=== PATIENT | female | born 1935 | race Caucasian/White ===

== ENCOUNTER 2016-05-01 10:08 | Outpatient (CLI) ==
[2015-11-12 16:06] VITALS: BMI 25.7
[2016-05-01 11:02] LABS: BASOPHILS # (AUTO) 0.1 K/uL (0-0.2); BASOPHILS % (AUTO) 1.3 % (0.0-3.0); EOSINOPHILS # (AUTO) 0.3 K/ul (0.0-0.7); EOSINOPHILS % (AUTO) 4.1 % (0.0-7.0); HEMATOCRIT 28.1 % (37.0-47.0); HEMOGLOBIN 8.3 g/dl (12.0-16.0); IMMATURE GRANULOCYTE % (AUTO) 0.2 % (0.0-5.0); LYMPHOCYTES # (AUTO) 1.8 K/uL (0.60-3.4); LYMPHOCYTES % (AUTO) 28.1 (10.0-50.0); MEAN CORPUSCULAR HEMOGLOBIN 21.1 pg (27.0-31.0); MEAN CORPUSCULAR HGB CONC 29.5 (31.8-35.4); MEAN CORPUSCULAR VOLUME 71.5 fl (81.0-99.0); MONOCYTES # (AUTO) 0.6 K/uL (0.4-2.0); MONOCYTES % (AUTO) 9.8 (0-10); NEUTROPHILS # (AUTO) 3.6 K/ul (2.0-6.9); NEUTROPHILS % (AUTO) 56.5; PLATELET COUNT 310 10^3/uL (140-440); RED BLOOD COUNT 3.93 10^6/ul (4.20-5.40); WHITE BLOOD COUNT 6.34 K/ul (4.6-10.2)
[2016-05-02 11:37] VITALS: BMI 28.0
== END 2016-05-01 10:09 | disposition home or self-care (01) ==
LOC: LAB 10:08
PROVIDERS: ATTEND Internal Medicine
DX: D64.9 Anemia, unspecified (principal)
CPT/HCPCS: 36415; 85025

== ENCOUNTER 2016-05-02 10:18 | Inpatient (IN) ==
[2016-05-02] MEDS ORDERED: TYLENOL PO PRN (10:58)
[2016-05-02] MEDS ORDERED: ATROPINE SULFATE PFS IVP PRN (10:58)
[2016-05-02] MEDS ORDERED: MORPHINE 4 MG/ML SYRINGE IVP PRN (10:58)
[2016-05-02] MEDS ORDERED: VISTARIL INJ IM PRN (10:58)
[2016-05-02] MEDS ORDERED: NITROSTAT SL PRN (10:58)
[2016-05-02 11:37] VITALS: BMI 28.0
[2016-05-02 11:50] LABS: BASOPHILS # (AUTO) 0.1 K/uL (0-0.2); BASOPHILS % (AUTO) 0.9 % (0.0-3.0); EOSINOPHILS # (AUTO) 0.2 K/ul (0.0-0.7); HEMATOCRIT 26.5 % (37.0-47.0); HEMOGLOBIN 7.9 g/dl (12.0-16.0); IMMATURE GRANULOCYTE % (AUTO) 0.2 % (0.0-5.0); LYMPHOCYTES # (AUTO) 1.6 K/uL (0.60-3.4); LYMPHOCYTES % (AUTO) 29.9 (10.0-50.0); MEAN CORPUSCULAR HEMOGLOBIN 21.2 pg (27.0-31.0); MEAN CORPUSCULAR HGB CONC 29.8 (31.8-35.4); MONOCYTES # (AUTO) 0.5 K/uL (0.4-2.0); MONOCYTES % (AUTO) 9.5 (0-10); NEUTROPHILS % (AUTO) 55.5; PLATELET COUNT 286 10^3/uL (140-440); RED BLOOD COUNT 3.73 10^6/ul (4.20-5.40); WHITE BLOOD COUNT 5.46 K/ul (4.6-10.2)
[2016-05-02 11:51] LABS: IMMATURE RETIC FRACTION 30.5; RETICULOCYTE % 1.42 %
[2016-05-02 12:52] LABS: ALBUMIN 3.7 g/dL (3.4-5.0); ALBUMIN/GLOBULIN RATIO 1.12; ANION GAP 13.1; BILIRUBIN,TOTAL 0.39 mg/dL (0.00-1.20); BUN/CREATININE RATIO 26.31; CALCIUM 8.8 mg/dL (8.2-10.2); CREATININE 0.76 mg/dL (0.60-1.30); FERRITIN 8.54 ng/mL (4.63-204.00); FOLATE 15.9 ng/mL (3.1-20.5); POTASSIUM 3.1 mmol/L (3.5-5.10); TROPONIN I 0.015 ng/ml (0.0000-0.4000)
--- NOTE | 2016-05-02 13:30 | DI ---
EXAM: Single frontal view of the chest HISTORY: Hypertension with anemia. COMPARISON: Chest x-ray 11/12/2015 FINDINGS: Cardiomediastinal silhouette is stable enlarged with intact sternotomy wires. There is no pneumothorax or pleural effusion. There is no consolidation, nodule or mass. The osseous structur es are unremarkable. There is a moderate hiatal hernia present. IMPRESSION: 1. Stable cardiomegaly with no acute cardiopulmonary process. 2. Moderate stable hiatal hernia.
--- NOTE | 2016-05-02 14:17 | CT ---
EXAM: CT abdomen with and without contrast. CT pelvis with and without contrast. HISTORY: Abdominal pain. Anemia. COMPARISON: None available. TECHNIQUE: Multiple axial images of the abdomen and pelvis were obtained prior to and following int ravenous administration of 75 mL of Omnipaque 350, low osmolar. Images reformatted in the coronal p oh. FINDINGS: Subsegmental atelectasis noted in the lung bases. Degenerative changes present in the sp ine. The liver, gallbladder, pancreas, spleen, adrenal glands, and kidneys are without acute abnormality. A 0.7 cm posterior right hepatic lobe lesion on postcontrast axial image 52 is statistically most l ikely a cyst or hemangioma Large hiatal hernia contains most of the stomach. The small and large bowel are normal in course an d caliber without evidence for obstruction or inflammatory process. The appendix is normal. Divert icula are present in the colon. Small fat-containing umbilical hernia noted. There appears to be f luid within the endometrial canal. No localized uterine abnormality identified. Bladder is unremar kable. No free fluid, free air or lymphadenopathy identified. Extensive atherosclerotic calcificati ons present. Bilateral renal artery stents noted. IMPRESSION: 1. No acute inflammatory process in the abdomen or pelvis. 2. Large hiatal hernia. 3. Diverticulosis. 4. Suspected fluid in the endometrial canal, which would be abnormal for a postmenopausal patient.
[2016-05-02] MEDS: CARAFATE PO SCH ×2 (17:00→20:36)
[2016-05-02] MEDS: PROTONIX PO SCH (17:00)
[2016-05-02] MEDS: ZANTAC PO SCH (17:00)
[2016-05-02] MEDS: COREG PO SCH (17:00)
[2016-05-02 19:25] LABS: BILIRUBIN,URINE Negative (NEGATIVE); KETONES,URINE Negative (NEGATIVE); LEUKOCYTE ESTERASE ,URINE Negative (NEGATIVE); NITRITE,URINE Negative (NEGATIVE); PROTEIN,URINE Negative (NEGATIVE); URINE, BLOOD 1+ (NEGATIVE)
[2016-05-02 19:26] LABS: ADD URINE MICROSCOPIC YES
[2016-05-02] MEDS: LIPITOR PO SCH (20:36)
[2016-05-02] MEDS: NORVASC PO SCH (20:36)
[2016-05-02] MEDS: ZOCOR PO SCH (20:36)
[2016-05-02] MEDS: FERROUS SULFATE PO SCH (20:37)
[2016-05-02 20:53] LABS: TROPONIN I 0.012 ng/ml (0.0000-0.4000)
[2016-05-02] MEDS ORDERED: CARVEDILOL PO SCH (21:00)
[2016-05-02] MEDS ORDERED: CELEXA PO SCH (21:00)
[2016-05-02] MEDS ORDERED: NON-FORMULARY MEDICATION (Ferrous Sulfate [Iron] 325 MG) PO SCH ×22 (21:00)
[2016-05-03 00:42] LABS: HEMATOCRIT 28.9 % (37.0-47.0)
[2016-05-03] MEDS: PROTONIX PO SCH ×2 (05:38→16:34)
[2016-05-03] MEDS: ZANTAC PO SCH ×2 (05:38→16:34)
[2016-05-03] MEDS: CARAFATE PO SCH ×4 (05:38→20:08)
[2016-05-03] MEDS ORDERED: PROTONIX PO SCH (06:30)
[2016-05-03] MEDS ORDERED: ASPIRIN CHEWABLE PO SCH (08:00)
[2016-05-03] MEDS ORDERED: ASPIRIN EC PO SCH (08:00)
[2016-05-03 08:06] LABS: HEMATOCRIT 31.1 % (37.0-47.0); HEMOGLOBIN 9.5 g/dl (12.0-16.0); MEAN CORPUSCULAR HEMOGLOBIN 22.1 pg (27.0-31.0); MEAN CORPUSCULAR HGB CONC 30.5 (31.8-35.4); MEAN CORPUSCULAR VOLUME 72.5 fl (81.0-99.0); RED BLOOD COUNT 4.29 10^6/ul (4.20-5.40); WHITE BLOOD COUNT 5.43 K/ul (4.6-10.2)
[2016-05-03] MEDS: COZAAR PO SCH (08:12)
[2016-05-03] MEDS: COREG PO SCH ×2 (08:12→16:34)
[2016-05-03] MEDS: HYDROCHLOROTHIAZIDE PO SCH (08:12)
[2016-05-03] MEDS: FERROUS SULFATE PO SCH ×2 (08:12→20:08)
[2016-05-03 08:35] LABS: ALANINE AMINOTRANSFERASE < 6 U/L (12-78); ALBUMIN 3.6 g/dL (3.4-5.0); ALBUMIN/GLOBULIN RATIO 1.13; ALKALINE PHOSPHATASE 51 U/L (53-141); ANION GAP 13.3; ASPARTATE AMINO TRANSFERASE 13 U/L (15-37); BILIRUBIN,TOTAL 0.74 mg/dL (0.00-1.20); BLOOD UREA NITROGEN 16 mg/dL (7-18); BUN/CREATININE RATIO 21.62; CALCIUM 8.6 mg/dL (8.2-10.2); CARBON DIOXIDE 25 mmol/L (23-31); CHLORIDE 108 mmol/L (98-107); CREATININE 0.74 mg/dL (0.60-1.30); GLUCOSE 107 mg/dL (82-115); POTASSIUM 3.3 mmol/L (3.5-5.10); SODIUM 143 mmol/L (136-145); TOTAL PROTEIN 6.8 g/dL (5.8-8.1)
[2016-05-03] MEDS ORDERED: NON-FORMULARY MEDICATION (Losartan/Hydrochlorothiazide [Losartan-Hctz 100-25 Mg Tab] 1 EAC PO SCH (09:00)
[2016-05-03] MEDS ORDERED: PLAVIX PO SCH (09:00)
[2016-05-03] MEDS: ARICEPT PO SCH (11:55)
[2016-05-03] MEDS: K-DUR PO SCH ×2 (15:22→20:08)
[2016-05-03 18:17] LABS: HEMATOCRIT 35.1 % (37.0-47.0); HEMOGLOBIN 10.9 g/dl (12.0-16.0)
[2016-05-03] MEDS: NAMENDA PO SCH (20:08)
[2016-05-03] MEDS: LIPITOR PO SCH (20:08)
[2016-05-03] MEDS: ZOCOR PO SCH (20:08)
[2016-05-03] MEDS: NORVASC PO SCH (20:08)
[2016-05-04] MEDS: CARAFATE PO SCH ×4 (05:51→20:24)
[2016-05-04] MEDS: PROTONIX PO SCH ×2 (05:51→16:37)
[2016-05-04] MEDS: ZANTAC PO SCH ×2 (05:51→16:37)
[2016-05-04 07:58] LABS: HEMATOCRIT 34.5 % (37.0-47.0); HEMOGLOBIN 10.8 g/dl (12.0-16.0); MEAN CORPUSCULAR HEMOGLOBIN 22.7 pg (27.0-31.0); MEAN CORPUSCULAR HGB CONC 31.3 (31.8-35.4); MEAN CORPUSCULAR VOLUME 72.5 fl (81.0-99.0); RED BLOOD COUNT 4.76 10^6/ul (4.20-5.40); WHITE BLOOD COUNT 7.21 K/ul (4.6-10.2)
[2016-05-04 08:14] LABS: ALANINE AMINOTRANSFERASE < 6 U/L (12-78); ALBUMIN 3.6 g/dL (3.4-5.0); ALBUMIN/GLOBULIN RATIO 1.03; ALKALINE PHOSPHATASE 52 U/L (53-141); ANION GAP 13.4; ASPARTATE AMINO TRANSFERASE 12 U/L (15-37); BILIRUBIN,TOTAL 0.69 mg/dL (0.00-1.20); BLOOD UREA NITROGEN 16 mg/dL (7-18); BUN/CREATININE RATIO 20.51; CALCIUM 8.9 mg/dL (8.2-10.2); CARBON DIOXIDE 24 mmol/L (23-31); CHLORIDE 108 mmol/L (98-107); CREATININE 0.78 mg/dL (0.60-1.30); GLUCOSE 109 mg/dL (82-115); POTASSIUM 3.4 mmol/L (3.5-5.10); SODIUM 142 mmol/L (136-145); TOTAL PROTEIN 7.1 g/dL (5.8-8.1)
[2016-05-04] MEDS: COZAAR PO SCH (08:24)
[2016-05-04] MEDS: K-DUR PO SCH ×3 (08:24→20:24)
[2016-05-04] MEDS: ARICEPT PO SCH (08:24)
[2016-05-04] MEDS: FERROUS SULFATE PO SCH ×2 (08:24→20:23)
[2016-05-04] MEDS: HYDROCHLOROTHIAZIDE PO SCH (08:25)
[2016-05-04] MEDS: COREG PO SCH ×2 (08:25→16:38)
[2016-05-04] MEDS: ZOCOR PO SCH (20:24)
[2016-05-04] MEDS: LIPITOR PO SCH (20:24)
[2016-05-04] MEDS: NORVASC PO SCH (20:24)
[2016-05-04] MEDS: NAMENDA PO SCH (20:24)
[2016-05-05 04:46] LABS: HEMATOCRIT 36.6 % (37.0-47.0); HEMOGLOBIN 11.4 g/dl (12.0-16.0); MEAN CORPUSCULAR HEMOGLOBIN 22.9 pg (27.0-31.0); MEAN CORPUSCULAR HGB CONC 31.1 (31.8-35.4); MEAN CORPUSCULAR VOLUME 73.5 fl (81.0-99.0); RED BLOOD COUNT 4.98 10^6/ul (4.20-5.40); WHITE BLOOD COUNT 5.86 K/ul (4.6-10.2)
[2016-05-05 05:06] LABS: ALANINE AMINOTRANSFERASE < 6 U/L (12-78); ALBUMIN 3.6 g/dL (3.4-5.0); ALBUMIN/GLOBULIN RATIO 1.06; ALKALINE PHOSPHATASE 53 U/L (53-141); ANION GAP 11.8; ASPARTATE AMINO TRANSFERASE 12 U/L (15-37); BILIRUBIN,TOTAL 0.48 mg/dL (0.00-1.20); BLOOD UREA NITROGEN 16 mg/dL (7-18); CALCIUM 9.4 mg/dL (8.2-10.2); CARBON DIOXIDE 28 mmol/L (23-31); CHLORIDE 107 mmol/L (98-107); GLUCOSE 112 mg/dL (82-115); POTASSIUM 3.8 mmol/L (3.5-5.10); SODIUM 143 mmol/L (136-145)
[2016-05-05] MEDS: PROTONIX PO SCH ×2 (05:31→16:52)
[2016-05-05] MEDS: ZANTAC PO SCH ×2 (05:32→16:53)
[2016-05-05] MEDS: CARAFATE PO SCH ×4 (05:32→21:00)
[2016-05-05] MEDS: ARICEPT PO SCH (08:34)
[2016-05-05] MEDS: COREG PO SCH ×2 (08:35→16:53)
[2016-05-05] MEDS: COZAAR PO SCH (08:36)
[2016-05-05] MEDS: FERROUS SULFATE PO SCH ×2 (08:37→20:57)
[2016-05-05] MEDS: K-DUR PO SCH ×3 (08:37→21:00)
[2016-05-05] MEDS: HYDROCHLOROTHIAZIDE PO SCH (08:37)
[2016-05-05] MEDS ORDERED: ZOFRAN 4 MG/2 ML IVP STA (11:41)
--- NOTE | 2016-05-05 12:19 | US ---
EXAM: Ultrasound Transvaginal Non-obstetrical. HISTORY: Endometrial fluid on recent CT. COMPARISON: Abdominal CT 05/02/2016. TECHNIQUE: Hernández scale and color doppler images with transvaginal probe. FINDINGS: The uterus measures 7.3 x 3.4 x 5.2 cm. Ovoid hypoechoic structure in the anterior myome trium near the fundus measures approximately 1.6 x 1.4 x 1.4 cm. Possible additional similar-appear ing lesion noted. Endometrial stripe measures approximately 0.4 cm. There is a moderate amount of fluid within the endometrial canal. Nabothian cyst noted in the cervix. The ovaries are not seen. No pelvic fluid collections identified. IMPRESSION: 1. Moderate amount of fluid within the endometrial canal which is abnormal for a post menopausal pa tient. Endometrial stripe is not overtly thickened. Consider direct inspection. 2. Probable small uterine fibroids. 3. Nonvisualized ovaries.
[2016-05-05] MEDS ORDERED: DULCOLAX RC STA (13:29)
[2016-05-05] MEDS ORDERED: CITRATE OF MAGNESIA PO STA (13:29)
[2016-05-05 19:20] LABS: OCCULT BLOOD INTERNAL QC 1 INTERNAL QC VALID; OCCULT BLOOD SAMPLE 1 NEGATIVE (NEGATIVE)
[2016-05-05] MEDS: ZOCOR PO SCH (20:58)
[2016-05-05] MEDS: NAMENDA PO SCH (20:58)
[2016-05-05] MEDS: NORVASC PO SCH (20:58)
[2016-05-05] MEDS: LIPITOR PO SCH (21:02)
[2016-05-06 00:02] LABS: OCCULT BLOOD INTERNAL QC 2 INTERNAL QC VALID; OCCULT BLOOD SAMPLE 2 NO SPECIMEN RECEIVED (NEGATIVE); OCCULT BLOOD SAMPLE 3 NO SPECIMEN RECEIVED (NEGATIVE)
[2016-05-06 00:03] LABS: OCCULT BLOOD INTERNAL QC 3 INTERNAL QC VALID
[2016-05-06 05:40] LABS: HEMATOCRIT 37.5 % (37.0-47.0); HEMOGLOBIN 11.6 g/dl (12.0-16.0); MEAN CORPUSCULAR HEMOGLOBIN 22.9 pg (27.0-31.0); MEAN CORPUSCULAR HGB CONC 30.9 (31.8-35.4); RED BLOOD COUNT 5.07 10^6/ul (4.20-5.40); WHITE BLOOD COUNT 6.27 K/ul (4.6-10.2)
[2016-05-06 06:03] LABS: ALBUMIN 3.7 g/dL (3.4-5.0); ALBUMIN/GLOBULIN RATIO 1.06; BILIRUBIN,TOTAL 0.58 mg/dL (0.00-1.20); BUN/CREATININE RATIO 19.75; CALCIUM 9.6 mg/dL (8.2-10.2); CREATININE 0.81 mg/dL (0.60-1.30); TOTAL PROTEIN 7.2 g/dL (5.8-8.1)
[2016-05-06] MEDS: CARAFATE PO SCH ×2 (06:04→11:00)
[2016-05-06] MEDS: PROTONIX PO SCH (06:04)
[2016-05-06] MEDS: ZANTAC PO SCH (06:04)
[2016-05-06] MEDS: FERROUS SULFATE PO SCH (08:44)
[2016-05-06] MEDS: COZAAR PO SCH (08:45)
[2016-05-06] MEDS: COREG PO SCH (08:45)
[2016-05-06] MEDS: K-DUR PO SCH (08:45)
[2016-05-06] MEDS: HYDROCHLOROTHIAZIDE PO SCH (08:46)
[2016-05-06] MEDS: ARICEPT PO SCH (08:49)
[2016-05-06] MEDS ORDERED: ZOFRAN 4 MG/2 ML IVP STA (10:38)
[2016-05-06 10:42] VITALS: BP 127/78; TEMP 97.3
--- NOTE | 2016-05-06 11:25 | CM.DICTOOL ---
ADMISSION: 05/02/16 10:18 DISCHARGE: 2016 DATE OF SERVICE: 05/06/16 FINAL DIAGNOSIS Severe anemia, transfusion 3 units packed cells Hypertension Diabetes Mellitus, type 2 Dementia Depression Diverticulosis per CT abdomen Hiatal Hernia, per CT abdomen CABG, 1993 CAD with stent application 2010 History of Carotid Artery Stenosis LVH Dyslipidemia Renal Artery Stent, bilateral LAST VITALS Temp Pulse Resp BP Pulse Ox 97.0 F L 62 20 154/78 H 97 05/06/16 06:00 05/06/16 06:00 05/06/16 06:00 05/06/16 06:00 05/06/16 06:00 ACTIVE HOME MEDICATIONS Amlodipine Besylate (Norvasc) 5 mg PO BEDTIME [facility] Last Admin: 05/05/16 20:58 Dose: 5 mg Atorvastatin Calcium (Lipitor) 10 mg PO BEDTIME [facility] Last Admin: 05/05/16 21:02 Dose: 10 mg Carvedilol (Coreg) 12.5 mg PO BIDWM [facility] Last Admin: 05/06/16 08:45 Dose: 12.5 mg Ferrous Sulfate (Ferrous Sulfate) 324 mg PO BID [facility] Last Admin: 05/06/16 08:44 Dose: 324 mg Hydrochlorothiazide (Hydrochlorothiazide) 25 mg PO DAILY [facility] Last Admin: 05/06/16 08:46 Dose: 25 mg ( dose changed to 12.5 mg daily) Losartan Potassium (Cozaar) 100 mg PO DAILY [facility] Last Admin: 05/06/16 08:45 Dose: 100 mg Pantoprazole Sodium (Protonix) 40 mg PO DAILY AC [facility] Last Admin: 05/06/16 06:04 Dose: 40 mg Ranitidine HCl (Zantac) 150 mg PO BIDAC [facility] Last Admin: 05/06/16 06:04 Dose: 150 mg Sucralfate (Carafate) 1 gm PO ACHS [facility] Last Admin: 05/06/16 06:04 Dose: 1 gm Aspirin Chewable 81 mg daily Last Admin: ALLERGIES Sulfa (Sulfonamide Antibiotics) Allergy (Verified 11/12/15 16:07) Itching NEW PRESCRIPTIONS: Aricept 5 mg take 1 every morning Namenda 10 take 1 daily at bedtime K-dur 10 meq daily Losartan 100 mg-HCTZ 12.5 mg daily SMOKING: Not applicable DISEASE SPECIFIC EDUCATION: Anemia Medication changes New Medications Hiatal Hernia Appointments LAB REVIEW: 05/06/16 05:00 02/28/17 05:00 05/06/16 05:00: WBC 6.27, RBC 5.07, Hgb 11.6 L, Hct 37.5, MCV 74.0 L, MCH 22.9 L , MCHC 30.9 L, RDW Coeff of Shadi 19.1 H, Plt Count 305, Sodium 142, Potassium 4.0 , Chloride 104, Carbon Dioxide 27, Anion Gap 15.0, BUN 16, Creatinine 0.81, Estimated GFR (MDRD) 68.00, BUN/Creatinine Ratio 19.75, Glucose 96, Calcium 9.6 , Total Bilirubin 0.58, AST 13 L, ALT 6 L, Alkaline Phosphatase 53, Total Protein 7.2, Albumin 3.7, Globulin 3.5, Albumin/Globulin Ratio 1.06 05/05/16 17:30: Stl Occult Blood (IFOB) Negative, Stool Occult Blood #2 No specimen received, Stool Occult Blood #3 No specimen received PLAN: Discharge home Diet: Resume as tolerated. Activity: Gradually resume as tolerated. No work until released by Dr. Tierney Medication change: Stop Plavix Stop Simvastatin Stop Potassium (over the counter) Stop Losartan 100 mg- HCTZ 25 mg Appointments: 1. Dr. Tierney on May 12 at 9:[address] Lane ([facility]) on May 13 at [address] Milner on June 05 at 10:15 am Ms. Basurto is alert and oriented x 3. She is forgetful at times. She is independent with ADL'S and ambulates without use of assistive device. She is eating all meals with a good appetite. She does complain of nausea after eating , but relates this to her known hiatal hernia. Last BM yesterday after dulcolax suppository and mag citrate 1/2 bottle. The stool for occult blood was negative. No skin breakdown is noted, skin is free of irritation or rashes. She is agreeable to see Dr. Lane due to anemia, hiatal hernia. She is agreeable also to a gynecology appointment. Darren Tierney MD
--- NOTE | 2016-05-06 15:18 | PN ---
DATE OF SERVICE: 05/05/16 SUBJECTIVE: The patient is an 80 year old female hospitalized with severe anemia. The patient's hgb dropped to 7.3 within 2-3 months from February 17 hgb 12 with hct 36. The patient has been given three units of packed red cells and her hgb has been stabilized 11.4 and 36. The patient was supposed to go home but she developed nausea with some vomiting. She has large hiatal hernia that could be the source of bleeding. In any case there is evidence of active GI bleed at present time. REVIEW OF SYSTEMS: CONSTITUTIONAL: No night sweats. No fatigue, malaise, lethargy. No fever or chills. HEENT: Eyes: No visual changes. No eye pain. No eye discharge. ENT: No runny nose. No epistaxis. No sinus pain. No sore throat. No odynophagia. No congestion. RESPIRATORY: No cough, no congestion. No hemoptysis. CARDIOVASCULAR: No angina symptoms. No CHF symptoms. No atypical chest pain for CAD. No palpitations. No shortness of breath. No PND. No Orthopnea. GASTROINTESTINAL: No abdominal pain. mild nausea. Constipation, BM before she goes home. She just had one BM for past 4-5 days. No hematemesis. No hematochezia. The nausea could be from Aricept but we will see how she does tomorrow. GENITOURINARY: No urgency. No frequency. No dysuria. No hematuria. No obstructive symptoms. No discharge. No pain. No significant abnormal bleeding. MUSCULOSKELETAL: No musculoskeletal pain; no joint swelling. NEUROLOGICAL: No headache. No neck pain. No syncope. No seizures. No dizziness. PSYCHIATRIC: Not anxious. No depression. No suicidal thoughts. No homicidal thoughts. SKIN: No rash. No lesions. No wounds. ENDOCRINE: No unexplained weight loss. No weight gain. HEMATOLOGIC/LYMPHATIC: No anemia. No purpura. No petechiae. No prolonged or excessive bleeding. No palpable lymph nodes. PHYSICAL EXAMINATION: GENERAL: The patient is oriented to time, place and person. VITAL SIGNS: Temperature 97.5, pulse 52, respiratory rate 18, blood pressure 145/70 and pulse ox 96%. HEENT: Head normocephalic, atraumatic. Eyes: Extraocular muscles are intact. Pupils are equal, round and reactive to light and accommodation. Ears: No lesions. Nose appeared normal. Throat: No exudate or erythema. NECK: Supple. No JVD, no carotid bruit. No lymphadenopathy or thyromegaly. LUNGS: Decreased breath sounds but clear to auscultation. Percussion note normal. Chest symmetrical. HEART: S1, S2, no S3. No murmurs. No cyanosis or clubbing. No ascites. Pulses: Dorsalis pedis and posterior tibial pulses +1 to +2 both sides. ABDOMEN: Soft. Nontender. Bowel sounds active. No CVA tenderness. No mass felt. EXTREMITIES: No edema. Full range of motion of all extremities, equal. NEUROLOGIC: No focal deficit. Cranial nerves II through XII are grossly intact. No headache, no double vision or headache. SKIN: Not dry. Intact. Turgor - normal. LYMPHATIC: No palpable lymph nodes/no lymphedema. MUSCULOSKELETAL: Normal joints with no swelling. Muscle tone is normal. ASSESSMENT: 1. Anemia, stable likely cause of bleeding could be large hiatal hernia. The patient had upper GI endoscopy and colonoscopy with in one year. 2. Coronary artery disease 3. Hypertension PLAN: 1. Continue Iron supplement 2. Continue Carafate and put on pump inhibitors 3. We already stopped the Plavix and Aspirin. 4. The patient's explained about the findings and advised not take any blood thinner except for maybe baby aspirin. 5. DC the Plavix for now. 6. The Risks that we are taking is worth it considering the patient's drop in the hgb until we figure it out what has caused this hgb drop. The patient is agreeable to be seen by conservation of resources commissioner again. The patient's other finding is the patient's endometrial fluid in the endometrial canal which is supposed to be abnormal with history of spotting. we are going to refer her to printer slotter operator. TIME SPENT: More than 30 minutes. Plan and coordination of the patient's care discussed in the presence of nurse. KARYN
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
--- NOTE | 2016-05-07 10:06 | HP ---
DATE OF SERVICE: 05/02/16 REASON FOR HOSPITALIZATION/ HISTORY OF PRESENT ILLNESS: History of anemia but lately tired with short of breath. Hgb/HCT in past few months from to 8.3/28. Short of breath with extra light headed, no symptoms of CHF. REVIEW OF SYSTEMS: CONSTITUTIONAL: No fever, Fatigue. HEENT: No sinus drainage, no sore throat. RESPIRATORY: No cough, no congestion. CARDIOVASCULAR: No atypical chest pain for coronary artery disease. No angina , CHF symptoms, palpitations. Shortness of breath mild exertion. GASTROINTESTINAL: No melena or abdominal pain. No GERD. GENITOURINARY: No hematuria, no prostatism, no polyuria. TEST DIRECTOR: No blackout, no dizziness, no headache, no double vision. MUSCULOSKELETAL: osteoarthritis pain, no joint swelling. ENDOCRINE: No weight loss, no weight gain. SKIN: Not dry, no rash. PSYCHIATRIC: Not anxious, no depression, no suicidal thoughts, no homicidal thoughts. SOCIAL HISTORY: Marital Status: ,4 children 3 living and one . Alcohol Usage: No. Tobacco Usage: No. MEDICAL/SURGICAL HISTORY: Bypass-Gastelum 1992 Stents x2 Bobby 2010 Renal artery stent Coronary artery disease Hypertension Dyslipidemia Diabetes mellitus Depression LVH Dementia History of carotid stenosis FAMILY HISTORY: Father -[place] Mother -[place] Brother-1 Sister-2 MEDICATIONS: Clopidogrel 75mg PO daily Losartan/Hydrochlorothiazide 1 each PO daily Citalopram 20mg PO bedtime Gaviscon liquid 355ml PO four times a day PRN Calcium 600/ Vitamin D one each PO twice a day Carafate 1 gram PO four times a day Zantac 150mg PO twice a day Aspirin 81mg PO daily Zocor 40mg PO bedtime Carvedilol 0.5 PO twice a day Protonix 40mg PO daily Iron 325mg PO twice a day Atorvastatin 10mg PO bedtime Norvasc 5mg PO bedtime ALLERGIES: Sulfa PHYSICAL EXAMINATION: V/S: Pulse 74, blood pressure 152/84 and pulse ox 97%. 5'3", 158.8 pounds and BMI 28.1. GENERAL APPEARANCE: Oriented times three. Pallor positive. HEENT: Normal. NECK: No JVP, no bruits. RESPIRATORY: Lungs are clear. CARDIOVASCULAR: S1, S2, no S3, Grade II/ systolic murmurs. No cyanosis, clubbing. No ascites. GI/ABDOMEN: No tenderness. Bowel sounds are active. EXTREMITIES: edema, pulses +1, equal. TEST DIRECTOR: Deep tendon reflexes, sensory, motor and gait all normal. RECTAL: 09/21 Dr. Emmanuel/PELVIC: advisedly yearly . ASSESSMENT: 1. Anemia, severe/ short of breath 2. Coronary artery disease with stent x2 2010 3. PVD 4. CABG, 5. History or carotid stenosis 6. Hypertension 7. LVH 8. Diabetes Mellitus, type 2, A1c 6.4 (04/25) 9. Dyslipidemia 10.Depression, Celexa helping 11.History of renal artery stent 12.Dementia 13.Diverticulosis of colon 14.Large Hiatal Hernia 15.LVEF 40 to 45% 16.Bradycardia 17.LV cavity enlargement 18.Vaginal bleeding x1 10 day ago little PLAN: 1. Admit to regular 2. Routine telemetry orders 3. Daily CBC and CMP AM 4. Type and cross match 2 units 5. Give one unit of packed red cells 6. Stool for Occult blood x2 7. CT scan of abdomen and pelvis with contrast 8. Continue all home medications 9. Anemia profile TIME SPENT: More than 70 minutes. MTDD
--- NOTE | 2016-05-07 11:07 | DS ---
DATE OF SERVICE: 05/06/16 FINAL DIAGNOSIS: 1. Severe anemia, transfusion 2 units packed cells 2. Hypertension 3. Diabetes mellitus, type 2 4. Dementia 5. Depression 6. Diverticulosis per CT abdomen 7. Hiatal Hernia, per CT Abdomen 8. CABG, 1992 9. Coronary artery disease with stent application 2010 10.History fo carotid artery stenosis 11.LVH 12.Dyslipidemia 13.Renal artery stent, bilateral LAST VITALS: Temperature 98, pulse 62, respiratory 20, blood pressure 154/78 and pulse ox 97% DISCHARGE INSTRUCTIONS: Discharge home. Stop Plavix. Stop Simvastatin. Stop Potassium(over the counter) . Stop Losartan 100mg-HCTZ 25mg. Dr. Tierney on may 12 at 9:15, Dr. Lane on May [address] Milner on June 05 at 10:15am. MEDICATIONS AT DISCHARGE: Norvasc 5mg PO bedtime Lipitor 10mg PO bedtime Coreg 12.5mg PO twice a day Ferrous Sulfate 324mg PO twice a day Hydrochlorothiazide 25mg PO daily Cozaar 100mg PO daily Protonix 40mg PO daily Zantac 150mg PO twice a day Carafate 1 gram PO ACHS Aspirin 81mg Daily ALLERGIES: Sulfa NEW PRESCRIPTIONS: Aricept 5mg take one every morning Namenda 10 take one daily at bedtime K-dur 10 meq daily Losartan 100mg-HCTZ 12.5mg daily DIET INSTRUCTIONS: Resume as tolerated ACTIVITY: Gradually resume as tolerated. No work until released by Dr. Tierney. SMOKING: Not applicable DISEASE SPECIFIC EDUCATION: Anemia Medication changes New medications Hiatal Hernia Appointments HOSPITAL COURSE: The patient is a 80 year old white female hospitalized with severe anemia. The patient was short of breath and fatigued. Hgb had dropped from 12.5 with hct of 37 to 7.7 with hct 22 in two to three months time. There is evidence of active GI bleed. The patient had upper GI endoscopy and colonoscopy nearly a year ago reported as practically normal except for hiatal hernia. The patient during the stay in the hospital was put on pump inhibitor and Carafate. The Plavix was discontinued 3 units of packed red cells were given. The patient's hgb is 11.6 with hct of 37 it has been stable for past 48 hours. Her cardiovascular status is stable with no evidence of coronary insufficiency or congestive heart failure. The patient also had another finding with history of vaginal spotting and endometrial fluid collection for that the patient was referred to Dr. Milner. The patient also referred to sewing room supervisor for further work up. The patient has been started on Aricept and Namenda. The family knows about her Alzheimer's disease and they are following her closely. 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 CONDITION: Stable. TIME SPENT: More than 60 minutes. KARYN
--- NOTE | 2016-05-07 11:09 | PN ---
05/02/16: Level 5 05/03/16: Intermediate 05/04/16: Intermediate 05/05/16: Intermediate 05/06/16: D as in discharge MTDD
--- NOTE | 2016-05-14 09:33 | PN ---
DATE OF SERVICE: 05/06/16 - DISCHARGE NOTE SUBJECTIVE: The patient was seen today and she is up and about. The daughter, Marisol, is present in the room. The patient is doing well. She has mild nausea, could be from Aricept, could be from her huge hiatal hernia but in any case, the patient doesn't have any vomiting. She is feeling much better. Her hemoglobin and hematocrit are stable with hemoglobin of 11.6, hematocrit 37, no evidence of bleeding. The patient is taken off Plavix. I explained to her that of course we are taking a chance by discontinuing Plavix with her coronary artery disease but needs to just stay on baby aspirin until we figure out source of bleeding and until she is seen by band splitter. The patient also has endometrial canal fluid buildup and she has been scheduled with Dr. Milner as an outpatient. REVIEW OF SYSTEMS: CONSTITUTIONAL: No night sweats. No fatigue, malaise, lethargy. No fever or chills. HEENT: Eyes: No visual changes. No eye pain. No eye discharge. ENT: No runny nose. No epistaxis. No sinus pain. No sore throat. No odynophagia. No congestion. RESPIRATORY: No cough, no congestion. No hemoptysis. CARDIOVASCULAR: No angina symptoms. No CHF symptoms. No atypical chest pain for CAD. No palpitations. No shortness of breath. GASTROINTESTINAL: No abdominal pain. No nausea or vomiting. No diarrhea or constipation. No hematemesis. No hematochezia. GENITOURINARY: No urgency. No frequency. No dysuria. No hematuria. No obstructive symptoms. No discharge. No pain. No significant abnormal bleeding. MUSCULOSKELETAL: No musculoskeletal pain; no joint swelling. NEUROLOGICAL: No headache. No neck pain. No syncope. No seizures. No dizziness. PSYCHIATRIC: Not anxious. No depression. No suicidal thoughts. No homicidal thoughts. SKIN: No rash. No lesions. No wounds. ENDOCRINE: No unexplained weight loss. No weight gain. HEMATOLOGIC/LYMPHATIC: No anemia. No purpura. No petechiae. No prolonged or excessive bleeding. No palpable lymph nodes. PHYSICAL EXAMINATION: GENERAL: The patient is oriented to time, place and person. VITAL SIGNS: Temperature 97, pulse 62, respiratory rate 20, BP 150/78, pulse ox 97%. HEENT: Head normocephalic, atraumatic. Eyes: Extraocular muscles are intact. Pupils are equal, round and reactive to light and accommodation. Ears: No lesions. Nose appeared normal. Throat: No exudate or erythema. NECK: Supple. No JVD, no carotid bruit. No lymphadenopathy or thyromegaly. LUNGS: Decreased breath sounds. Clear to auscultation. Percussion note normal. Chest symmetrical. HEART: S1, S2, no S3. No murmurs. No cyanosis or clubbing. No ascites. Pulses: Dorsalis pedis and posterior tibial pulses +1 to +2 both sides. ABDOMEN: Soft. Nontender. Bowel sounds active. No CVA tenderness. No mass felt. EXTREMITIES: No edema. Full range of motion of all extremities, equal. NEUROLOGIC: No focal deficit. Cranial nerves II through XII are grossly intact. No headache, no double vision or headache. SKIN: Not dry. Intact. Turgor - normal. LYMPHATIC: No palpable lymph nodes/no lymphedema. MUSCULOSKELETAL: Normal joints with no swelling. Muscle tone is normal. ASSESSMENT: 1. Anemia seems to be stable now. 2. Huge hiatal hernia 3. Hypertension 4. Coronary artery disease 5. Endometrial canal fluid PLAN: 1. Discharge home 2. To be followed as an outpatient - I will see her on Thursday 3. The patient is to be followed by Dr. Lane/Luis or Dr. Milner 4. The patient has agreed to take Aricept and Namenda, a smaller dose. Will increase the dose as an outpatient if tolerated. CONDITION: Stable. The patient seems functional, seems to be oriented to time, place and person. TIME SPENT: More than 30 minutes. Plan and coordination of the patient's care discussed in the presence of nurse. KARYN
== END 2016-05-06 13:27 | disposition home or self-care (01) | DRG 812 ==
LOC: MEDSURG A 10:18
PROVIDERS: ADMIT Internal Medicine; ATTEND Internal Medicine
PROC: 30233N1 Transfusion of Nonautologous Red Blood Cells into Peripheral Vein, Percutaneous Approach (ICD-10-PCS; principal; 2016-05-02)
PROC: 30233N1 Transfusion of Nonautologous Red Blood Cells into Peripheral Vein, Percutaneous Approach (ICD-10-PCS; 2016-05-02)
PROC: 30233N1 Transfusion of Nonautologous Red Blood Cells into Peripheral Vein, Percutaneous Approach (ICD-10-PCS; 2016-05-03)
DX: D64.9 Anemia, unspecified (principal); K44.9 Diaphragmatic hernia without obstruction or gangrene; K57.30 Diverticulosis of large intestine without perforation or abscess without bleeding; I10 Essential (primary) hypertension; G30.9 Alzheimer's disease, unspecified; F02.80 Dementia in other diseases classified elsewhere, unspecified severity, without behavioral disturbance, psychotic disturbance, mood disturbance, and anxiety; E11.9 Type 2 diabetes mellitus without complications; I25.10 Atherosclerotic heart disease of native coronary artery without angina pectoris; E87.6 Hypokalemia; I51.7 Cardiomegaly; E78.5 Hyperlipidemia, unspecified; F32.9 Major depressive disorder, single episode, unspecified; R11.2 Nausea with vomiting, unspecified; N95.0 Postmenopausal bleeding; Z95.1 Presence of aortocoronary bypass graft; Z95.5 Presence of coronary angioplasty implant and graft; Z86.79 Personal history of other diseases of the circulatory system; Z96.89 Presence of other specified functional implants; Z79.01 Long term (current) use of anticoagulants; Z79.899 Other long term (current) drug therapy
CPT/HCPCS: 36415; 36430; 80053; 81001; 82272; 82550; 82607; 82728; 82746; 83540; 83550; 83874; 84466; 84484; 85014; 85018; 85025; 85027; 85045; 86850; 86900; 86922; 93005; 93010

== ENCOUNTER 2016-10-22 08:02 | Outpatient (CLI) ==
--- NOTE | 2016-10-22 09:05 | US ---
Exam: Hernández-scale and color Doppler ultrasonographic evaluation of the right upper quadrant. Comparison: CT abdomen pelvis performed 05/02/2016. Reason for exam: Abdominal pain. FINDINGS: The liver measures approximately 11.06 cm in length with normal antegrade portal venous f low, and no intrahepatic ductal dilatation. There is no perihepatic free fluid. The gallbladder is unremarkable without intraluminal stones, sludge or polyp. The gallbladder wall measures 0.24 cm. The common bile duct appears unremarkable without intraluminal stone or polyp. The common bile duct measures 0.36 cm. The right kidney measures approximately 11.57 x 3.83 x 4.70 cm without hydronephrosis or nephrolithi asis. The pancreas is not well seen secondary to overlying bowel gas. Impression: No acute ultrasonographic findings are seen in the right upper quadrant.
== END 2016-10-22 08:03 | disposition home or self-care (01) ==
LOC: RAD 08:02
PROVIDERS: ATTEND Internal Medicine
DX: R10.9 Unspecified abdominal pain (principal); K21.9 Gastro-esophageal reflux disease without esophagitis

== ENCOUNTER 2016-10-24 08:35 | Outpatient (CLI) ==
--- NOTE | 2016-10-24 12:09 | NM ---
EXAM: Hepatobiliary scan HISTORY: Abdominal pain. GERD. COMPARISON: None of this type. Ultrasound 10/22/2016. PROCEDURE: The patient was injected with 5.3 mCi of 99mTc mebrofenin intravenously. Images of the a bdomen were obtained at 5 min intervals for 30 minutes. The patient was then given [address] after which images of the gallbladder were obtained to assess gallbladder contraction. FINDINGS: Sequential images demonstrate normal uptake of tracer into the liver. Activity is seen in the intrahepatic biliary ducts at about 15 minutes. The activity appears in the gallbladder at abo ut 20 minutes. Subsequent images demonstrate increasing activity in the gallbladder. Activity firs t appears in the small bowel at 45 minutes. The gallbladder ejection fraction is 35% . IMPRESSION: 1.Normal hepatobiliary scan. 2.The gallbladder ejection fraction is 35% (borderline normal).
== END 2016-10-24 08:36 ==
LOC: RAD 08:35
PROVIDERS: ATTEND Internal Medicine
DX: R10.9 Unspecified abdominal pain (principal); K21.9 Gastro-esophageal reflux disease without esophagitis

== ENCOUNTER 2016-11-27 11:35 | Outpatient (CLI) ==
[2016-11-27 11:55] LABS: BASOPHILS % (AUTO) 0.4 % (0.0-3.0); HEMATOCRIT 36.5 % (37.0-47.0); HEMOGLOBIN 12.8 g/dl (12.0-16.0); IMMATURE GRANULOCYTE % (AUTO) 0.4 % (0.0-5.0); LYMPHOCYTES # (AUTO) 1.3 K/uL (0.60-3.4); LYMPHOCYTES % (AUTO) 13.6 (10.0-50.0); MEAN CORPUSCULAR HGB CONC 35.1 (31.8-35.4); MEAN CORPUSCULAR VOLUME 85.5 fl (81.0-99.0); MONOCYTES # (AUTO) 0.9 K/uL (0.4-2.0); MONOCYTES % (AUTO) 9.7 (0-10); NEUTROPHILS # (AUTO) 7.3 K/ul (2.0-6.9); NEUTROPHILS % (AUTO) 75.9; PLATELET COUNT 180 10^3/uL (140-440); RED BLOOD COUNT 4.27 10^6/ul (4.20-5.40); WHITE BLOOD COUNT 9.62 K/ul (4.6-10.2)
[2016-11-27 12:14] LABS: ALBUMIN 3.5 g/dL (3.4-5.0); ALBUMIN/GLOBULIN RATIO 0.92; ANION GAP 16.5; BILIRUBIN,TOTAL 1.23 mg/dL (0.00-1.20); BUN/CREATININE RATIO 22.54; CALCIUM 9.6 mg/dL (8.2-10.2); CREATININE 1.02 mg/dL (0.60-1.30); POTASSIUM 3.5 mmol/L (3.5-5.10); TOTAL PROTEIN 7.3 g/dL (5.8-8.1)
== END 2016-11-27 11:36 | disposition home or self-care (01) ==
LOC: LAB 11:35
PROVIDERS: ATTEND Internal Medicine
DX: D64.9 Anemia, unspecified (principal); R53.83 Other fatigue
CPT/HCPCS: 36415; 80053; 85025

== ENCOUNTER 2016-12-04 09:04 | Inpatient (IN) ==
--- NOTE | 2016-12-04 09:32 | ED.PDOC ---
General ED Provider: Dr. LISA GAITAN Chief Complaint: Diarrhea Stated Complaint: Frequent watery stools onset 3 days ago, yesterday changed back to normal stools. Since onset has been aching all over, nauseated with occasional emesis. Denies pain. Daughter says she seems a little confused. Time Seen by Physician: 09:25 Mode of Arrival: Wheelchair Information Source: Family Primary Care Provider: ANA BARRY Nursing and Triage Documentation Reviewed and Agree: Yes Miscellaneous Complaint Exam - Complex/Multi-System Complaint/Exam Onset/Duration: 3 days Symptoms Are: Still present Episodes Lasting: Days Initial Severity: Moderate Current Severity: Moderate Location of Pain: "all over" Character: aching Aggravating: nothing Alleviating: nothing Associated Signs and Symptoms: Reports: Confusion, Weakness, Nausea, Vomiting, Diarrhea Recent Echo/LV Function: No Respiratory Distress: None JVD Present: No Tachypnea Present: No Stridor Present: No Abdominal Findings: Present: Normal findings (except for moderate epigastric tenderness) Meningeal Signs Positive: No Focal Weakness: Present: None Focal Sensory Loss: Present: None Gait: Unable Gag Reflex Present: Yes Babinski Sign: Negative Right, Negative Left Skin Findings: Present: Normal findings Joint Swelling Present: No In-Dwelling Device Present: No Differential Diagnosis: UTI (dehydration, viral gastroenteritis, influenza, cardiac etiology) Quality Indicators for AMI: EKG in 10min. Quality Indicators For Pneumonia/CAP: SpO2 assessed, Mental status assessed Review of Systems - Review Of Systems Constitutional: Reports: Malaise, Weakness Eyes: Reports: No symptoms Ears, Nose, Mouth, Throat: Reports: No symptoms Respiratory: Reports: Short of air Cardiac: Reports: No symptoms GI: Reports: Diarrhea (TNTC for 2 days, then normal BMs since yesterday), Nausea , Vomiting (twice) : Reports: No symptoms Musculoskeletal: Reports: Muscle pain (over entire body) Neurological: Reports: No symptoms All Other Systems: Reviewed and Negative Past Medical History - Past Medical History Endocrine: Reports: None Cardiovascular: Reports: CAD, VT, Hypertension Respiratory: Reports: None Hematological: Reports: None Gastrointestinal: Reports: None Genitourinary: Reports: None Neuro/Psych: Reports: None Musculoskeletal: Reports: None Cancer: Reports: None Last Menstrual Period: unknown - Surgical History General Surgical History: Reports: CABG - Family History Family History: Reports: Unknown - Social History Smoking Status: Never smoker Hx Substance Use: No Alcohol Screening: None Lives: With family - Immunizations Tetanus Shot up to Date: No Influenza Vaccine within 12 Months: No Pneumococcal Vaccine up to Date: No Physical Exam - Physical Exam Appearance: Ill-appearing Ill-appearing: Mild Pain Distress: Mild Eyes: NEY, EOMI, Conjunctiva clear ENT: Ears normal, Nose normal, Oropharynx normal Neck: Supple Respiratory: Airway patent, Breath sounds clear, Breath sounds equal, Respirations nonlabored Cardiovascular: RRR, Pulses normal, No rub, No murmur GI/: Soft, No masses, Bowel sounds normal, No Organomegaly, Tender (epigatric tenderness to palpation only) Musculoskeletal: Limited strength (requires assistance to sit up) Neurological: Sensation intact, Motor intact, Reflexes intact, Cranial nerves intact, Oriented (daughter reports some of patient's responses are incorrect, such as stating she still is having diarrhea. ) Psychiatric: Affect appropriate, Mood appropriate Interpretation - Radiology Interpretation Radiology Results: Positive (mild central interstitial edema) Exam Interpreted: Portable CXR Radiology Interpretation By: Radiologist - EKG Interpretation Time of EKG #1: 09:57 Rate: Normal Rhythm: Other (Atrial fibrillation) Ectopy: PACs Linch: NL ST Segment: Other (nonspecific changes, consider lateral ischemia) Interpretation: old inferior wall VT, ST & T wave abnormalities, consider lateral ischemia Re-Evaluation - Re-Evaluation Time of Re-Evaluation: 12:11 Status: Unchanged Vital Signs Stable: Yes Appearance: NAD Lungs: Clear Skin: Warm and Dry Neuro: Alert and Oriented X3 CV: Other (irregular rate & rhythm) Additional Comments: patient states she feels no better Critical Care Note - Critical Care Note Total Time (mins): 0 Course - Course Hematology/Chemistry: 12/04/16 09:55 12/04/16 09:55 Orders, Labs, Meds: Lab Review 12/04/16 12/04/16 12/04/16 09:55 09:55 09:55 WBC 19.61 H RBC 4.13 L Hgb 12.2 Hct 33.7 L MCV 81.6 MCH 29.5 MCHC 36.2 H RDW Coeff of Shadi 13.9 Plt Count 280 Neutrophils % (Manual) 91.0 H Band Neutrophils % 1.0 Lymphocytes % (Manual) 2.0 L Monocytes % (Manual) 2.0 Metamyelocytes % 1.0 Myelocytes % 1.0 Reactive Lymphocytes 2.0 Anisocytosis Not present Sodium 134 L Potassium 2.4 L* Chloride 98 Carbon Dioxide 22 L Anion Gap 16.4 BUN 99 H* Creatinine 3.18 H Estimated GFR (MDRD) 14.00 BUN/Creatinine Ratio 31.13 Glucose 135 H Lactic Acid 14.7 Calcium 9.0 Total Bilirubin 0.55 AST 33 ALT 50 Alkaline Phosphatase 100 Total Creatine Kinase Troponin I Total Protein 6.5 Albumin 2.3 L Globulin 4.2 Albumin/Globulin Ratio 0.55 Amylase 47 Lipase 36 Urine Color Urine Clarity Urine pH Ur Specific [place] Urine Protein Urine Glucose (UA) Urine Ketones Urine Blood Urine Nitrite Urine Bilirubin Urine Urobilinogen Ur Leukocyte Esterase Urine Microscopic RBC Urine Microscopic WBC Ur Squamous Epith Cells Ur Renal Epithelial Cell Amorphous Sediment Urine Bacteria 12/04/16 12/04/16 09:55 10:58 WBC RBC Hgb Hct MCV MCH MCHC RDW Coeff of Shadi Plt Count Neutrophils % (Manual) Band Neutrophils % Lymphocytes % (Manual) Monocytes % (Manual) Metamyelocytes % Myelocytes % Reactive Lymphocytes Anisocytosis Sodium Potassium Chloride Carbon Dioxide Anion Gap BUN Creatinine Estimated GFR (MDRD) BUN/Creatinine Ratio Glucose Lactic Acid Calcium Total Bilirubin AST ALT Alkaline Phosphatase Total Creatine Kinase 10 Troponin I 0.4360 H Total Protein Albumin Globulin Albumin/Globulin Ratio Amylase Lipase Urine Color Yellow Urine Clarity Clear Urine pH 5.5 Ur Specific [place] <=1.005 Urine Protein Negative Urine Glucose (UA) Negative Urine Ketones Negative Urine Blood Negative Urine Nitrite Negative Urine Bilirubin Negative Urine Urobilinogen 0.2 Ur Leukocyte Esterase Trace Urine Microscopic RBC 0-2 Urine Microscopic WBC 5-10 Ur Squamous Epith Cells Not present Ur Renal Epithelial Cell 0-2 Amorphous Sediment 1+ Urine Bacteria 1+ Orders Category Date Time Status ABG DRAW REQUEST Stat CARDIO 12/04/16 12:03 Ordered EKG-(ED ONLY) Stat CARDIO 12/04/16 09:42 Completed ABG Stat LAB 12/04/16 12:03 Ordered AMYLASE Stat LAB 12/04/16 09:55 Completed CBC W/ AUTO DIFF Stat LAB 12/04/16 09:55 Completed CK [CREATINE KINASE] Stat LAB 12/04/16 09:55 Completed COMPREHENSIVE METABOLIC PANEL Stat LAB 12/04/16 09:55 Completed LACTIC ACID Stat LAB 12/04/16 09:55 Completed LIPASE Stat LAB 09/28/17 09:55 Completed MANUAL DIFFERENTIAL Stat LAB 09/28/17 09:55 Completed TROPONIN I Stat LAB 12/04/16 09:55 Completed URINALYSIS C & S IF INDICATED Stat LAB 12/04/16 10:58 Completed URINE CULTURE Stat LAB 12/04/16 11:51 Received Potassium Chloride in 0.9%NaCl [Sodium Chloride 0.9%- MEDS 12/04/16 10:45 Active KCl 20 Meq] 1,000 ml IV BOLUS CHEST, 1V AP ONLY Stat RADS 12/04/16 09:42 Completed Medications Generic Name Dose Route Start Last Admin Trade Name Freq PRN Reason Stop Dose Admin Potassium Chloride/Sodium Chloride 1,000 mls @ 500 mls/hr 12/04/16 10:45 11:17 Sodium Chloride 0.9%-Kcl 20 Meq IV 12/04/16 12:44 500 mls/hr BOLUS STA Administration Vital Signs: Temp Pulse Resp BP Pulse Ox 12/04/16 09:05 98.7 F 74 20 100/65 93 L Departure - Departure Time of Disposition: 12:10 Disposition: ADMITTED INPATIENT Discharge Problem: Atrial fibrillation, Dehydration, moderate, Hypokalemia, gastrointestinal losses, Elevated troponin I level, Acute renal failure Discharge Problem: (Ruled Out): Acute renal insufficiency Condition: Good Pt referred to PMD for follow-up: Yes (PCP will follow as inpatient) Allergies/Adverse Reactions: Allergies Sulfa (Sulfonamide Antibiotics) Allergy (Verified 11/12/15 16:07) Itching Home Medications: Ambulatory Orders Aspirin [Aspirin Chewable] 81 mg PO DAILYWM 11/12/15 Calcium Carbonate/Vitamin D3 [Calcium 600-Vit D3 800 Tab] 1 each PO BID Carvedilol 0.5 tab PO BID 11/12/15 Citalopram Hydrobromide [Citalopram HBr] 20 mg PO BEDTIME 11/12/15 Mag Carb/Al Hydrox/Alginic AC [Gaviscon Liquid] 355 ml PO QID PRN 11/12/15 Pantoprazole Sodium [Protonix] 40 mg PO DAILY 11/12/15 Ranitidine HCl [Zantac] 150 mg PO BIDAC 11/12/15 Sucralfate [Carafate] 1 gm PO QID 11/12/15 Atorvastatin Calcium 10 mg PO BEDTIME 05/02/16 Donepezil HCl [Aricept] 5 mg PO DAILY #30 tablet 05/06/16 Losartan/Hydrochlorothiazide [Losartan-Hctz 100-12.5 mg Tab] 1 each PO DAILY # 30 tablet 05/06/16 Memantine HCl [Namenda] 10 mg PO BEDTIME #30 tablet 05/06/16 Potassium Chloride [K-Dur] 10 meq PO DAILY #30 tab 05/06/16 Ferrous Sulfate 324 mg PO DAILY 12/04/16 Disposition Discussed With: Patient, Family
--- NOTE | 2016-12-04 10:18 | DI ---
EXAM: CHEST FRONTAL VIEW HISTORY: Shortness of breath. COMPARISON: 05/02/2016 FINDINGS: Borderline enlarged heart size is stable. There is mild to moderate aortic atherosclerosi s. Sternotomy wires are present. Central infiltrates are seen bilaterally which are mild and likely interstitial in character. There is no well-defined lobar consolidation, visible pneumothorax or pl eural fluid. IMPRESSION: Prominent heart size and probable mild central interstitial edema. Pneumonia could appear similar cl inical correlation is recommended.
[2016-12-04 10:33] LABS: TROPONIN I 0.436 ng/ml (0.0000-0.4000)
[2016-12-04 10:34] LABS: ALBUMIN 2.3 g/dL (3.4-5.0); ALBUMIN/GLOBULIN RATIO 0.55; ANION GAP 16.4; BILIRUBIN,TOTAL 0.55 mg/dL (0.00-1.20); BUN/CREATININE RATIO 31.13; CREATININE 3.18 mg/dL (0.60-1.30); TOTAL PROTEIN 6.5 g/dL (5.8-8.1)
[2016-12-04 10:37] LABS: POTASSIUM 2.4 mmol/L (3.5-5.10)
[2016-12-04] MEDS ORDERED: SODIUM CHLORIDE 0.9%-KCL 20 MEQ 1,000 ML IV STA (10:45)
[2016-12-04 10:56] LABS: WHITE BLOOD COUNT 19.61 K/ul (4.6-10.2)
[2016-12-04 10:57] LABS: HEMATOCRIT 33.7 % (37.0-47.0); HEMOGLOBIN 12.2 g/dl (12.0-16.0); MEAN CORPUSCULAR HEMOGLOBIN 29.5 pg (27.0-31.0); MEAN CORPUSCULAR HGB CONC 36.2 (31.8-35.4); MEAN CORPUSCULAR VOLUME 81.6 fl (81.0-99.0); PLATELET COUNT 280 10^3/uL (140-440); RED BLOOD COUNT 4.13 10^6/ul (4.20-5.40)
[2016-12-04 10:58] LABS: ANISOCYTOSIS NOT PRESENT (NOT PRESENT)
[2016-12-04 11:18] LABS: BILIRUBIN,URINE Negative (NEGATIVE); KETONES,URINE Negative (NEGATIVE); LEUKOCYTE ESTERASE ,URINE Trace (NEGATIVE); NITRITE,URINE Negative (NEGATIVE); PH,URINE 5.5 (5-9); PROTEIN,URINE Negative (NEGATIVE); URINE, BLOOD Negative (NEGATIVE)
[2016-12-04 11:49] LABS: ADD URINE MICROSCOPIC YES
[2016-12-04 11:50] LABS: BACTERIA,URINE 1+ (NOT PRESENT)
[2016-12-04] MEDS ORDERED: POTASSIUM CHLORIDE 10 MEQ VIAL-ADDITIVE ONLY 40 MEQ in SODIUM CHLORIDE 1,000 ML IV STA (12:12)
[2016-12-04] MEDS ORDERED: K-DUR PO STA (12:18)
[2016-12-04 12:48] LABS: ABG BASE EXCESS -7 (-2.0-2.0); ABG HCO3 17.7 (22.0-26.0); ABG PCO2 27.7 mmHg (35-45); ABG PH 7.414 (7.35-7.45); ABG TCO2 19 (22.0-28.0)
[2016-12-04] MEDS: SODIUM CHLORIDE 0.9%-KCL 40MEQ 1,000 ML IV SCH (13:44)
[2016-12-04] MEDS ORDERED: SODIUM CHLORIDE 0.9%-KCL 40MEQ 1,000 ML IV SCH (13:45)
[2016-12-04 13:57] VITALS: BMI 26.9
[2016-12-04] MEDS: LOVENOX SUBCUT SCH (16:08)
[2016-12-04] MEDS ORDERED: ROCEPHIN 1 GM in SODIUM CHLORIDE 50 ML IV STA (16:14)
[2016-12-04] MEDS ORDERED: CARAFATE PO SCH (17:00)
[2016-12-04] MEDS: CARAFATE PO SCH ×2 (17:33→20:35)
[2016-12-04] MEDS: K-DUR PO SCH ×2 (17:33→20:35)
[2016-12-04] MEDS: ZANTAC PO SCH (17:34)
[2016-12-04] MEDS: COREG PO SCH (17:34)
[2016-12-04 18:44] LABS: ANION GAP 16.1; BUN/CREATININE RATIO 32.89; CALCIUM 8.8 mg/dL (8.2-10.2); CREATININE 3.01 mg/dL (0.60-1.30); POTASSIUM 3.1 mmol/L (3.5-5.10)
[2016-12-04] MEDS: CALCIUM 500 + VIT D 200 MG TABLET PO SCH (20:35)
[2016-12-04] MEDS: CELEXA PO SCH (20:36)
[2016-12-04] MEDS: NAMENDA PO SCH (20:36)
[2016-12-04] MEDS: LIPITOR PO SCH (20:36)
[2016-12-04] MEDS ORDERED: CALCIUM CARBONATE PO SCH (21:00)
[2016-12-04] MEDS ORDERED: [UNRECOGNIZED DRUG - OTHER] PO SCH (21:00)
[2016-12-04] MEDS ORDERED: VITAMIN D3 PO SCH (21:00)
[2016-12-04] MEDS ORDERED: CARVEDILOL PO SCH (21:00)
[2016-12-05] MEDS ORDERED: POTASSIUM CHLORIDE 20 MEQ VIAL-ADDITIVE ONLY IV ONE (01:01)
[2016-12-05] MEDS: SODIUM CHLORIDE 0.9%-KCL 40MEQ 1,000 ML IV SCH (02:20)
[2016-12-05 04:55] LABS: HEMATOCRIT 29.6 % (37.0-47.0); HEMOGLOBIN 10.3 g/dl (12.0-16.0); MEAN CORPUSCULAR HEMOGLOBIN 29.2 pg (27.0-31.0); MEAN CORPUSCULAR HGB CONC 34.8 (31.8-35.4); MEAN CORPUSCULAR VOLUME 83.9 fl (81.0-99.0); PLATELET COUNT 262 10^3/uL (140-440); RED BLOOD COUNT 3.53 10^6/ul (4.20-5.40); WHITE BLOOD COUNT 17.33 K/ul (4.6-10.2)
[2016-12-05 05:29] LABS: ALBUMIN/GLOBULIN RATIO 0.54; ANION GAP 14.1; BILIRUBIN,TOTAL 0.4 mg/dL (0.00-1.20); BUN/CREATININE RATIO 33.78; CALCIUM 8.5 mg/dL (8.2-10.2); CREATININE 2.93 mg/dL (0.60-1.30); POTASSIUM 4.1 mmol/L (3.5-5.10); TOTAL PROTEIN 5.7 g/dL (5.8-8.1)
[2016-12-05] MEDS: PROTONIX PO SCH ×2 (05:39→09:56)
[2016-12-05] MEDS: CARAFATE PO SCH ×4 (05:39→20:58)
[2016-12-05] MEDS: ZANTAC PO SCH ×2 (05:42→16:06)
[2016-12-05 06:02] LABS: ANISOCYTOSIS NOT PRESENT (NOT PRESENT)
[2016-12-05] MEDS ORDERED: K-DUR PO SCH (08:00)
[2016-12-05] MEDS: ASPIRIN CHEWABLE PO SCH (08:35)
[2016-12-05] MEDS: ARICEPT PO SCH (08:35)
[2016-12-05] MEDS: LOVENOX SUBCUT SCH (08:35)
[2016-12-05] MEDS: CALCIUM 500 + VIT D 200 MG TABLET PO SCH ×2 (08:35→20:58)
[2016-12-05] MEDS: FERROUS SULFATE PO SCH (08:35)
[2016-12-05] MEDS: COREG PO SCH ×2 (08:39→17:24)
[2016-12-05] MEDS ORDERED: NON-FORMULARY MEDICATION (Donepezil Hcl [Aricept] 5 MG) PO SCH ×11 (09:00)
[2016-12-05] MEDS ORDERED: ROCEPHIN 1 GM in SODIUM CHLORIDE 50 ML IV STA (09:21)
--- NOTE | 2016-12-05 10:03 | CT ---
Exam: CT of the brain without intravenous contrast. Comparison: None available. Reason for exam: Confusion. FINDINGS: There is a hypodensity extending from the right sylvian fissure superiorly and rostrally t o the periphery with involvement of the cortex. The quadrigeminal and ambient cisterns are patent. There is no extraaxial fluid collection. No ventricular dilatation or intraparenchymal hemorrhage. The calvarium is intact. The paranasal sinuses and mastoid air cells appear unopacified. Parenchymal changes are seen consistent with chronic microvascular disease and age related atrophy. Impression: Imaging findings are most consistent with an right frontal infarct. Recommend MRI for further charact erization. Imaging interpretation was discussed directly with Dr. Tierney and 0958 hours on 12/05/2016. The report was faxed at the same time.
--- NOTE | 2016-12-05 12:35 | MRI ---
EXAM: MRI brain without IV contrast. DATE: 05 December 2016. HISTORY: Abnormal head CT - findings most consistent with right frontal infarct. Confusion. TECHNIQUE: Sagittal T1W, axial T2W, axial FLAIR, axial T1W, axial DWI, and coronal T2W GRE sequences of the brain were obtained using 1.2 Ariana magnet. No IV contrast. COMPARISON: CT head 05 December 2016. FINDINGS: The ventricles are normal in size and configuration. CSF spaces overlying the frontal and parietal lobes are mildly prominent, without loculated fluid collections. Many cerebral sulci are s lightly prominent due to involutional change. No midline shift or herniation is apparent. No acute hemorrhage or neoplasm is identified. DWI bright signal with corresponding T2W/FLAIR mildly bright s ignal in the cortex of the right middle and inferior frontal gyri is observed. The corcoran matter is th ickened within this region, with mild effacement of the associated sulcus. Separate 2.5 mm DWI brigh t focus is now within the right postcentral gyrus inferolaterally on axial image #17. A DWI slightly bright focus in the right parietal cortex on axial image #15 could represent shine through artifact. Small areas of T2W/FLAIR hyperintense are observed in the white matter abutting each lateral ventri azucena. Small number of other T2W/FLAIR bright foci are scattered within the garrido radiata and subcort ical white matter bilaterally. Chronic left frontal garrido radiata and left parietal garrido radiata lacunar infarcts are noted. Prior Virchow-Zackary spaces are seen within the basal ganglia bilaterally . 1.5 mm T2W bright foci within each thalamus may represent old infarcts. The corcoran - white matter d ifferentiation is normal. The 7th/8th cranial nerve complexes, cerebellopontine angles, brainstem, a nd visible cervical spinal cord are normal. There is no cerebellar tonsillar ectopia. The pituitary gland is small in size. Corpus callosum is normal in size and configuration. Flow voids are presen t in the major intracranial arteries and in the dural venous sinuses. No aneurysm, AVM or dural veno us sinus thrombosis is apparent. Appearance in the lens of the left eye suggests prior cataract surg ben. No other orbit abnormality is identified. The mastoid air cells are unremarkable. T2W anterio rly bright, posteriorly intermediate signal, T1W bright, 9 x 6.6 x 8.6 mm focus near the anterior mar gin the cribriform plate/inferior margin of the left frontal sinus is best seen on the axial image #8 . There is no acute sinusitis. No neck mass or lymphadenopathy is detected. Thickening of the inne r table of the frontal bone appears benign. No calvarial neoplasm or acute fracture is evident. IMPRESSIONS: 1. Acute, nonhemorrhagic right frontal lobe cortical infarct (less likely inflammation/infection) an d tiny right postcentral gyrus infarct. No midline shift or herniation. 2. No acute hemorrhage, intra-axial neoplasm or hydrocephalus. 3. 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 4. Mild supratentorial small vessel disease. 5. Small pituitary gland. No pituitary lesion. 6. Mild cerebral atrophy. 7. Mild, benign hyperostosis frontalis interna. Unexpected findin. Well-circumscribed lesion near the anterior margin of the cribiform plate. DDX: Nasal dermoid sinus cyst, frontal sinus retention cyst with inspissated mucous, lipoma, or hemor rhagic lesion. Short interval follow-up without/with IV contrast in 2-3 months would be helpful to e xclude a growing lesion. Critical result: Report called to [facility] nurse at 1211 hrs, 05 December 2016.
--- NOTE | 2016-12-05 13:07 | PCM.PROG ---
Attending Provider: ATTENDING PROVIDER: Dr. ANA BARRY This patient is seen with Trinidad Heard, Nurse Practitioner. DATE OF SERVICE: 12/05/16 SUBJECTIVE: This 81 year old WHITE/ F was hospitalized 12/04/16. The patient is sitting in the chair, is alert. oriented to person and place this morning. Confusion has improved per boyfriend. REVIEW OF SYSTEMS: CONSTITUTIONAL: Weakness and fatigue. No night sweats. No fever or chills. HEENT: Eyes: No visual changes. No eye pain. No eye discharge. ENT: No runny nose. No epistaxis. No sinus pain. No odynophagia. No congestion. RESPIRATORY: No cough, no congestion. No hemoptysis. No shortness of breath. CARDIOVASCULAR: No angina symptoms. No CHF symptoms. No atypical chest pain for CAD. No palpitations. No orthopnea.. GASTROINTESTINAL: No abdominal pain. No nausea or vomiting. No diarrhea or constipation. No hematemesis. No hematochezia. GENITOURINARY: No urgency. No frequency. No dysuria. No hematuria. No obstructive symptoms. No discharge. No pain. No significant abnormal bleeding. MUSCULOSKELETAL: No musculoskeletal pain; no joint swelling. NEUROLOGICAL: Awake, alert, oriented to place and person with bouts of confusion. No headache. No neck pain. No syncope. No seizures. No dizziness. PSYCHIATRIC: Not anxious. No depression. No suicidal thoughts. No homicidal thoughts. SKIN: No rash. No lesions. No wounds. ENDOCRINE: No unexplained weight loss. No weight gain. HEMATOLOGIC/LYMPHATIC: No anemia. No purpura. No petechiae. No prolonged or excessive bleeding. No palpable lymph nodes. PHYSICAL EXAMINATION: GENERAL: The patient is awake, alert and oriented, sitting in chair in no distress. VITAL SIGNS: Temperature 96.4 F, Pulse 86, Respiratory Rate 16, BP 131/75, Pulse Ox 97% HEENT: Head normocephalic, atraumatic. Eyes: Extraocular muscles are intact. Pupils are equal, round and reactive to light and accommodation. Ears: No lesions. Nose appeared normal. Throat: No exudate or erythema. NECK: Supple. No JVD, no carotid bruit. No lymphadenopathy or thyromegaly. LUNGS: Breath sounds are equally diminished, no edema. Percussion note normal. Chest symmetrical. HEART: Heart rate irregular. S1, S2, no S3. No murmurs. No cyanosis or clubbing. No ascites. Pulses: Dorsalis pedis and posterior tibial pulses +1 to +2 both sides. ABDOMEN: Soft. Non-tender. Bowel sounds active. No CVA tenderness. No mass felt. EXTREMITIES: No edema. Full range of motion of all extremities, equal. NEUROLOGIC: No focal deficit. Cranial nerves II through XII are grossly intact. No headache, no double vision or headache. SKIN: Not dry. Intact. Turgor-normal. LYMPHATIC: No palpable lymph nodes/no lymphedema. MUSCULOSKELETAL: Normal joints with no swelling. Muscle tone is normal. LAB REVIEW: 12/05/16 04:53 12/05/16 04:53 12/05/16 04:53: Sodium 140, Potassium 4.1, Chloride 112 H, Carbon Dioxide 18 L, Anion Gap 14.1, BUN 99 H*, Creatinine 2.93 H, Estimated GFR (MDRD) 15.00, BUN/ Creatinine Ratio 33.78, Glucose 119 H, Calcium 8.5, Total Bilirubin 0.40, AST 25 , ALT 37, Alkaline Phosphatase 85, Total Protein 5.7 L, Albumin 2.0 L, Globulin 3.7, Albumin/Globulin Ratio 0.54 12/05/16 04:53: WBC 17.33 H, RBC 3.53 L, Hgb 10.3 L, Hct 29.6 L, MCV 83.9, MCH 29.2, MCHC 34.8, RDW Coeff of Shadi 14.4, Plt Count 262, Neutrophils % (Manual) 80.0 H, Band Neutrophils % 7.0 H, Lymphocytes % (Manual) 7.0 L, Monocytes % ( Manual) 3.0, Eosinophils % (Manual) 3.0, Anisocytosis Not present 12/04/16 18:16: Sodium 136, Potassium 3.1 L, Chloride 104, Carbon Dioxide 19 L, Anion Gap 16.1, BUN 99 H*, Creatinine 3.01 H, Estimated GFR (MDRD) 15.00, BUN/ Creatinine Ratio 32.89, Glucose 126 H, Calcium 8.8 ASSESSMENT: 1. Dehydration - improving 2. Acute renal failure improving 3. Confusion 4. New onset atrial fib 5. Hypokalemia resolved 6. Dementia 7. Abnormal UA - urine culture pending 8. CAD with stent times two 2011 PLAN: 1. D/C IV potassium after this bag 2. Potassium 20 mEq p.o. t.i.d. beginning at lunch 3. Urine culture pending 4. CT scan of head without contrast Plan and coordination of the patient's care discussed in the presence of Business Process Modeler and nurse. CONDITION: Stable SCRIBED BY: KENIA URRUTIA Clinical Product Specialist scribed while in presence of service performed by Dr. Barry/Trinidad Heard APRN on 12/05/16 ([id number])
--- NOTE | 2016-12-05 15:03 | US ---
EXAM: Ultrasound bilateral carotid duplex. HISTORY: Dizziness. COMPARISON: None available. TECHNIQUE: Multiple corcoran scale and color Doppler images were obtained. FINDINGS: Please note that estimates of internal carotid artery stenoses are based upon NASCET crite poli. Right carotid: Calcified plaquing noted without 50% or greater stenosis. Peak systolic velocity arthur surement in the right internal carotid artery is 0.4 meters per second. Right internal to common car otid artery peak systolic velocity ratio measures 1.5. End diastolic velocity measurement in the rig ht internal carotid artery is 0.1 meters per second. Flow in the right vertebral artery is antegrade . Left carotid: Calcified plaquing noted without 50% or greater stenosis. Peak systolic velocity gilda urement in the left internal carotid artery is 0.5 meters per second. Left internal to common caroti d artery peak systolic velocity ratio measures 2.0. End diastolic velocity measurement in the left i nternal carotid artery measures 0.1 meters per second. Flow in the left vertebral artery is antegrad e. IMPRESSION: 1. No evidence for 50% or greater stenosis in the right or left internal carotid artery. 2. Antegrade flow in both vertebral arteries.
--- NOTE | 2016-12-05 15:24 | RS.PTINEVL ---
Subjective - Patient information Date of Evaluation: 12/05/16 Date of Arrival on Unit: 12/04/16 Admitted From:: Home Usual Living Arrangement: Alone Home Environment: House Medical History: Hypertension, Dementia Medical History Comments:: hiatal hernia, acute renal failure, LATEX ALLERGY?: No Surgical History: CABG, Other Surgical History Comments:: coronary stents Subjective Information/ Patient Comments:: pt admitted to hospital with new onset Afib, dementia, with acute nonhemorrhagic R frontal lobe infarct, mild cerebral atrophy - Level of function Prior to this admission, the patient could do the following:: Independent ADL's , Independent Ambulation Abilities prior to this admission: pt poor historian due to dementia Current Level of Function: Partially Dependent Current Equipment Used at Home: pt unable to express Interventions - Objective Patient Orientation: Person Current Interventions: IV's, Telemetry Range of Motion - ROM Right Upper Extremity AROM: WFL's Left Upper Extremity AROM: WFL's Right Lower Extremity AROM: WFL's Left Lower Extremity AROM: WFL's Muscle Strength - Muscle Strength Right Upper Extremity Strength: Mild Weakness (RUE grossly 3+/5) Left Upper Extremity Strength: Mild Weakness (LUE grossly 3+/5) Right Lower Extremity Strength: Mild Weakness (hip flex3+/5, knee flex/ext 4-/5 , ankle Df/PF 4-/5) Left Lower Extremity Strength: Mild Weakness (LLE hip flex 3/5, knee flex/ext 3+ /5, ankle DF/PF 3+/5) Sensation - Sensation Right Upper Extremity Sensation: Intact/Normal Left Upper Extremity Sensation: Intact/Normal Right Lower Extremity Sensation: Intact/Normal Left Lower Extremity Sensation: Intact/Normal Balance - Sitting Balance and Reactions Static Sitting Balance: Fair Dynamic Sitting Balance: Poor Sitting Equilibrium Reactions: Delayed Left, Delayed Right Sitting Protective Reactions: Delayed Left, Delayed Right - Standing Balance and Reactions Static Standing Balance: Poor Dynamic Standing Balance: Poor Standing Equilibrium Reactions: Delayed Left, Delayed Right Standing Protective Reactions: Delayed Left, Delayed Right Functional Mobility - Bed Mobility Rolling R/L: Min Assist Scooting: Min Assist Supine to Sit: Min Assist Sit to Supine: Min Assist - Transfers Sit to Stand: Min Assist Stand to Sit: Min Assist - Safety Awareness Safety Awareness: Fair Ambulation - Ambulation Assistive Device Used: Gait belt Orthotic/Prosthetic Device: No Distance: 2-3 steps Assistance needed with Ambulation: Min Assist Gait Deviations: Forward posture, Short stride Ambulation Comments: pt amb with PUBLIC SAFETY DIRECTOR 2-3 steps, pt unable to amb further due to fatigue. Factors Affecting Ambulation: Decreased Balance, Weakness, Decreased Safety, Cognitive Status, Limited Endurance, Limited Sensation Treatment time - Time with patient Total treatment time: 28 Patient Education - Education Patient Education: Education of Plan of Care Teaching Recipient: Patient Teaching Methods: Discussion Comments: Discussed POC with patient. Assessment - Assessment Problem List:: Decreased level of function, Requires training/education, Decreased safety/Risk of falls, Weakness, Cognitive status limits abilities Rehab Potential: Good Further Therapy Indicated?: Yes Short Term Goals GOAL #1: pt transfer sup to/from sit to/from stand CGA Goal to be met by: 12/08/16 GOAL #2: pt amb with AAD 50ft with CGA to min x 1 with no loss of balance. Goal to be met by: 12/08/16 GOAL #3: pt demonstrate independence with rolling and scooting up in bed. Goal to be met by: 12/08/16 Food Tester Goals GOAL #1: pt transfer sup to/from sit to/from stand independently. Goal to be met by: 12/11/16 GOAL #2: pt amb with AAD 150ft with no loss of balance. Goal to be met by: 12/11/16 GOAL #3: pt with improved strength BLE 4 to 4+/5 and indepndent with HEP Goal to be met by: 12/11/16 Plan Plan of Care: Therapeutic EX, Therapeutic Activity, Self-Care/Home Management Other:: gait training Frequency of Treatment: 1-2 X day, as tolerated Duration of Treatment: 1 Week Anticipated Discharge Destination: Home
[2016-12-05] MEDS: SODIUM CHLORIDE 1,000 ML IV SCH (16:06)
[2016-12-05] MEDS: K-DUR PO SCH (17:24)
[2016-12-05] MEDS: LIPITOR PO SCH (20:58)
[2016-12-05] MEDS: CELEXA PO SCH (20:58)
[2016-12-05] MEDS: NAMENDA PO SCH (20:59)
[2016-12-06] MEDS: SODIUM CHLORIDE 1,000 ML IV SCH ×3 (04:08→19:02)
[2016-12-06 05:30] LABS: BASOPHILS % (AUTO) 0.2 % (0.0-3.0); EOSINOPHILS % (AUTO) 0.3 % (0.0-7.0); HEMATOCRIT 30.8 % (37.0-47.0); HEMOGLOBIN 10.6 g/dl (12.0-16.0); IMMATURE GRANULOCYTE % (AUTO) 0.8 % (0.0-5.0); LYMPHOCYTES # (AUTO) 0.7 K/uL (0.60-3.4); LYMPHOCYTES % (AUTO) 5.9 (10.0-50.0); MEAN CORPUSCULAR HEMOGLOBIN 29.8 pg (27.0-31.0); MEAN CORPUSCULAR HGB CONC 34.4 (31.8-35.4); MEAN CORPUSCULAR VOLUME 86.5 fl (81.0-99.0); MONOCYTES # (AUTO) 0.7 K/uL (0.4-2.0); MONOCYTES % (AUTO) 5.8 (0-10); NEUTROPHILS # (AUTO) 9.9 K/ul (2.0-6.9); PLATELET COUNT 267 10^3/uL (140-440); RED BLOOD COUNT 3.56 10^6/ul (4.20-5.40); WHITE BLOOD COUNT 11.38 K/ul (4.6-10.2)
[2016-12-06] MEDS: PROTONIX PO SCH (05:48)
[2016-12-06] MEDS: ZANTAC PO SCH ×2 (05:48→16:43)
[2016-12-06] MEDS: CARAFATE PO SCH ×4 (05:49→20:35)
[2016-12-06 06:12] LABS: ALBUMIN 2.1 g/dL (3.4-5.0); ALBUMIN/GLOBULIN RATIO 0.55; ANION GAP 14.2; BILIRUBIN,TOTAL 0.37 mg/dL (0.00-1.20); BUN/CREATININE RATIO 31.48; CALCIUM 8.9 mg/dL (8.2-10.2); CREATININE 2.7 mg/dL (0.60-1.30); POTASSIUM 4.2 mmol/L (3.5-5.10); TOTAL PROTEIN 5.9 g/dL (5.8-8.1)
[2016-12-06] MEDS: CALCIUM 500 + VIT D 200 MG TABLET PO SCH ×2 (09:53→20:36)
[2016-12-06] MEDS: ASPIRIN CHEWABLE PO SCH (09:53)
[2016-12-06] MEDS: FERROUS SULFATE PO SCH (09:53)
[2016-12-06] MEDS: ARICEPT PO SCH (09:53)
[2016-12-06] MEDS: COREG PO SCH ×2 (09:53→16:43)
[2016-12-06] MEDS: K-DUR PO SCH ×2 (09:53→16:42)
[2016-12-06] MEDS: LOVENOX SUBCUT SCH (09:54)
[2016-12-06] MEDS: ROCEPHIN 1 GM in SODIUM CHLORIDE 50 ML IV SCH (11:06)
[2016-12-06] MEDS: NAMENDA PO SCH (20:35)
[2016-12-06] MEDS: LIPITOR PO SCH (20:35)
[2016-12-06] MEDS: CELEXA PO SCH (20:35)
[2016-12-07 05:33] LABS: BASOPHILS % (AUTO) 0.2 % (0.0-3.0); EOSINOPHILS # (AUTO) 0.1 K/ul (0.0-0.7); EOSINOPHILS % (AUTO) 0.9 % (0.0-7.0); HEMATOCRIT 30.1 % (37.0-47.0); HEMOGLOBIN 10.2 g/dl (12.0-16.0); IMMATURE GRANULOCYTE % (AUTO) 0.8 % (0.0-5.0); LYMPHOCYTES # (AUTO) 0.8 K/uL (0.60-3.4); LYMPHOCYTES % (AUTO) 7.1 (10.0-50.0); MEAN CORPUSCULAR HEMOGLOBIN 29.6 pg (27.0-31.0); MEAN CORPUSCULAR HGB CONC 33.9 (31.8-35.4); MEAN CORPUSCULAR VOLUME 87.2 fl (81.0-99.0); MONOCYTES # (AUTO) 0.8 K/uL (0.4-2.0); MONOCYTES % (AUTO) 7.3 (0-10); NEUTROPHILS % (AUTO) 83.7; PLATELET COUNT 259 10^3/uL (140-440); RED BLOOD COUNT 3.45 10^6/ul (4.20-5.40); WHITE BLOOD COUNT 10.77 K/ul (4.6-10.2)
[2016-12-07] MEDS: CARAFATE PO SCH ×4 (05:41→20:48)
[2016-12-07] MEDS: ZANTAC PO SCH ×2 (05:42→17:53)
[2016-12-07] MEDS: PROTONIX PO SCH (05:42)
[2016-12-07 06:10] LABS: ALBUMIN/GLOBULIN RATIO 0.54; BILIRUBIN,TOTAL 0.33 mg/dL (0.00-1.20); BUN/CREATININE RATIO 31.33; CALCIUM 8.6 mg/dL (8.2-10.2); CREATININE 2.17 mg/dL (0.60-1.30); TOTAL PROTEIN 5.7 g/dL (5.8-8.1)
[2016-12-07] MEDS: SODIUM CHLORIDE 1,000 ML IV SCH ×2 (06:40→18:52)
[2016-12-07] MEDS: LOVENOX SUBCUT SCH (08:40)
[2016-12-07] MEDS: ARICEPT PO SCH (08:41)
[2016-12-07] MEDS: COREG PO SCH ×2 (08:41→17:52)
[2016-12-07] MEDS: CALCIUM 500 + VIT D 200 MG TABLET PO SCH ×2 (08:41→20:49)
[2016-12-07] MEDS: FERROUS SULFATE PO SCH (08:41)
[2016-12-07] MEDS: K-DUR PO SCH ×2 (08:41→17:53)
[2016-12-07] MEDS: ASPIRIN CHEWABLE PO SCH (08:41)
[2016-12-07] MEDS: ROCEPHIN 1 GM in SODIUM CHLORIDE 50 ML IV SCH (08:45)
[2016-12-07] MEDS: NORVASC PO SCH (12:02)
[2016-12-07] MEDS: COZAAR PO SCH (12:02)
[2016-12-07] MEDS: CELEXA PO SCH (20:48)
[2016-12-07] MEDS: NAMENDA PO SCH (20:49)
[2016-12-07] MEDS: LIPITOR PO SCH (20:49)
[2016-12-08] MEDS: SODIUM CHLORIDE 1,000 ML IV SCH (05:34)
[2016-12-08] MEDS: PROTONIX PO SCH (05:49)
[2016-12-08] MEDS: CARAFATE PO SCH ×4 (05:49→20:37)
[2016-12-08] MEDS: ZANTAC PO SCH ×2 (05:50→17:33)
[2016-12-08 05:54] LABS: BASOPHILS % (AUTO) 0.2 % (0.0-3.0); EOSINOPHILS # (AUTO) 0.1 K/ul (0.0-0.7); EOSINOPHILS % (AUTO) 1.2 % (0.0-7.0); HEMATOCRIT 30.4 % (37.0-47.0); HEMOGLOBIN 10.2 g/dl (12.0-16.0); IMMATURE GRANULOCYTE % (AUTO) 0.9 % (0.0-5.0); LYMPHOCYTES # (AUTO) 0.8 K/uL (0.60-3.4); LYMPHOCYTES % (AUTO) 7.8 (10.0-50.0); MEAN CORPUSCULAR HEMOGLOBIN 29.7 pg (27.0-31.0); MEAN CORPUSCULAR HGB CONC 33.6 (31.8-35.4); MEAN CORPUSCULAR VOLUME 88.4 fl (81.0-99.0); MONOCYTES # (AUTO) 0.7 K/uL (0.4-2.0); MONOCYTES % (AUTO) 6.9 (0-10); NEUTROPHILS # (AUTO) 8.7 K/ul (2.0-6.9); PLATELET COUNT 257 10^3/uL (140-440); RED BLOOD COUNT 3.44 10^6/ul (4.20-5.40); WHITE BLOOD COUNT 10.43 K/ul (4.6-10.2)
[2016-12-08 06:14] LABS: ALBUMIN/GLOBULIN RATIO 0.56; BILIRUBIN,TOTAL 0.39 mg/dL (0.00-1.20); BUN/CREATININE RATIO 25.96; CALCIUM 8.5 mg/dL (8.2-10.2); CREATININE 1.81 mg/dL (0.60-1.30); TOTAL PROTEIN 5.6 g/dL (5.8-8.1)
[2016-12-08] MEDS ORDERED: SODIUM CHLORIDE 1,000 ML IV SCH (09:11)
[2016-12-08] MEDS: ARICEPT PO SCH (09:22)
--- NOTE | 2016-12-08 09:22 | ECHO2D ---
Date of Exam: 12/07/16 Ordering Physician: ANA BARRY Room #: SCU -2 Reason for Echo: ATRIAL FIBRILLATION M-Mode Normal Adult Results LV Dimensions Normal Adult Results AoV Opening excursions >1.6 1.5 LVEDD-base- 3.5-5.8 4.4 Ao root dimensions 2.0-3.7 3.6 LVESD-base- 3.1-4.6 L. Atrium dimensions 1.9-3.8 5.1 Post. Wall thickness 0.8-1.1 1.3 IV septum (thickness) 0.7-1.2 1.3 Post. Wall excursion 0.72-1.3 0.8 Septal motion 0.5 Systolic motion R. Ventricular cavity 1.5-2.0 NORMAL LVEF 60% 50% Paradoxical septal wall motion NORMAL 2-D : ENLARGED LEFT ATRIAL CAVITY--HYPOKINETIC LEFT VENTRICLE, NORMAL VALVES, NO EFFUSION, NO THROMBUS, NORMAL LEFT VENTRICLE SIZE, CALCIFIC AORTIC VALVES COLOR FLOW: MODERATE TRICUSPID REGURGITATION AND MITRAL REGURGITATION M-MODE: MV: NORMAL AV: NORMAL TV: NORMAL PV: CHAMBER SIZE: ENLARGED LEFT ATRIAL CAVITY WALL MOTION: HYPOKINETIC LEFT VENTRICLE PERICARDIUM: NORMAL INTERPRETATION: 1. LEFT VENTRICULAR HYPERTROPHY WITH ENLARGED LEFT ATRIAL CAVITY 2. HYPOKINETIC LEFT VENTRICLE MILD WITH LEFT VENTRICULAR EJECTION FRACTION 50% 3. CALCIFIC AORTIC VALVES MTDD
[2016-12-08] MEDS: CALCIUM 500 + VIT D 200 MG TABLET PO SCH ×2 (09:23→20:37)
[2016-12-08] MEDS: ASPIRIN CHEWABLE PO SCH (09:23)
[2016-12-08] MEDS: COZAAR PO SCH (09:24)
[2016-12-08] MEDS: COREG PO SCH ×2 (09:24→17:33)
[2016-12-08] MEDS: FERROUS SULFATE PO SCH (09:24)
[2016-12-08] MEDS: K-DUR PO SCH ×2 (09:25→17:33)
[2016-12-08] MEDS: NORVASC PO SCH (09:25)
[2016-12-08] MEDS: LOVENOX SUBCUT SCH (09:25)
[2016-12-08] MEDS: ROCEPHIN 1 GM in SODIUM CHLORIDE 50 ML IV SCH (09:31)
--- NOTE | 2016-12-08 11:49 | PCM.PROG ---
Attending Provider: ATTENDING PROVIDER: Dr. ANA BARRY This patient is seen with Trinidad Heard, Nurse Practitioner. DATE OF SERVICE: 12/08/16 SUBJECTIVE: This 81 year old WHITE/ F was hospitalized 12/04/16. The patient is sitting in chair, alert and oriented this morning. She has been up to bathroom. Kidney function improving. REVIEW OF SYSTEMS: CONSTITUTIONAL: Fatigue and weakness. No night sweats. No fever or chills. HEENT: Eyes: No visual changes. No eye pain. No eye discharge. ENT: No runny nose. No epistaxis. No sinus pain. No odynophagia. No congestion. RESPIRATORY: No cough, no congestion. No hemoptysis. No shortness of breath. CARDIOVASCULAR: No angina symptoms. No CHF symptoms. No atypical chest pain for CAD. No palpitations. No orthopnea.. GASTROINTESTINAL: No abdominal pain. No nausea or vomiting. No diarrhea or constipation. No hematemesis. No hematochezia. GENITOURINARY: No urgency. No frequency. No dysuria. No hematuria. No obstructive symptoms. No discharge. No pain. No significant abnormal bleeding. MUSCULOSKELETAL: No musculoskeletal pain; no joint swelling. NEUROLOGICAL: Awake, alert and oriented to person and place this morning. She has bouts of confusion. No headache. No neck pain. No syncope. No seizures. No dizziness. PSYCHIATRIC: Not anxious. No depression. No suicidal thoughts. No homicidal thoughts. SKIN: No rash. No lesions. No wounds. ENDOCRINE: No unexplained weight loss. No weight gain. HEMATOLOGIC/LYMPHATIC: No anemia. No purpura. No petechiae. No prolonged or excessive bleeding. No palpable lymph nodes. PHYSICAL EXAMINATION: GENERAL: The patient is awake, alert and oriented to person and place, sitting in chair in no distress. VITAL SIGNS: Temperature 98.1 F, Pulse 83, Respiratory Rate 21, BP 157/89, Pulse Ox 96% HEENT: Head normocephalic, atraumatic. Eyes: Extraocular muscles are intact. Pupils are equal, round and reactive to light and accommodation. Ears: No lesions. Nose appeared normal. Throat: No exudate or erythema. NECK: Supple. No JVD, no carotid bruit. No lymphadenopathy or thyromegaly. LUNGS: Diminished breath sounds bilaterally. Clear to auscultation. Percussion note normal. Chest symmetrical. HEART: Irregular heart beat. S1, S2, no S3. No murmurs. No cyanosis or clubbing. Pulses: Dorsalis pedis and posterior tibial pulses +1 to +2 both sides. ABDOMEN: Soft. Non-tender. Bowel sounds active. No CVA tenderness. No mass felt. No ascites. EXTREMITIES: No edema. Full range of motion of all extremities, equal. NEUROLOGIC: Awake, alert and oriented this morning. She has bouts of confusion. No focal deficit. Cranial nerves II through XII are grossly intact. No headache, no double vision or headache. SKIN: Not dry. Intact. Turgor-normal. LYMPHATIC: No palpable lymph nodes/no lymphedema. MUSCULOSKELETAL: Normal joints with no swelling. Muscle tone is normal. LAB REVIEW: 12/08/16 05:45 12/08/16 05:45 12/08/16 05:45: Sodium 143, Potassium 4.0, Chloride 118 H, Carbon Dioxide 18 L, Anion Gap 11.0, BUN 47 H, Creatinine 1.81 H, Estimated GFR (MDRD) 27.00, BUN/ Creatinine Ratio 25.96, Glucose 132 H, Calcium 8.5, Total Bilirubin 0.39, AST 26 , ALT 38, Alkaline Phosphatase 73, Total Protein 5.6 L, Albumin 2.0 L, Globulin 3.6, Albumin/Globulin Ratio 0.56 12/08/16 05:45: WBC 10.43 H, RBC 3.44 L, Hgb 10.2 L, Hct 30.4 L, MCV 88.4, MCH 29.7, MCHC 33.6, RDW Coeff of Shadi 15.0 H, Plt Count 257, Immature Gran % (Auto) 0.9, Neut % (Auto) 83.0, Lymph % (Auto) 7.8 L, [place] % (Auto) 6.9, Eos % (Auto) 1.2, Baso % (Auto) 0.2, Immature Gran # (Auto) 0.1, Neut # 8.7 H, Lymph # 0.8, [place] # 0.7, Eos # 0.1, Baso # 0.0 ASSESSMENT: 1. UTI 2. Hypertension 3. Dehydration, improving 4. Acute renal failure, improving 5. New onset atrial fibrillation 6. Dementia 7. Abnormal UA, urine culture pending 8. CAD with stent times two in 2010 PLAN: 1. Decrease IV to 40 mL/hr 2. Continue NS. 3. PT/OT evaluate and treat Plan and coordination of the patient's care discussed in the presence of Telephone Appointment Clerk and nurse. CONDITION: Stable SCRIBED BY: Edson POSADAist scribed while in presence of service performed by Dr. Barry/Trinidad Heard APRN on 12/08/16 ([id number])
[2016-12-08] MEDS: LIPITOR PO SCH (20:37)
[2016-12-08] MEDS: NAMENDA PO SCH (20:37)
[2016-12-08] MEDS: CELEXA PO SCH (20:37)
[2016-12-09 05:23] LABS: BASOPHILS % (AUTO) 0.4 % (0.0-3.0); EOSINOPHILS # (AUTO) 0.1 K/ul (0.0-0.7); EOSINOPHILS % (AUTO) 0.9 % (0.0-7.0); HEMATOCRIT 29.5 % (37.0-47.0); HEMOGLOBIN 9.8 g/dl (12.0-16.0); IMMATURE GRANULOCYTE % (AUTO) 0.6 % (0.0-5.0); LYMPHOCYTES % (AUTO) 8.9 (10.0-50.0); MEAN CORPUSCULAR HEMOGLOBIN 29.6 pg (27.0-31.0); MEAN CORPUSCULAR HGB CONC 33.2 (31.8-35.4); MEAN CORPUSCULAR VOLUME 89.1 fl (81.0-99.0); MONOCYTES # (AUTO) 0.7 K/uL (0.4-2.0); MONOCYTES % (AUTO) 6.1 (0-10); NEUTROPHILS % (AUTO) 83.1; PLATELET COUNT 251 10^3/uL (140-440); RED BLOOD COUNT 3.31 10^6/ul (4.20-5.40)
[2016-12-09 05:48] LABS: ALBUMIN/GLOBULIN RATIO 0.59; ANION GAP 11.9; BILIRUBIN,TOTAL 0.41 mg/dL (0.00-1.20); BUN/CREATININE RATIO 18.7; CALCIUM 8.3 mg/dL (8.2-10.2); CREATININE 1.55 mg/dL (0.60-1.30); POTASSIUM 3.9 mmol/L (3.5-5.10); TOTAL PROTEIN 5.4 g/dL (5.8-8.1)
[2016-12-09] MEDS: CARAFATE PO SCH ×2 (05:56→12:34)
[2016-12-09] MEDS: PROTONIX PO SCH (05:56)
[2016-12-09] MEDS: ZANTAC PO SCH (05:56)
[2016-12-09] MEDS: CALCIUM 500 + VIT D 200 MG TABLET PO SCH (08:40)
[2016-12-09] MEDS: ASPIRIN CHEWABLE PO SCH (08:40)
[2016-12-09] MEDS: ROCEPHIN 1 GM in SODIUM CHLORIDE 50 ML IV SCH (08:40)
[2016-12-09] MEDS: ARICEPT PO SCH (08:41)
[2016-12-09] MEDS: COZAAR PO SCH (08:41)
[2016-12-09] MEDS: FERROUS SULFATE PO SCH (08:41)
[2016-12-09] MEDS: NORVASC PO SCH (08:41)
[2016-12-09] MEDS: COREG PO SCH (08:42)
[2016-12-09] MEDS: LOVENOX SUBCUT SCH (08:42)
[2016-12-09] MEDS: K-DUR PO SCH (08:42)
--- NOTE | 2016-12-09 10:38 | PCM.PROG ---
Attending Provider: ATTENDING PROVIDER: Dr. ANA BARRY This patient is seen with Trinidad Heard, Nurse Practitioner. DATE OF SERVICE: 12/09/16 SUBJECTIVE: This 81 year old WHITE/ F was hospitalized 12/04/16. The patient is lying in bed, is alert. She states she has been eating good. She has been up to bathroom. She continues to have bouts of confusion. REVIEW OF SYSTEMS: CONSTITUTIONAL: No night sweats. No fatigue, malaise, lethargy. No fever or chills. HEENT: Eyes: No visual changes. No eye pain. No eye discharge. ENT: No runny nose. No epistaxis. No sinus pain. No odynophagia. No congestion. RESPIRATORY: No cough, no congestion. No hemoptysis. No shortness of breath. CARDIOVASCULAR: No angina symptoms. No CHF symptoms. No atypical chest pain for CAD. No palpitations. No orthopnea.. GASTROINTESTINAL: No abdominal pain. No nausea or vomiting. No diarrhea or constipation. No hematemesis. No hematochezia. GENITOURINARY: No urgency. No frequency. No dysuria. No hematuria. No obstructive symptoms. No discharge. No pain. No significant abnormal bleeding. MUSCULOSKELETAL: No musculoskeletal pain; no joint swelling. NEUROLOGICAL: Awake, alert, oriented to person with bouts of confusion. No headache. No neck pain. No syncope. No seizures. No dizziness. PSYCHIATRIC: Not anxious. No depression. No suicidal thoughts. No homicidal thoughts. SKIN: No rash. No lesions. No wounds. ENDOCRINE: No unexplained weight loss. No weight gain. HEMATOLOGIC/LYMPHATIC: No anemia. No purpura. No petechiae. No prolonged or excessive bleeding. No palpable lymph nodes. PHYSICAL EXAMINATION: GENERAL: The patient is awake, alert, oriented to person lying in bed in no distress. VITAL SIGNS: Temperature 98.0 F, Pulse 88, Respiratory Rate 16, BP 130/80, Pulse Ox 98% HEENT: Head normocephalic, atraumatic. Eyes: Extraocular muscles are intact. Pupils are equal, round and reactive to light and accommodation. Ears: No lesions. Nose appeared normal. Throat: No exudate or erythema. NECK: Supple. No JVD, no carotid bruit. No lymphadenopathy or thyromegaly. LUNGS: Diminished breath sounds bilaterally. Clear to auscultation. Percussion note normal. Chest symmetrical. HEART: Irregular heart rate, atrial fibrillation. S1, S2, no S3. No murmurs. No cyanosis or clubbing. No ascites. Pulses: Dorsalis pedis and posterior tibial pulses +1 to +2 both sides. ABDOMEN: Soft. Non-tender. Bowel sounds active. No CVA tenderness. No mass felt. EXTREMITIES: No edema. Full range of motion of all extremities, equal. NEUROLOGIC: She has bouts of confusion. No focal deficit. Cranial nerves II through XII are grossly intact. No headache, no double vision or headache. SKIN: Not dry. Intact. Turgor-normal. LYMPHATIC: No palpable lymph nodes/no lymphedema. MUSCULOSKELETAL: Normal joints with no swelling. Muscle tone is normal. LAB REVIEW: 12/09/16 05:22 12/09/16 05:22 12/09/16 05:22: Sodium 143, Potassium 3.9, Chloride 116 H, Carbon Dioxide 19 L, Anion Gap 11.9, BUN 29 H, Creatinine 1.55 H, Estimated GFR (MDRD) 32.00, BUN/ Creatinine Ratio 18.70, Glucose 110, Calcium 8.3, Total Bilirubin 0.41, AST 18, ALT 33, Alkaline Phosphatase 72, Total Protein 5.4 L, Albumin 2.0 L, Globulin 3.4, Albumin/Globulin Ratio 0.59 12/09/16 05:22: WBC 10.80 H, RBC 3.31 L, Hgb 9.8 L, Hct 29.5 L, MCV 89.1, MCH 29.6, MCHC 33.2, RDW Coeff of Shadi 14.9 H, Plt Count 251, Immature Gran % (Auto) 0.6, Neut % (Auto) 83.1, Lymph % (Auto) 8.9 L, [place] % (Auto) 6.1, Eos % (Auto) 0.9, Baso % (Auto) 0.4, Immature Gran # (Auto) 0.1, Neut # 9.0 H, Lymph # 1.0, [place] # 0.7, Eos # 0.1, Baso # 0.0 ASSESSMENT: 1. UTI 2. Hypertension 3. Dehydration, improving 4. Acute renal failure, improving 5. New onset atrial fibrillation 6. Dementia 7. Abnormal UA, urine culture pending 8. CAD with stent times two in 2010 PLAN: 1. D/c Rocephin after tomorrow's dose 2. Will evaluate for swing bed 3. Will saline lock tomorrow 4. Start on Keflex 500 t.i.d. tomorrow Plan and coordination of the patient's care discussed in the presence of Printing Sales Representative and nurse. CONDITION: Stable SCRIBED BY: KENIA URRUTIA Talent Acquisition Manager scribed while in presence of service performed by Dr. Barry/Trinidad Heard APRN on 12/09/16 ([id number])
--- NOTE | 2016-12-09 12:55 | HP ---
DATE OF SERVICE: 12/04/16 The patient was examined by Dr. Tierney in the emergency room. HISTORY OF PRESENT ILLNESS: 81 year old female who was brought to the emergency room with dizziness, vomiting, diarrhea and low blood pressure. She has a history of anemia, coronary artery disease with stent x2, she had a CABG previously as well has been experiencing hypotension lately. She was subsequently admitted to the special care unit. 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 Dementia PAST SURGICAL HISTORY: Coronary artery disease with stent x2; 2010 CABG in 1989 Renal artery stent Left breast lumpectomy 1981 REVIEW OF SYSTEMS: CONSTITUTIONAL: No night sweats. Malaise. Low grade fever. Weakness HEENT: Eyes: No visual changes. No eye pain. No eye discharge. ENT: No runny nose. No epistaxis. No sinus pain. No sore throat. No odynophagia. No ear pain. No congestion. RESPIRATORY: No cough, no congestion. No hemoptysis. No shortness of breath. CARDIOVASCULAR: No angina symptoms. No CHF symptoms. No atypical chest pain for CAD. No palpitations. No orthopnea. Irregular rhythm. Denies any chest pain. GASTROINTESTINAL: No abdominal pain. Nausea and vomiting. Diarrhea. No constipation. No hematemesis. No hematochezia. GENITOURINARY: No urgency. No frequency. No dysuria. No hematuria. No obstructive symptoms. No discharge. No pain. No significant abnormal bleeding. MUSCULOSKELETAL: No musculoskeletal pain. No joint swelling. No arthritis. Weakness. NEUROLOGICAL: No headache. No neck pain. No syncope. No seizures. No dizziness. Alert and oriented. PSYCHIATRIC: Not anxious. No depression. No suicidal thoughts. No homicidal thoughts. SKIN: No rash. No lesions. No wounds. ENDOCRINE: No unexplained weight loss. No weight gain. HEMATOLOGIC/LYMPHATIC: No anemia. No purpura. No petechiae. No prolonged or excessive bleeding. No palpable lymph nodes. PERSONAL/FAMILY/SOCIAL HISTORY: Father with myocardial infarction and Mother with myocardial infarction; one living brother and 2 living sisters. She is . 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 She lives alone. She denies any alcohol or illicit drug use. She is a nonsmoker. MEDICATIONS: Losartan HCTZ 100/25mg daily Celexa 20mg daily Zantac 150mg twice a day Aricept 10mg daily Carafate four times a day Coreg 12.5mg twice a day Namenda 10mg daily Potassium chloride 10meq daily Protonix 40mg daily Aspirin 81mg daily ALLERGIES: Sulfa PHYSICAL EXAMINATION: GENERAL: The patient is ill appear but in no acute distress. HEENT: Head normocephalic, atraumatic. Eyes: Extraocular muscles are intact. Pupils are equal, round and reactive to light and accommodation. Ears: No lesions. Nose appeared normal. Throat: No exudate or erythema. NECK: Supple. No JVD, no carotid bruit. No lymphadenopathy or thyromegaly. LUNGS: Diminished breath sounds bilaterally, equal clear and nonlabored. Percussion note normal. Chest symmetrical. HEART: S1, S2, no S3. No murmurs. No cyanosis or clubbing. No ascites. Pulses: Dorsalis pedis and posterior tibial pulses +1 to +2 both sides. irregular rhythm off and on. ABDOMEN: Soft. Nontender. Bowel sounds hyperactive. No CVA tenderness. No mass felt. No hepatosplenomegaly EXTREMITIES: No edema. Full range of motion of all extremities, equal. NEUROLOGIC: No focal deficit. Cranial nerves II through XII are grossly intact. No headache, no double vision or headache. The patient is alert and oriented times three. SKIN: Dry. Intact. Turgor - normal. LYMPHATIC: No palpable lymph nodes/no lymphedema. MUSCULOSKELETAL: Normal joints with no swelling. Muscle tone is normal. LABS: Sodium 134, potassium 2.4, CO2 22, BUN 99, creatinine 3.18, glucose 135, total bilirubin 0.55, AST 33, ALT 50, total protein 6.5, Albumin 2.3, globulin 4.2, Alkaline phosphatase 100, Amylase 47, lipase 36, lactic acid 14.7, WBC 19.61, RBC 4.13, hgb 12.2, hct 33.7, plt count 280, Urine shows trace leucocyte with + 1 bacteria. Chest x-ray showed prominent heart size and probable mild interstitial edema and pneumonia could appear similar. Clinical correlation recommended. ABG FiO2 21, pH 7.414, pCO2 27.7, pO2 84, base excess -7, bicarb 17.7, TCO2 19, O2 sat 97, BNP 1,300. ASSESSMENT: 1. Acute renal failure 2. Acute gastroenteritis, rule out C-Diff 3. Hypokalemia 4. Possible UTI 5. Coronary artery disease with stent x2 in 2010 6. CABG 1989 7. Dementia 8. History of renal artery stent 9. Diabetes mellitus type 2 10. Dyslipidemia 11. Depression 12. Peripheral arterial disease 13. Coronary artery stenosis 14. History of anemia PLAN: 1. Admit to the special care unit 2. We will aggressively rehydrate 3. Renal failure thought to the be a result of severe dehydration 4. Routine telemetry orders 5. CBC and CMP daily 6. Urine for culture 7. Continue to monitor closely 8. Start Lovenox for atrial fibrillation 9. Co2 as needed 10.Will hold Hydrochlorothiazide and Losartan 11.Hold blood pressure medications 12.Stool for culture and C-Diff 13.Zofran 4mg for nausea 14.Sliding coverage for diabetes TIME SPENT: More than 70 minutes. MTDD
[2016-12-09 14:45] VITALS: BP 138/80; TEMP 97.9
--- NOTE | 2016-12-09 15:49 | RS.OTINEVL ---
Subjective - Patient information Date of Evaluation: 12/05/16 Date of Arrival on Unit: 12/04/16 Admitted From:: Home Usual Living Arrangement: Alone Living Arrangement Comments: Pt lives in a double wide trailer and has a few steps to enter her porch in [place]. Home Environment: House Medical History: Hypertension, Dementia Medical History Comments:: hiatal hernia, acute renal failure, LATEX ALLERGY?: No Surgical History: CABG, Other Surgical History Comments:: coronary stents Subjective Information/ Patient Comments:: "I work at [employer]. 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 Pt was independent with all ADLS. Pt was driving. Current Level of Function: Partially Dependent Current Equipment Used at Home: pt unable to express Pain Assessment - Pain Pain Score: 0 Interventions - Objective Patient Orientation: Person, Place Current Interventions: IV's, Telemetry Observation: Pt has a flat affect. Pt has difficulty with expressing herself. Pt will say she has a number of daughters but she has 4. Interventions - ROM Right Upper Extremity AROM: WFL's - Strength Right Upper Extremity Strength: Mild Weakness Left Upper Extremity Strength: Mild Weakness - Sensation Right Upper Extremity Sensation: Intact/Normal Left Upper Extremity Sensation: Intact/Normal Balance - Sitting Balance Static Sitting Balance: Normal Dynamic Sitting Balance: Good - Standing Balance Static Standing Balance: Good Dynamic Standing Balance: Fair - Comments Balance Assessment Comments: Pt will walk to fast and get out of balance. Pt has difficulty with modulation. ADL Skills - Self Feeding Self Feeding: Independent - Grooming Grooming: CGA - Bathing Bathing UE: Supervision Bathing LE: CGA - Dressing Dressing UE: Independent Dressing LE: CGA - Toilet Management Toileting Management: CGA Functional Mobility - Bed Mobility Rolling R/L: Independent Scooting: Independent Supine to Sit: Independent Sit to Supine: Independent - Transfers Sit to Stand: Independent Stand to Sit: Independent Stand Pivot Transfers: Supervision Additional Treatment Performed - Additional units charged ADL: 15 - Time with patient Total treatment time: 41 Activities Patient Interests:: Watching Television Patient Education Patient Education: Education of diagnosis, Home Exercise Program, Home Safety, Education of Plan of Care Teaching Recipient: Patient Teaching Methods: Discussion Assessment Problem List:: Decreased level of function, Decreased safety/Risk of falls Rehab Potential: Good Further Therapy Indicated?: Yes Short Term Goals - Goals GOAL 1: Pt to be SBA for toileting. Goal to be met by: 12/16/16 GOAL 2: Pt to increase safety of functional transfers to SUP. Goal to be met by: 12/16/16 GOAL 3: Pt to be able to express her wants or needs. Goal to be met by: 12/16/16 [place] Goals GOAL 1: Pt to be [place] for toileting. Goal to be met by: 12/23/16 GOAL 2: Pt to increase safety of functional transfers to [place]. Goal to be met by: 12/23/16 GOAL 3: Pt to be able to express her wants correctly on first attempt. Goal to be met by: 12/23/16 Plan Plan of Care: Therapeutic EX, Neuromuscular Re-Educ, Therapeutic Activity, Self- Care/Home Management Frequency of Treatment: 1-2 X day, as tolerated Duration of Treatment: 2 Weeks Anticipated Discharge Destination: Home
[2016-12-10] MEDS ORDERED: KEFLEX PO SCH (13:00)
--- NOTE | 2016-12-10 14:57 | PN ---
DATE OF SERVICE: 12/09/16 SUBJECTIVE: The patient was hospitalized with acute renal failure, hypokalemia, acute right frontal stroke, atrial fibrillation of new onset. The patient's condition is slowly improving. No neurological deficit. The kidney functions are a lot better. Probably getting to the baseline. By the tomorrow the patient will be off IV fluids. There is no sign of fluid overload. The patient's kidney functions will improve some by tomorrow and she will be on Eliquis, right now she is Lovenox for atrial fibrillation. Education carried out to the family and the patient about atrial fibrillation, complications and also complications of Chelo blood thinners like Eliquis like GI bleeding, Intracranial bleed and advised not to take any nonsteroidal anti-inflammatory. The patient's condition is stable. The patient was seen and examined with Nurse Practitioner and Drop Wire Operator. TIME SPENT: More than 30 minutes. Plan and coordination of the patient's care discussed in the presence of nurse. KARYN
--- NOTE | 2016-12-22 09:04 | PN ---
DATE OF SERVICE: 12/08/16 SUBJECTIVE: The patient was seen and examined with Nurse Practitioner. The patient's kidney functions are a lot better. She is alert and eating better. The family and the friend is in the room. PHYSICAL EXAMINATION: HEENT: Head normocephalic, atraumatic. Eyes: Extraocular muscles are intact. Pupils are equal, round and reactive to light and accommodation. Ears: No lesions. Nose appeared normal. Throat: No exudate or erythema. NECK: Supple. No JVD, no carotid bruit. No lymphadenopathy or thyromegaly. LUNGS: Decreased breath sounds but clear to auscultation. Percussion note normal. Chest symmetrical. HEART: S1, S2, no S3. No murmurs. No cyanosis or clubbing. No ascites. Pulses: Dorsalis pedis and posterior tibial pulses +1 to +2 both sides. ABDOMEN: Soft. Nontender. Bowel sounds active. No CVA tenderness. No mass felt. EXTREMITIES: No edema. Full range of motion of all extremities, equal. NEUROLOGIC: No focal deficit. Cranial nerves II through XII are grossly intact. No headache, no double vision or headache. SKIN: Not dry. Intact. Turgor - normal. LYMPHATIC: No palpable lymph nodes/no lymphedema. MUSCULOSKELETAL: Normal joints with no swelling. Muscle tone is normal. ASSESSMENT: 1. The patient had a stroke acute right frontal with no neurological deficit and she is up and about on her own and taking some steps with no problems swallowing noted. She is moving all her extremities. PLAN: 1. Decrease the IV fluids 2. Encourage the patient to eat 3. We may consider starting the patient on Eliquis 4. The patient had an echocardiogram done which showed LVH with hypokinetic LV contractility with borderline LA cavity enlargement. CONDITION: Stable and Improving TIME SPENT: More than 30 minutes. Plan and coordination of the patient's care discussed in the presence of nurse. KARYN
--- NOTE | 2016-12-22 09:11 | PN ---
DATE OF SERVICE: 12/07/16 SUBJECTIVE: 81 year old white female hospitalized with acute renal failure, renal azotemia, acute gastroenteritis and hypokalemia. The patient's problems are getting better and she is eating somewhat better. She is drowsy today but alert. The patient's daughter who comes from [place] is in the room, she is going to leave today. REVIEW OF SYSTEMS: CONSTITUTIONAL: No night sweats. No fatigue, malaise, lethargy. No fever or chills. HEENT: Eyes: No visual changes. No eye pain. No eye discharge. ENT: No runny nose. No epistaxis. No sinus pain. No sore throat. No odynophagia. No congestion. RESPIRATORY: No cough, no congestion. No hemoptysis. No shortness of breath. CARDIOVASCULAR: No angina symptoms. No CHF symptoms. No atypical chest pain for CAD. No palpitations. No orthopnea. No PND. GASTROINTESTINAL: No abdominal pain. No nausea or vomiting. No diarrhea or constipation. No hematemesis. No hematochezia. Appetite is improving. GENITOURINARY: No urgency. No frequency. No dysuria. No hematuria. No obstructive symptoms. No discharge. No pain. No significant abnormal bleeding. MUSCULOSKELETAL: No musculoskeletal pain; no joint swelling. NEUROLOGICAL: No headache. No neck pain. No syncope. No seizures. No dizziness. PSYCHIATRIC: Not anxious. No depression. No suicidal thoughts. No homicidal thoughts. Confusion. SKIN: No rash. No lesions. No wounds. ENDOCRINE: No unexplained weight loss. No weight gain. HEMATOLOGIC/LYMPHATIC: No anemia. No purpura. No petechiae. No prolonged or excessive bleeding. No palpable lymph nodes. PHYSICAL EXAMINATION: GENERAL: The patient is oriented to person. VITAL SIGNS: Temperature 97.5, pulse 83, respiratory rate 20, blood pressure 158/109 and pulse ox 95%. HEENT: Head normocephalic, atraumatic. Eyes: Extraocular muscles are intact. Pupils are equal, round and reactive to light and accommodation. Ears: No lesions. Nose appeared normal. Throat: No exudate or erythema. NECK: Supple. No JVD, no carotid bruit. No lymphadenopathy or thyromegaly. LUNGS: Decreased breath sounds but clear to auscultation. Percussion note normal. Chest symmetrical. HEART: S1, S2, no S3. No murmurs. No cyanosis or clubbing. No ascites. Pulses: Dorsalis pedis and posterior tibial pulses +1 to +2 both sides. ABDOMEN: Soft. Nontender. Bowel sounds active. No CVA tenderness. No mass felt. EXTREMITIES: No edema. Full range of motion of all extremities, equal. NEUROLOGIC: No focal deficit. Cranial nerves II through XII are grossly intact. No headache, no double vision or headache. SKIN: Not dry. Intact. Turgor - normal. LYMPHATIC: No palpable lymph nodes/no lymphedema. MUSCULOSKELETAL: Normal joints with no swelling. Muscle tone is normal. LABS: hgb 10.2, hct 30, WBC 10,700 normal differential, creatinine 2.1, BUN 68 and potassium 4. ASSESSMENT: 1. Acute renal azotemia, failure seems to be improving with improvement in creatinine and BUN 2. Dehydration seems to be subsiding 3. Acute stroke with right frontal area seems to have no neurological deficit. 4. Atrial fibrillation, new onset on Lovenox 5. Coronary bypass surgery 6. Hypokalemia resolved PLAN: 1. Add Losartan 100mg PO daily 2. Norvasc 5mg PO now 3. The patient has systolic hypertension which needs to be controlled CONDITION: Stable All the diagnosis discussed with the family. TIME SPENT: More than 30 minutes. Plan and coordination of the patient's care discussed in the presence of nurse. KARYN
--- NOTE | 2016-12-22 09:49 | PN ---
DATE OF SERVICE: 12/06/16 SUBJECTIVE: 81 year old white female hospitalized with multiple medical problems. The patient had acute renal failure with azotemia and also now has urinary tract infection, e-coli sensitive to ceftriaxone. She had hypokalemia and also was diagnosed wit have acute right frontal lobe infarct. The patient prior to hospitalization had acute gastroenteritis which seems to have subsided. The patient is alert and oriented to person and place. Her appetite is improving. The three daughters are in the room. REVIEW OF SYSTEMS: CONSTITUTIONAL: No night sweats. No fatigue, malaise, lethargy. No fever or chills. HEENT: Eyes: No visual changes. No eye pain. No eye discharge. ENT: No runny nose. No epistaxis. No sinus pain. No sore throat. No odynophagia. No congestion. RESPIRATORY: No cough, no congestion. No hemoptysis. No shortness of breath. CARDIOVASCULAR: No angina symptoms. No CHF symptoms. No atypical chest pain for CAD. No palpitations. No orthopnea. No PND. GASTROINTESTINAL: No abdominal pain. No nausea or vomiting. No diarrhea or constipation. No hematemesis. No hematochezia. GENITOURINARY: No urgency. No frequency. No dysuria. No hematuria. No obstructive symptoms. No discharge. No pain. No significant abnormal bleeding. MUSCULOSKELETAL: No musculoskeletal pain; no joint swelling. NEUROLOGICAL: No headache. No neck pain. No syncope. No seizures. No dizziness. PSYCHIATRIC: Not anxious. No depression. No suicidal thoughts. No homicidal thoughts. SKIN: No rash. No lesions. No wounds. ENDOCRINE: No unexplained weight loss. No weight gain. HEMATOLOGIC/LYMPHATIC: No anemia. No purpura. No petechiae. No prolonged or excessive bleeding. No palpable lymph nodes. PHYSICAL EXAMINATION: GENERAL: The patient is oriented to person and place. VITAL SIGNS: Temperature 97.5, pulse 93, respiratory rate 20, blood pressure 142/85 and pulse ox 95%. HEENT: Head normocephalic, atraumatic. Eyes: Extraocular muscles are intact. Pupils are equal, round and reactive to light and accommodation. Ears: No lesions. Nose appeared normal. Throat: No exudate or erythema. NECK: Supple. No JVD, no carotid bruit. No lymphadenopathy or thyromegaly. LUNGS: Decreased breath sounds but clear to auscultation. Percussion note normal. Chest symmetrical. HEART: S1, S2, no S3. No murmurs. No cyanosis or clubbing. No ascites. Pulses: Dorsalis pedis and posterior tibial pulses +1 to +2 both sides. ABDOMEN: Soft. Nontender. Bowel sounds active. No CVA tenderness. No mass felt. EXTREMITIES: No edema. Full range of motion of all extremities, equal. NEUROLOGIC: No focal deficit. Cranial nerves II through XII are grossly intact. No headache, no double vision or headache. SKIN: Not dry. Intact. Turgor - normal. LYMPHATIC: No palpable lymph nodes/no lymphedema. MUSCULOSKELETAL: Normal joints with no swelling. Muscle tone is normal. LABS: Hgb 10.6, hct 30, WBC 11,000 normal differential, creatinine 2.7, BUN 85, potassium 4.2. ASSESSMENT: 1. Acute renal failure with acute renal azotemia which seems to be subsiding 2. Hypokalemia resolved 3. Acute frontal lobe infarct with no neurological deficit 4. Atrial fibrillation new onset already on Lovenox 5. Acute urinary tract infection on Rocephin 6. Dementia PLAN: 1. Continue IV antibiotics as described 2. Watch for fluid overload 3. Daily CBC and CMP 4. Encouraged the patient to eat 5. Will do echocardiogram to evaluate LA size, Thrombus, thrombi, LV functions and valves. CONDITION: Stable. TIME SPENT: More than 30 minutes. Plan and coordination of the patient's care discussed in the presence of nurse. KARYN
--- NOTE | 2016-12-24 14:45 | PN ---
DATE OF SERVICE: 12/05/16 SUBJECTIVE: 81 year old white female hospitalized with multiple medical problems like acute renal failure, acute gastroenteritis, atrial fibrillation, confusion and hypokalemia all of the medical conditions are under control and she looks a lot better. She is oriented to person. The boyfriend is in the room and he says that the patient has improved remarkably and she is moving all her extremities. PHYSICAL EXAMINATION: GENERAL: The patient is VITAL SIGNS: HEENT: Head normocephalic, atraumatic. Eyes: Extraocular muscles are intact. Pupils are equal, round and reactive to light and accommodation. Ears: No lesions. Nose appeared normal. Throat: No exudate or erythema. NECK: Supple. No JVD, no carotid bruit. No lymphadenopathy or thyromegaly. LUNGS: Decreased breath sounds but clear to auscultation. Percussion note normal. Chest symmetrical. HEART: S1, S2, no S3. No murmurs. No cyanosis or clubbing. No ascites. Pulses: Dorsalis pedis and posterior tibial pulses +1 to +2 both sides. ABDOMEN: Soft. Nontender. Bowel sounds active. No CVA tenderness. No mass felt. EXTREMITIES: No edema. Full range of motion of all extremities, equal. NEUROLOGIC: No focal deficit. Cranial nerves II through XII are grossly intact. No headache, no double vision or headache. SKIN: Not dry. Intact. Turgor - normal. LYMPHATIC: No palpable lymph nodes/no lymphedema. MUSCULOSKELETAL: Normal joints with no swelling. Muscle tone is normal. LABS: Creatinine 2.9, BUN 99 improvement, potassium is now 4.1 which was 2.[address] scan of the head showed right frontal infarct very likely the radiologist called so MRI is ordered without contrast. The patient's physical condition is improving along with mental condition. PLAN: 1. Continue IV Rocephin possibility of UTI CONDITION: Stable The patient was seen and examined with Nurse Practitioner and Clinic Physician. TIME SPENT: More than 30 minutes. Plan and coordination of the patient's care discussed in the presence of nurse. ADDENDUM: The patient ended up having MRI and it showed recent infarct on the right frontal lobe, also it showed old infarcts in the left frontal lobe and thalamus both sides. The patient is in atrial fibrillation. We will do echocardiogram. The patient is going to be on Eliquis 5mg PO twice a day. Side effects of Eliquis discussed with the family and intracranial bleed and GI bleed that the two side effects. The risk of atrial fibrillation discussed with the patient's family. The patient's GWEN'S 2 score is more than 5. CONDITION: Stable MTDD
--- NOTE | 2016-12-24 15:21 | DS ---
DATE OF SERVICE: 12/09/16 FINAL DIAGNOSIS: 1. New onset Atrial fibrillation 2. Multiple CVA's, age indeterminate 3. Generalized muscle weakness 4. Large hiatal hernia 5. Dementia with behavioral disturbances 6. Urinary tract infection REVIEW OF SYSTEMS: CONSTITUTIONAL: No night sweats. No fatigue, malaise, lethargy. No fever or chills. HEENT: Eyes: No visual changes. No eye pain. No eye discharge. ENT: No runny nose. No epistaxis. No sinus pain. No sore throat. No odynophagia. No congestion. RESPIRATORY: No cough, no congestion. No hemoptysis. No shortness of breath. CARDIOVASCULAR: No angina symptoms. No CHF symptoms. No atypical chest pain for CAD. No palpitations. No orthopnea. GASTROINTESTINAL: No abdominal pain. No nausea or vomiting. No diarrhea or constipation. No hematemesis. No hematochezia. GENITOURINARY: No urgency. No frequency. No dysuria. No hematuria. No obstructive symptoms. No discharge. No pain. No significant abnormal bleeding. MUSCULOSKELETAL: No musculoskeletal pain; no joint swelling. Generalized muscle weakness. NEUROLOGICAL: No headache. No neck pain. No syncope. No seizures. No dizziness. Bouts of confusion. PSYCHIATRIC: Not anxious. No depression. No suicidal thoughts. No homicidal thoughts. SKIN: No rash. No lesions. No wounds. ENDOCRINE: No unexplained weight loss. No weight gain. HEMATOLOGIC/LYMPHATIC: No anemia. No purpura. No petechiae. No prolonged or excessive bleeding. No palpable lymph nodes. PHYSICAL EXAMINATION: HEENT: Head normocephalic, atraumatic. Eyes: Extraocular muscles are intact. Pupils are equal, round and reactive to light and accommodation. Ears: No lesions. Nose appeared normal. Throat: No exudate or erythema. NECK: Supple. No JVD, no carotid bruit. No lymphadenopathy or thyromegaly. LUNGS: Clear with diminished breath sounds bilaterally equal and clear. Percussion note normal. Chest symmetrical. HEART: S1, S2, no S3. No murmurs. No cyanosis or clubbing. No ascites. Pulses: Dorsalis pedis and posterior tibial pulses +1 to +2 both sides. Heart rate is irregular. Irregularity due to atrial fibrillation. ABDOMEN: Soft. Nontender. Bowel sounds active. No CVA tenderness. No mass felt. EXTREMITIES: No edema. Full range of motion of all extremities, equal. NEUROLOGIC: No focal deficit. Cranial nerves II through XII are grossly intact. No headache, no double vision or headache. No facial drooping. No evidence of weakness from previous CVA. Alert and oriented to person, place and time although she does experience bouts of confusion. SKIN: Not dry. Intact. Turgor - normal. LYMPHATIC: No palpable lymph nodes/no lymphedema. MUSCULOSKELETAL: Normal joints with no swelling. Muscle tone is normal. Full range of motion although has some generalized weakness. DISCHARGE INSTRUCTIONS: Discharge from Acute to be admitted to swing bed. Continue the same orders and medications. PT/OT evaluation. MEDICATIONS AT DISCHARGE: Citalopram 20mg PO bedtime Gaviscon liquid 355ml PO four times a day PRN Calcium 600-Vitamin D3 800 one each PO twice a day Carafate 1gram PO four times a day Zantac 150mg PO twice a day Aspirin chewable 81mg PO daily Carvedilol 0.5 tablet PO twice a day Protonix 40mg Po daily Atorvastatin 10mg PO bedtime Losartan-Hctz 100-12.5mg PO daily Namenda 10mg PO bedtime K-Dur 20meq PO daily Aricept 5mg PO daily Ferrous Sulfate 324mg PO daily DIET INSTRUCTIONS: As tolerated ACTIVITY: As tolerated SMOKING: N/A DISEASE SPECIFIC EDUCATION: Swing bed admission Medications HOSPITAL COURSE: This is an 81 year old white female who was admitted through the emergency room after presenting with extreme weakness. It was found that she was in atrial fibrillation and she had severe hypokalemia with potassium of 2.9. She had been experiencing some vomiting over the past sever days prior to coming to the emergency room. She was severely dehydrated with a creatinine of 3. She was placed in the special care unit and placed on routine telemetry orders. With slow IV hydration her kidney function had steadily improved everyday. It is near normal on day of discharge at 1.6. She was given aggressive potassium replacement and potassium has remained stable since and it 3.4 on day of discharge she was placed on Lovenox daily subcutaneously due to new onset of atrial fibrillation. Her blood pressure was slightly elevated and she was started on Coreg in hopes to control her rate which this was successful. She is on 12.5 twice a day. It was also found that she did have a slight urinary tract infection due to e-coli 50-60,000 colonies for which she was started on Rocephin 1 gram IV daily. She is discharged on Keflex 500mg PO. Blood pressure has remained stable. She was acutely confused upon admission. Today on day of discharge she is alert and oriented. She does have some bouts of confusion due to Dementia. Although her condition has steadily improved it was found on the second day of admission CT scan of the brain showed that she had had multiple infarcts most recently in the right frontal lobe. She has showed no weakness as a result of these infarcts and no facial drooping and no extremities weakness. She is up and about with assistance of a walker. She does have generalized weakness due to dehydration. She will be admitted to swing bed with continuation of IV fluids in order to improve her kidney function, continuation of Lovenox due to onset atrial fibrillation, continuation of telemetry due to new onset atrial fibrillation and we will continue to follow her closely. She will also be placed on swing in order to start physical and occupation therapy. TIME SPENT: More than 60 minutes. KARYN
== END 2016-12-09 15:23 | disposition swing bed (61) | DRG 308 ==
LOC: ED 09:04 → SCU 12:21 → MEDSURG B 12-08 21:00
PROVIDERS: ADMIT Internal Medicine; ATTEND Internal Medicine
DX: I48.91 Unspecified atrial fibrillation (principal); I63.8 Other cerebral infarction; F03.91 Unspecified dementia, unspecified severity, with behavioral disturbance; F05 Delirium due to known physiological condition; N39.0 Urinary tract infection, site not specified; N17.9 Acute kidney failure, unspecified; K52.9 Noninfective gastroenteritis and colitis, unspecified; I51.7 Cardiomegaly; E87.6 Hypokalemia; E86.0 Dehydration; R79.89 Other specified abnormal findings of blood chemistry; I10 Essential (primary) hypertension; I25.10 Atherosclerotic heart disease of native coronary artery without angina pectoris; F44.89 Other dissociative and conversion disorders; R10.816 Epigastric abdominal tenderness; M62.81 Muscle weakness (generalized); K44.9 Diaphragmatic hernia without obstruction or gangrene; B96.20 Unspecified Escherichia coli [E. coli] as the cause of diseases classified elsewhere; I25.2 Old myocardial infarction; Z86.73 Personal history of transient ischemic attack (TIA), and cerebral infarction without residual deficits; N28.9 Disorder of kidney and ureter, unspecified; Z79.899 Other long term (current) drug therapy; Z95.5 Presence of coronary angioplasty implant and graft
CPT/HCPCS: 36415; 80048; 80053; 81001; 82150; 82550; 82803; 83605; 83690; 83880; 84484; 85007; 85025; 87081; 87086; 87186; 87493; 93005; 93010; 96365; 96366; 99223; 99232; 99239; 99284

== ENCOUNTER 2016-12-09 15:32 | Inpatient (IN) ==
[2016-12-09 17:06] VITALS: BMI 27.9
[2016-12-09] MEDS: COREG PO SCH (17:43)
[2016-12-09] MEDS: K-DUR PO SCH (17:43)
[2016-12-09] MEDS: ZANTAC PO SCH (17:44)
[2016-12-09] MEDS: CARAFATE PO SCH ×2 (17:48→20:39)
[2016-12-09] MEDS: LIPITOR PO SCH (20:40)
[2016-12-09] MEDS: CALCIUM 500 + VIT D 200 MG TABLET PO SCH (20:41)
[2016-12-09] MEDS: NAMENDA PO SCH (20:41)
[2016-12-09] MEDS: CELEXA PO SCH (20:41)
[2016-12-09] MEDS ORDERED: CARVEDILOL PO SCH (21:00)
[2016-12-09] MEDS ORDERED: VITAMIN D3 PO SCH (21:00)
[2016-12-09] MEDS ORDERED: CALCIUM CARBONATE PO SCH (21:00)
[2016-12-09] MEDS ORDERED: [UNRECOGNIZED DRUG - OTHER] PO SCH (21:00)
[2016-12-10 05:09] LABS: BASOPHILS # (AUTO) 0.1 K/uL (0-0.2); BASOPHILS % (AUTO) 0.4 % (0.0-3.0); EOSINOPHILS # (AUTO) 0.1 K/ul (0.0-0.7); HEMATOCRIT 31.5 % (37.0-47.0); HEMOGLOBIN 10.5 g/dl (12.0-16.0); IMMATURE GRANULOCYTE % (AUTO) 0.6 % (0.0-5.0); LYMPHOCYTES % (AUTO) 8.7 (10.0-50.0); MEAN CORPUSCULAR HEMOGLOBIN 29.7 pg (27.0-31.0); MEAN CORPUSCULAR HGB CONC 33.3 (31.8-35.4); MEAN CORPUSCULAR VOLUME 89.2 fl (81.0-99.0); MONOCYTES # (AUTO) 0.6 K/uL (0.4-2.0); MONOCYTES % (AUTO) 5.2 (0-10); NEUTROPHILS # (AUTO) 9.5 K/ul (2.0-6.9); NEUTROPHILS % (AUTO) 84.1; PLATELET COUNT 266 10^3/uL (140-440); RED BLOOD COUNT 3.53 10^6/ul (4.20-5.40); WHITE BLOOD COUNT 11.32 K/ul (4.6-10.2)
[2016-12-10 05:32] LABS: ALBUMIN 2.2 g/dL (3.4-5.0); ALBUMIN/GLOBULIN RATIO 0.61; ANION GAP 13.5; BILIRUBIN,TOTAL 0.39 mg/dL (0.00-1.20); BUN/CREATININE RATIO 16.8; CALCIUM 8.2 mg/dL (8.2-10.2); CREATININE 1.19 mg/dL (0.60-1.30); POTASSIUM 3.5 mmol/L (3.5-5.10); TOTAL PROTEIN 5.8 g/dL (5.8-8.1)
[2016-12-10] MEDS: PROTONIX PO SCH (05:55)
[2016-12-10] MEDS: CARAFATE PO SCH ×4 (05:55→20:51)
[2016-12-10] MEDS: ZANTAC PO SCH ×2 (05:55→17:48)
[2016-12-10] MEDS ORDERED: LOVENOX SUBCUT SCH (09:00)
[2016-12-10] MEDS ORDERED: ROCEPHIN 1 GM in SODIUM CHLORIDE 50 ML IV SCH (09:00)
[2016-12-10] MEDS ORDERED: NON-FORMULARY MEDICATION (Donepezil Hcl [Aricept] 5 MG) PO SCH ×11 (09:00)
[2016-12-10] MEDS ORDERED: NON-FORMULARY MEDICATION (Losartan/Hydrochlorothiazide [Losartan-Hctz 100-12.5 Mg Tab] 1 E PO SCH (09:00)
[2016-12-10] MEDS: COZAAR PO SCH (09:37)
[2016-12-10] MEDS: K-DUR PO SCH ×2 (09:37→17:22)
[2016-12-10] MEDS: ASPIRIN CHEWABLE PO SCH (09:37)
[2016-12-10] MEDS: CALCIUM 500 + VIT D 200 MG TABLET PO SCH ×2 (09:37→20:51)
[2016-12-10] MEDS: FERROUS SULFATE PO SCH (09:37)
[2016-12-10] MEDS: NORVASC PO SCH (09:37)
[2016-12-10] MEDS: ARICEPT PO SCH (09:38)
[2016-12-10] MEDS: COREG PO SCH ×2 (09:38→17:21)
[2016-12-10] MEDS: SODIUM CHLORIDE 1,000 ML IV SCH (09:38)
--- NOTE | 2016-12-10 11:21 | RS.PTINEVL ---
Subjective - Patient information Date of Evaluation: 12/10/16 Date of Arrival on Unit: 12/09/16 (swing bed) Admitted From:: In-House Transfer Usual Living Arrangement: Alone Living Arrangement Comments: Pt lives in a double wide trailer and has a few steps to enter her porch in [place]. Home Environment: Mobile Home Medical History: Hypertension Medical History Comments:: AMI, hiatal hernia LATEX ALLERGY?: No Surgical History: CABG Surgical History Comments:: cardiac stents Subjective Information/ Patient Comments:: pt admitted to acute care with diagnosis of acute renal failure, AFIB, dementia, MRI showed acute non hemorrhagic R frontal lobe infarct and mild cerebral atrophy. - Level of function Prior to this admission, the patient could do the following:: Independent ADL's , Independent Ambulation Abilities prior to this admission: pt worked at [employer] prior to admit Current Level of Function: Partially Dependent Current Equipment Used at Home: none Interventions - Objective Patient Orientation: Person, Place, Time, Situation Current Interventions: IV's, Telemetry Range of Motion - ROM Right Upper Extremity AROM: WFL's Left Upper Extremity AROM: WFL's Right Lower Extremity AROM: WFL's Left Lower Extremity AROM: WFL's Muscle Strength - Muscle Strength Right Upper Extremity Strength: Mild Weakness (LUE grossly 4-/5) Left Upper Extremity Strength: Mild Weakness (RUE 4-/5) Right Lower Extremity Strength: Mild Weakness (hip flex 4-/5, knee flex/ext 4/5 , ankle DF/P F4/5) Left Lower Extremity Strength: Mild Weakness (hip flex 4-/5, knee flex/ext 4/5, ankle DF/PF 4/5) Sensation - Sensation Right Upper Extremity Sensation: Intact/Normal Left Upper Extremity Sensation: Intact/Normal Right Lower Extremity Sensation: Intact/Normal Left Lower Extremity Sensation: Intact/Normal Balance - Sitting Balance and Reactions Static Sitting Balance: Good Dynamic Sitting Balance: Good - Standing Balance and Reactions Static Standing Balance: Fair Dynamic Standing Balance: Fair Standing Equilibrium Reactions: Delayed Left, Delayed Right Standing Protective Reactions: Delayed Left, Delayed Right - Comments Balance Assessment Comments: Tinetti score 16/24 Functional Mobility - Bed Mobility Rolling R/L: Independent Scooting: Independent Supine to Sit: CGA - Transfers Sit to Stand: CGA Stand to Sit: CGA - Safety Awareness Safety Awareness: Fair Ambulation - Ambulation Assistive Device Used: Rolling Walker Orthotic/Prosthetic Device: No Distance: 200ft Assistance needed with Ambulation: CGA Gait Deviations: Forward posture, Short stride Ambulation Comments: pt amb 100ft with rwx CGA , then amb 100ft without AD with CGA. pt with occasional deviation from path. Feel pt may benefit from trying straight cane. Factors Affecting Ambulation: Weakness, Cognitive Status Treatment time - Time with patient Total treatment time: 28 Patient Education - Education Patient Education: Home Safety, Activity Modification, Education of Plan of Care Teaching Recipient: Patient Teaching Methods: Discussion, Demonstration Assessment - Assessment Problem List:: Decreased level of function, Requires training/education, Decreased safety/Risk of falls, Weakness, Cognitive status limits abilities Rehab Potential: Good Further Therapy Indicated?: Yes Comments: Feel pt would benefit from skilled PT for strengthening BLE as well as dyn stand balance activities to improve functional mobility to be able to return home alone and return to prior activities. Short Term Goals GOAL #1: pt transfer sup to/from sit to/from stand independently Goal to be met by: 12/15/16 GOAL #2: pt amb with/without AAD 200ft with SBA with no loss of balance. Goal to be met by: 12/15/16 GOAL #3: pt demonstrate independence with rolling and scooting up in bed. Goal to be met by: 12/15/16 [facility] Goals GOAL #1: pt with improved dyn stand balance as noted by tinetti score of Goal to be met by: 12/20/16 GOAL #2: pt amb functional distances without AD independently with no LOB Goal to be met by: 12/20/16 GOAL #3: pt with improved strength BLE 4 to 4+/5 and indepndent with HEP Goal to be met by: 12/20/16 Plan Plan of Care: Therapeutic EX, Therapeutic Activity, Self-Care/Home Management Frequency of Treatment: 1-2 X day, as tolerated Duration of Treatment: 10 days Anticipated Discharge Destination: Home
[2016-12-10] MEDS: KEFLEX PO SCH ×2 (12:56→20:51)
[2016-12-10] MEDS: LIPITOR PO SCH (20:51)
[2016-12-10] MEDS: CELEXA PO SCH (20:51)
[2016-12-10] MEDS: NAMENDA PO SCH (20:51)
[2016-12-11] MEDS: SODIUM CHLORIDE 1,000 ML IV SCH (02:27)
[2016-12-11] MEDS: ZANTAC PO SCH ×2 (05:31→17:53)
[2016-12-11] MEDS: PROTONIX PO SCH (05:31)
[2016-12-11] MEDS: CARAFATE PO SCH ×4 (05:31→20:34)
[2016-12-11] MEDS: KEFLEX PO SCH ×3 (05:31→20:34)
[2016-12-11] MEDS: ELIQUIS PO SCH ×2 (08:57→20:35)
[2016-12-11] MEDS: K-DUR PO SCH ×2 (08:58→17:54)
[2016-12-11] MEDS: ARICEPT PO SCH (08:58)
[2016-12-11] MEDS: ASPIRIN CHEWABLE PO SCH (08:58)
[2016-12-11] MEDS: NORVASC PO SCH (08:58)
[2016-12-11] MEDS: CALCIUM 500 + VIT D 200 MG TABLET PO SCH ×2 (08:58→20:35)
[2016-12-11] MEDS: COREG PO SCH ×2 (08:58→17:54)
[2016-12-11] MEDS: COZAAR PO SCH (08:58)
[2016-12-11] MEDS: FERROUS SULFATE PO SCH (08:59)
--- NOTE | 2016-12-11 11:40 | PCM.PROG ---
Attending Provider: ATTENDING PROVIDER: Dr. ANA BARRY This patient is seen with Trinidad Heard, Nurse Practitioner. DATE OF SERVICE: 12/11/16 SUBJECTIVE: This 81 year old WHITE/ F was hospitalized 12/09/16. The patient is sitting in chair and is alert. She has been up with PT. She is eating good. She is having epigastric pain due to chronic hiatal hernia. REVIEW OF SYSTEMS: CONSTITUTIONAL: No night sweats. No fatigue, malaise, lethargy. No fever or chills. HEENT: Eyes: No visual changes. No eye pain. No eye discharge. ENT: No runny nose. No epistaxis. No sinus pain. No odynophagia. No congestion. RESPIRATORY: No cough, no congestion. No hemoptysis. No shortness of breath. CARDIOVASCULAR: No angina symptoms. No CHF symptoms. No atypical chest pain for CAD. No palpitations. No orthopnea.. GASTROINTESTINAL: Abdominal pain. No nausea or vomiting. No diarrhea or constipation. No hematemesis. No hematochezia. GENITOURINARY: No urgency. No frequency. No dysuria. No hematuria. No obstructive symptoms. No discharge. No pain. No significant abnormal bleeding. MUSCULOSKELETAL: No musculoskeletal pain; no joint swelling. NEUROLOGICAL: Awake, alert, with bouts of confusion. No headache. No neck pain. No syncope. No seizures. No dizziness. PSYCHIATRIC: Not anxious. No depression. No suicidal thoughts. No homicidal thoughts. SKIN: No rash. No lesions. No wounds. ENDOCRINE: No unexplained weight loss. No weight gain. HEMATOLOGIC/LYMPHATIC: No anemia. No purpura. No petechiae. No prolonged or excessive bleeding. No palpable lymph nodes. PHYSICAL EXAMINATION: GENERAL: The patient is awake, alert with bouts of confusion, oriented to person and place, sitting in chair in no distress. VITAL SIGNS: Temperature 98.1 F, Pulse 77, Respiratory Rate 18, BP 126/75, Pulse Ox 98% HEENT: Head normocephalic, atraumatic. Eyes: Extraocular muscles are intact. Pupils are equal, round and reactive to light and accommodation. Ears: No lesions. Nose appeared normal. Throat: No exudate or erythema. NECK: Supple. No JVD, no carotid bruit. No lymphadenopathy or thyromegaly. LUNGS: Clear to auscultation. Percussion note normal. Chest symmetrical. HEART: Irregular heart rate consistent with atrial fibrillation. S1, S2, no S3. No murmurs. No cyanosis or clubbing. No ascites. Pulses: Dorsalis pedis and posterior tibial pulses +1 to +2 both sides. ABDOMEN: Soft. Non-tender. Bowel sounds active. No CVA tenderness. No mass felt. EXTREMITIES: No edema. Full range of motion of all extremities, equal. NEUROLOGIC: No focal deficit. Cranial nerves II through XII are grossly intact. No headache, no double vision or headache. SKIN: Not dry. Intact. Turgor-normal. LYMPHATIC: No palpable lymph nodes/no lymphedema. MUSCULOSKELETAL: Normal joints with no swelling. Muscle tone is normal. LAB REVIEW: 12/10/16 05:09 12/10/16 05:09 ASSESSMENT: 1. New onset atrial fib 2. Multiple CVA's 3. Generalized weakness 4. Chronic kidney disease PLAN: 1. Eliquis 2.5 mg b.i.d. due to fluctuating creatinine and age 2. The risk of Chelo blood thinners discussed regarding GI bleed and intracranial bleeding. Do not take other NSAIDS along with Eliquis 3. Risk of complications due to atrial fib discussed 4. Stop Lovenox Plan and coordination of the patient's care discussed in the presence of Flour Inspector and nurse. CONDITION: Stable SCRIBED BY: Ruben POSADA scribed while in presence of service performed by Dr. Barry/Trinidad Heard APRN on 12/11/16 (0801)
--- NOTE | 2016-12-11 15:17 | CM.DICTOOL ---
ADMISSION: 12/09/16 15:32 DISCHARGE: 12/09/16 DATE OF SERVICE: 12/09/16 FINAL DIAGNOSIS NEW ONSET A-FIB UTI, E-COLI ORGANISM DEHYDRATION, ACUTE RENAL FAILURE HYPOKALEMIA, RESOLVED ANEMIA CAD/MA S/P CABG HTN GERD HIATAL HERNIA DIVERTICULITIS RENAL STENT LAST VITALS Temp Pulse Resp BP Pulse Ox 98.1 F 77 18 126/75 98 12/11/16 05:25 12/11/16 05:25 12/11/16 05:25 12/11/16 05:25 12/11/16 05:25 ACTIVE HOSPITAL MEDICATIONS Amlodipine Besylate (Norvasc) 5 mg PO DAILY [facility] Last Admin: 12/11/16 08:58 Dose: 5 mg Apixaban (Eliquis) 2.5 mg PO BID [facility] Last Admin: 12/11/16 08:57 Dose: 2.5 mg Aspirin (Aspirin Chewable) 81 mg PO DAILYWM [facility] Last Admin: 12/11/16 08:58 Dose: 81 mg Atorvastatin Calcium (Lipitor) 10 mg PO BEDTIME [facility] Last Admin: 12/10/16 20:51 Dose: 10 mg Calcium/Vitamin D (Calcium 500 + Vit D 200 Mg Tablet) 1 each PO BID [facility] Last Admin: 12/11/16 08:58 Dose: 1 each Carvedilol (Coreg) 12.5 mg PO BIDWM [facility] Last Admin: 12/11/16 08:58 Dose: 12.5 mg Cephalexin (Keflex) 500 mg PO Q8HR [facility] Last Admin: 12/11/16 12:44 Dose: 500 mg Citalopram Hydrobromide (Celexa) 20 mg PO BEDTIME [facility] Last Admin: 12/10/16 20:51 Dose: 20 mg Donepezil HCl (Aricept) 5 mg PO DAILY [facility] Last Admin: 12/11/16 08:58 Dose: 5 mg Ferrous Sulfate (Ferrous Sulfate) 324 mg PO DAILY [facility] Last Admin: 12/11/16 08:59 Dose: 324 mg Sodium Chloride (Sodium Chloride) 1,000 mls @ 40 mls/hr IV .Q25H [facility] Last Admin: 12/11/16 02:27 Dose: 40 mls/hr Losartan Potassium (Cozaar) 100 mg PO DAILY [facility] Last Admin: 12/11/16 08:58 Dose: 100 mg Memantine (Namenda) 10 mg PO BEDTIME [facility] Last Admin: 12/10/16 20:51 Dose: 10 mg Pantoprazole Sodium (Protonix) 40 mg PO QDAC [facility] Last Admin: 12/11/16 05:31 Dose: 40 mg Potassium Chloride (K-Dur) 20 meq PO BIDWM [facility] Last Admin: 12/11/16 08:58 Dose: 20 meq Ranitidine HCl (Zantac) 150 mg PO BIDAC [facility] Last Admin: 12/11/16 05:31 Dose: 150 mg Sucralfate (Carafate) 1 gm PO ACHS [facility] Last Admin: 12/11/16 12:44 Dose: 1 gm ALLERGIES Sulfa (Sulfonamide Antibiotics) Allergy (Verified 11/12/15 16:07) Itching NEW PRESCRIPTIONS: CONTINUE THE SAME MEDICATIONS SMOKING: NONSMOKER DISEASE SPECIFIC EDUCATION: A-FIB UTI, E-COLI SWING BED PROGRAM IV ANTIBIOTICS FOR THE UTI LAB REVIEW: 12/10/16 05:09 12/10/16 05:09 PLAN: DISCHARGE FROM [facility] TO BE ADMITTED TO SWING BED CONTINUE THE SAME ORDERS AND MEDICATIONS PT/OT EVALUATION SUMMARY: THE PATIENT IS ALERT AND ORIENTED X3. SHE OCCASIONALLY BECOMES FORGETFUL/ CONFUSED BUT IS EASILY RE-ORIENTED. CURRENTLY SHE RESIDES AT HOME ALONE. HER DAUGHTER RESIDES CLOSE BY AND IS SUPPORTIVE OF HER NEEDS WHEN NECESSARY. SHE PLANS TO REQUEST HER HELP AT DISCHARGE. SHE HAS NOT BEEN REQUIRED TO USE ASSISTIVE DEVICES FOR AMBULATION AND DOES NOT HAVE ANY HOME HEALTH OR HOMEMAKING SERVICES. HER SKIN TURGOR IS INTACT AND WITHOUT DECUBITUS ULCERS. WE HAVE DISCUSSED SWING BED ADMISSION AND THE NEED TO CONTINUE IV ANTIBIOTICS FOR HER E-COLI UTI. SHE IS AGREEABLE FOR ADMISSION TODAY. WE WILL ALSO REQUEST PT/OT TO EVALUATE FOR POSSIBLE SERVICES. CURRENT CODE STATUS: FULL CODE WILFRED UMANZOR APRN ANA BARRY M.D.
[2016-12-11] MEDS: LIPITOR PO SCH (20:35)
[2016-12-11] MEDS: NAMENDA PO SCH (20:35)
[2016-12-11] MEDS: CELEXA PO SCH (20:39)
[2016-12-12] MEDS: SODIUM CHLORIDE 1,000 ML IV SCH ×2 (03:49→20:22)
[2016-12-12] MEDS: PROTONIX PO SCH (05:41)
[2016-12-12] MEDS: CARAFATE PO SCH ×4 (05:41→20:38)
[2016-12-12] MEDS: ZANTAC PO SCH ×2 (05:41→16:47)
[2016-12-12] MEDS: KEFLEX PO SCH ×3 (05:42→20:38)
[2016-12-12] MEDS: NORVASC PO SCH (08:51)
[2016-12-12] MEDS: K-DUR PO SCH ×2 (08:52→16:47)
[2016-12-12] MEDS: CALCIUM 500 + VIT D 200 MG TABLET PO SCH ×2 (08:52→20:36)
[2016-12-12] MEDS: COREG PO SCH ×2 (08:52→16:47)
[2016-12-12] MEDS: ARICEPT PO SCH (08:52)
[2016-12-12] MEDS: FERROUS SULFATE PO SCH (08:52)
[2016-12-12] MEDS: ELIQUIS PO SCH ×2 (08:52→20:37)
[2016-12-12] MEDS: COZAAR PO SCH (08:52)
[2016-12-12] MEDS: ASPIRIN CHEWABLE PO SCH (08:52)
--- NOTE | 2016-12-12 12:30 | DI ---
EXAM: Two-view chest HISTORY: Shortness of breath TECHNIQUE: Frontal and lateral views of the chest were obtained. Comparison 12/04/2016. FINDINGS: The heart is stable size. Midline sternotomy wires are seen. There is blunting of the co stophrenic angles bilaterally. The pulmonary vasculature appears to be diffusely prominent. There i s no pleural separation. IMPRESSION: Stable cardiomegaly. Stable appearance of interstitial edema. Interval development of bilateral small pleural effusions.
[2016-12-12] MEDS: CELEXA PO SCH (20:36)
[2016-12-12] MEDS: LIPITOR PO SCH (20:37)
[2016-12-12] MEDS: NAMENDA PO SCH (20:38)
[2016-12-13 05:07] LABS: BASOPHILS # (AUTO) 0.1 K/uL (0-0.2); BASOPHILS % (AUTO) 0.7 % (0.0-3.0); EOSINOPHILS # (AUTO) 0.1 K/ul (0.0-0.7); EOSINOPHILS % (AUTO) 0.8 % (0.0-7.0); HEMATOCRIT 30.6 % (37.0-47.0); HEMOGLOBIN 10.3 g/dl (12.0-16.0); IMMATURE GRANULOCYTE % (AUTO) 0.4 % (0.0-5.0); LYMPHOCYTES # (AUTO) 1.1 K/uL (0.60-3.4); LYMPHOCYTES % (AUTO) 11.1 (10.0-50.0); MEAN CORPUSCULAR HEMOGLOBIN 29.9 pg (27.0-31.0); MEAN CORPUSCULAR HGB CONC 33.7 (31.8-35.4); MEAN CORPUSCULAR VOLUME 88.7 fl (81.0-99.0); MONOCYTES # (AUTO) 0.5 K/uL (0.4-2.0); MONOCYTES % (AUTO) 5.5 (0-10); NEUTROPHILS # (AUTO) 7.9 K/ul (2.0-6.9); NEUTROPHILS % (AUTO) 81.5; PLATELET COUNT 275 10^3/uL (140-440); RED BLOOD COUNT 3.45 10^6/ul (4.20-5.40); WHITE BLOOD COUNT 9.65 K/ul (4.6-10.2)
[2016-12-13 05:29] LABS: ALBUMIN 2.3 g/dL (3.4-5.0); ALBUMIN/GLOBULIN RATIO 0.68; ANION GAP 11.5; BILIRUBIN,TOTAL 0.5 mg/dL (0.00-1.20); CALCIUM 8.3 mg/dL (8.2-10.2); POTASSIUM 3.5 mmol/L (3.5-5.10); TOTAL PROTEIN 5.7 g/dL (5.8-8.1)
[2016-12-13] MEDS: PROTONIX PO SCH (05:51)
[2016-12-13] MEDS: ZANTAC PO SCH ×2 (05:51→18:27)
[2016-12-13] MEDS: CARAFATE PO SCH ×4 (05:51→21:21)
[2016-12-13] MEDS: KEFLEX PO SCH ×3 (05:51→21:21)
[2016-12-13] MEDS: COZAAR PO SCH (09:33)
[2016-12-13] MEDS: ASPIRIN CHEWABLE PO SCH (09:33)
[2016-12-13] MEDS: COREG PO SCH ×2 (09:33→18:27)
[2016-12-13] MEDS: CALCIUM 500 + VIT D 200 MG TABLET PO SCH ×2 (09:33→21:21)
[2016-12-13] MEDS: K-DUR PO SCH ×2 (09:33→18:27)
[2016-12-13] MEDS: FERROUS SULFATE PO SCH (09:34)
[2016-12-13] MEDS: NORVASC PO SCH ×2 (09:34→21:21)
[2016-12-13] MEDS: ELIQUIS PO SCH ×2 (09:35→21:21)
[2016-12-13] MEDS: ARICEPT PO SCH (09:36)
[2016-12-13] MEDS: NAMENDA PO SCH (21:21)
[2016-12-13] MEDS: LIPITOR PO SCH (21:21)
[2016-12-13] MEDS: CELEXA PO SCH (21:21)
[2016-12-14] MEDS: KEFLEX PO SCH ×3 (05:59→20:08)
[2016-12-14] MEDS: CARAFATE PO SCH ×4 (05:59→20:08)
[2016-12-14] MEDS: PROTONIX PO SCH (05:59)
[2016-12-14] MEDS: ZANTAC PO SCH ×2 (05:59→16:55)
[2016-12-14] MEDS: CALCIUM 500 + VIT D 200 MG TABLET PO SCH ×2 (08:06→20:08)
[2016-12-14] MEDS: ASPIRIN CHEWABLE PO SCH (08:06)
[2016-12-14] MEDS: NORVASC PO SCH ×2 (08:07→20:08)
[2016-12-14] MEDS: COZAAR PO SCH (08:07)
[2016-12-14] MEDS: K-DUR PO SCH ×2 (08:07→16:55)
[2016-12-14] MEDS: ARICEPT PO SCH (08:07)
[2016-12-14] MEDS: FERROUS SULFATE PO SCH (08:07)
[2016-12-14] MEDS: COREG PO SCH ×2 (08:07→16:55)
[2016-12-14] MEDS: ELIQUIS PO SCH ×2 (08:07→20:08)
[2016-12-14] MEDS: LIPITOR PO SCH (20:08)
[2016-12-14] MEDS: NAMENDA PO SCH (20:08)
[2016-12-14] MEDS: CELEXA PO SCH (20:08)
[2016-12-15 06:20] VITALS: BP 116/68; TEMP 98
[2016-12-15] MEDS: ZANTAC PO SCH (06:20)
[2016-12-15] MEDS: PROTONIX PO SCH (06:20)
[2016-12-15] MEDS: CARAFATE PO SCH ×2 (06:20→11:00)
[2016-12-15] MEDS: KEFLEX PO SCH (06:20)
[2016-12-15] MEDS ORDERED: DECADRON 4 MG/ML SDV IM STA (08:06)
[2016-12-15] MEDS: ELIQUIS PO SCH (08:51)
[2016-12-15] MEDS: CALCIUM 500 + VIT D 200 MG TABLET PO SCH (08:51)
[2016-12-15] MEDS: ASPIRIN CHEWABLE PO SCH (08:51)
[2016-12-15] MEDS: K-DUR PO SCH (08:51)
[2016-12-15] MEDS: FERROUS SULFATE PO SCH (08:51)
[2016-12-15] MEDS: NORVASC PO SCH (08:52)
[2016-12-15] MEDS: COREG PO SCH (08:52)
[2016-12-15] MEDS: COZAAR PO SCH (08:52)
[2016-12-15] MEDS: ARICEPT PO SCH (08:52)
--- NOTE | 2016-12-15 11:15 | CM.DICTOOL ---
ADMISSION: 12/09/16 15:32 DISCHARGE: 12/15/16 SWING BED DISCHARGE DATE OF SERVICE: 12/15/16 FINAL DIAGNOSIS NEW ONSET A-FIB UTI, E-COLI DEHYDRATION ACUTE RENAL FAILURE HYPOKALEMIA, RESOLVED CAD/AR CARDIOMEGALY, STABLE MULTIPLE CVA CAROTID STENOSIS HTN DYSLIPIDEMIA CHRONIC KIDNEY DISEASE ANEMIA DM, TYPE 2 GERD LARGE HIATAL HERNIA DIVERTICULITIS BY HISTORY ANXIETY/DEPRESSION DEMENTIA CABG (DR. ACKERMAN, 1993) CARDIAC STENTS X 2 (MARIA L, 2010) RENAL STENT LEFT BREAST LUMPECTOMY, 1982 LAST VITALS Temp Pulse Resp BP Pulse Ox 98.0 F 71 20 116/68 92 L 12/15/16 06:00 12/15/16 06:00 12/15/16 06:00 12/15/16 06:00 12/15/16 06:00 ACTIVE MEDICATIONS Amlodipine Besylate (Norvasc) 5 mg PO BID DAILY [facility] (NEW) Last Admin: 12/15/16 08:52 AND 20:08 Dose: 5 mg Apixaban (Eliquis) 2.5 mg PO BID [facility] ([facility]) Last Admin: 12/15/16 08:51 Dose: 2.5 mg Aspirin (Aspirin Chewable) 81 mg PO DAILYWM [facility] Last Admin: 12/15/16 08:51 Dose: 81 mg Atorvastatin Calcium (Lipitor) 10 mg PO BEDTIME [facility] Last Admin: 12/14/16 20:08 Dose: 10 mg Calcium/Vitamin D (Calcium 500 + Vit D 200 Mg Tablet) 1 each PO BID [facility] Last Admin: 12/15/16 08:51 Dose: 1 each Carvedilol (Coreg) 12.5 mg PO BIDWM [facility] Last Admin: 12/15/16 08:52 Dose: 12.5 mg Cephalexin (Keflex) 500 mg PO Q8HR [facility] X 3 DAYS (NEW) Last Admin: 12/15/16 06:20 Dose: 500 mg Citalopram Hydrobromide (Celexa) 20 mg PO BEDTIME [facility] Last Admin: 12/14/16 20:08 Dose: 20 mg Donepezil HCl (Aricept) 5 mg PO DAILY [facility] Last Admin: 12/15/16 08:52 Dose: 5 mg Ferrous Sulfate (Ferrous Sulfate) 324 mg PO DAILY [facility] Last Admin: 12/15/16 08:51 Dose: 324 mg Losartan Potassium/Hydrochlorothiazide 100/12.5 mg PO DAILY [facility] Last Admin: 12/15/16 08:52 Dose: 100 mg (HCTZ added back at discharge) Mag Carb/Al Hydrox/Aginic AC (Gaviscon Liquid) 355 ml PO QID PRN Memantine (Namenda) 10 mg PO BEDTIME [facility] Last Admin: 12/14/16 20:08 Dose: 10 mg Pantoprazole Sodium (Protonix) 40 mg PO QDAC [facility] Last Admin: 12/15/16 06:20 Dose: 40 mg Potassium Chloride (K-Dur) 10 meq PO DAILY WM [facility] Last Admin: 12/15/16 08:51 Dose: 20 meq BID Ranitidine HCl (Zantac) 150 mg PO BIDAC [facility] Last Admin: 12/15/16 06:20 Dose: 150 mg Sucralfate (Carafate) 1 gm PO ACHS [facility] Last Admin: 12/15/16 06:20 Dose: 1 gm ALLERGIES Sulfa (Sulfonamide Antibiotics) Allergy (Verified 11/12/15 16:07) Itching NEW PRESCRIPTIONS: AMLODIPINE BESYLATE (NORVASC) 5 MG, TAKE ONE TABLET BY MOUTH TWICE DAILY ELIQUIS (APIXABAN) 2.5 MG, TAKE ONE TABLET BY MOUTH TWICE DAILY KEFLEX 500 MG, TAKE ONE CAPSULE BY MOUTH EVERY 8 HOURS FOR 3 DAYS ONLY INCREASE YOUR POTASSIUM (K-DUR) TO 20 MEQ BY MOUTH DAILY SMOKING: NONSMOKER DISEASE SPECIFIC EDUCATION: ATRIAL FIBRILLATION ACUTE RENAL FAILURE DEHYDRATION WEAKNESS UTI, E-COLI ELIQUIS BENEFITS AND RISKS HOME MEDICATIONS NEW PRESCRIPTIONS FOLLOW UP LAB REVIEW: 12/13/16 05:03 12/13/16 05:03 PLAN: DISCHARGE HOME TODAY RETURN TO SEE DR. BARRY IN ONE WEEK. PLEASE PHONE HIS OFFICE TO SCHEDULE YOUR FOLLOW UP APPOINTMENT. ([phone]) [facility], PHYSICAL THERAPY AND OCCUPATIONAL THERAPY WILL BE ARRANGED TO COME TO YOUR HOME. SOMEONE WILL CALL YOU TO SCHEDULE VISITS. RESUME YOUR HOME MEDICATIONS PER LIST PROVIDED BY THE NURSING STAFF PLEASE NOTE THE INCREASE IN YOUR POTASSIUM FROM 10 MEQ TO 20 MEQ BY MOUTH DAILY NEW PRESCRIPTIONS: AMLODIPINE BESYLATE (NORVASC) 5 MG, TAKE ONE TABLET BY MOUTH TWICE DAILY ELIQUIS (APIXABAN) 2.5 MG, TAKE ONE TABLET BY MOUTH TWICE DAILY KEFLEX 500 MG, TAKE ONE CAPSULE BY MOUTH EVERY 8 HOURS FOR 3 DAYS ONLY K-DUR 20 MEQ, TAKE ONE TABLET BY MOUTH DAILY DIET: HEALTHY HEART ACTIVITY: GET PLENTY OF REST AT HOME. GRADUALLY INCREASE YOUR ACTIVITY LEVEL ACCORDING TO YOUR TOLERATION. SUMMARY: THE PATIENT IS ALERT AND ORIENTED X3. SHE IS FORGETFUL AT TIMES BUT IS ABLE TO RECALL WITH REMINDERS. SHE CURRENTLY RESIDES AT HOME ALONE. SHE DESIRES TO RETURN THERE AT DISCHARGE. HER SIGNIFICANT OTHER PLANS TO STAY WITH HER TO ASSIST. SHE WILL ALSO HAVE [facility] FOR GENERAL ASSESSMENT, MEDICATION MANAGEMENT AND PHYSICAL THERAPY/OCCUPATIONAL THERAPY TO CONTINUE HER REHAB IN THE HOME. SHE IS AGREEABLE FOR THESE SERVICES. HER SKIN TURGOR IS INTACT AND SHOWS GOOD HYDRATION. SHE HAS NO DECUBITUS ULCERS PRESENT AT DISCHARGE. SHE IS AWARE AND AGREEABLE FOR TODAY'S DISCHARGE PLANS. CURRENT CODE STATUS: FULL CODE WILFRED UMANZOR APRN ANA BARRY M.D.
--- NOTE | 2016-12-15 11:50 | PCM.PROG ---
Attending Provider: ATTENDING PROVIDER: Dr. ANA BARRY This patient is seen with Trinidad Heard, Nurse Practitioner. DATE OF SERVICE: 12/15/16 SUBJECTIVE: This 81 year old WHITE/ F was hospitalized 12/09/16. The patient is alert, lying in bed. She is ready to go home. She has been doing well, up and about walking. Her field reporter will be staying with her at home. REVIEW OF SYSTEMS: CONSTITUTIONAL: No night sweats. No fatigue, malaise, lethargy. No fever or chills. HEENT: Eyes: No visual changes. No eye pain. No eye discharge. ENT: No runny nose. No epistaxis. No sinus pain. No odynophagia. No congestion. RESPIRATORY: No cough, no congestion. No hemoptysis. No shortness of breath. CARDIOVASCULAR: No angina symptoms. No CHF symptoms. No atypical chest pain for CAD. No palpitations. No orthopnea.. GASTROINTESTINAL: No abdominal pain. No nausea or vomiting. No diarrhea or constipation. No hematemesis. No hematochezia. GENITOURINARY: No urgency. No frequency. No dysuria. No hematuria. No obstructive symptoms. No discharge. No pain. No significant abnormal bleeding. MUSCULOSKELETAL: Leg weakness. NEUROLOGICAL: Awake, alert, oriented to time, place and person. No headache. No neck pain. No syncope. No seizures. No dizziness. PSYCHIATRIC: Not anxious. No depression. No suicidal thoughts. No homicidal thoughts. SKIN: No rash. No lesions. No wounds. ENDOCRINE: No unexplained weight loss. No weight gain. HEMATOLOGIC/LYMPHATIC: No anemia. No purpura. No petechiae. No prolonged or excessive bleeding. No palpable lymph nodes. PHYSICAL EXAMINATION: GENERAL: The patient is awake, alert and oriented, lying in bed in no distress. VITAL SIGNS: Temperature 98.0 F, Pulse 71, Respiratory Rate 20, BP 116/68, Pulse Ox 92% HEENT: Head normocephalic, atraumatic. Eyes: Extraocular muscles are intact. Pupils are equal, round and reactive to light and accommodation. Ears: No lesions. Nose appeared normal. Throat: No exudate or erythema. NECK: Supple. No JVD, no carotid bruit. No lymphadenopathy or thyromegaly. LUNGS: Diminished breath sounds bilaterally with faint expiratory wheeze on the right. Percussion note normal. Chest symmetrical. HEART: Irregular heart rate. S1, S2, no S3. No murmurs. No cyanosis or clubbing. No ascites. Pulses: Dorsalis pedis and posterior tibial pulses +1 to +2 both sides. ABDOMEN: Soft. Non-tender. Bowel sounds active. No CVA tenderness. No mass felt. EXTREMITIES: No edema. Full range of motion of all extremities, equal. NEUROLOGIC: No focal deficit. Cranial nerves II through XII are grossly intact. No headache, no double vision or headache. SKIN: Not dry. Intact. Turgor-normal. LYMPHATIC: No palpable lymph nodes/no lymphedema. MUSCULOSKELETAL: Normal joints with no swelling. Muscle tone is normal. LAB REVIEW: 12/13/16 05:03 12/13/16 05:03 ASSESSMENT: 1. New onset atrial fib 2. Multiple CVA's 3. Generalized weakness 4. Chronic kidney disease 5. UTI PLAN: 1. 1 cc Decadron 2. Discharge home 3. Continue Keflex 500 mg t.i.d. times three days 4. Restart Losartan/HCTZ 5. Continue Norvasc 6. Eliquis 2.5 7. 3-step 02 before discharge 8. Continue PT 9. Home Health for nursing services, PT/OT. The patient is in agreement. Plan and coordination of the patient's care discussed in the presence of Cut Pressman and nurse. CONDITION: Stable SCRIBED BY: Edson POSADAist scribed while in presence of service performed by Dr. Barry/Trinidad Heard APRN on 12/15/16 ([id number])
--- NOTE | 2016-12-16 13:49 | PN ---
DATE OF SERVICE: 12/12/16 SUBJECTIVE: 81 year old white female in the swing bed for physical therapy and rehab. The patient is acute right sided frontal infarct and no neurological deficit so far. Also has new onset atrial fibrillation. The patient has severe hypokalemia which has resolved. The kidney functions are better, creatinine is 1.1 and BUN 20. The patient had acute renal failure from dehydration. PHYSICAL EXAMINATION: HEENT: Head normocephalic, atraumatic. Eyes: Extraocular muscles are intact. Pupils are equal, round and reactive to light and accommodation. Ears: No lesions. Nose appeared normal. Throat: No exudate or erythema. NECK: Supple. No JVD, no carotid bruit. No lymphadenopathy or thyromegaly. LUNGS: Decreased breath sounds but clear to auscultation. Percussion note normal. Chest symmetrical. HEART: S1, S2, no S3. No murmurs. No cyanosis or clubbing. No ascites. Pulses: Dorsalis pedis and posterior tibial pulses +1 to +2 both sides. ABDOMEN: Soft. Nontender. Bowel sounds active. No CVA tenderness. No mass felt. EXTREMITIES: No edema. Full range of motion of all extremities, equal. NEUROLOGIC: No focal deficit. Cranial nerves II through XII are grossly intact. No headache, no double vision or headache. SKIN: Not dry. Intact. Turgor - normal. LYMPHATIC: No palpable lymph nodes/no lymphedema. MUSCULOSKELETAL: Normal joints with no swelling. Muscle tone is normal. PLAN: 1. The patient is on Eliquis 2.5mg twice a day and may increase the dose to 5mg PO twice a day The patient was seen and examined with Nurse Practitioner TIME SPENT: More than 30 minutes. Plan and coordination of the patient's care discussed in the presence of nurse. KARYN
--- NOTE | 2016-12-16 13:57 | PN ---
DATE OF SERVICE: 12/14/16 SUBJECTIVE: 81 year old white female hospitalized and now she is on the swing with new onset atrial fibrillation and acute renal failure which has practically resolved. Her creatinine is now 1 and BUN 15. It was done yesterday. Also she had acute frontal infarct right sided with no neurological deficit. Her severe hypokalemia has resolved. REVIEW OF SYSTEMS: CONSTITUTIONAL: No night sweats. No fatigue, malaise, lethargy. No fever or chills. Alert but disoriented to time but oriented to person and place. Her friend is in the room. HEENT: Eyes: No visual changes. No eye pain. No eye discharge. ENT: No runny nose. No epistaxis. No sinus pain. No sore throat. No odynophagia. No congestion. RESPIRATORY: No cough, no congestion. No hemoptysis. No shortness of breath. CARDIOVASCULAR: No angina symptoms. No CHF symptoms. No atypical chest pain for CAD. No palpitations. No orthopnea. No PND. GASTROINTESTINAL: No abdominal pain. No nausea or vomiting. No diarrhea or constipation. No hematemesis. No hematochezia. GENITOURINARY: No urgency. No frequency. No dysuria. No hematuria. No obstructive symptoms. No discharge. No pain. No significant abnormal bleeding. MUSCULOSKELETAL: No musculoskeletal pain; no joint swelling. NEUROLOGICAL: No headache. No neck pain. No syncope. No seizures. No dizziness. PSYCHIATRIC: Not anxious. No depression. No suicidal thoughts. No homicidal thoughts. SKIN: No rash. No lesions. No wounds. ENDOCRINE: No unexplained weight loss. No weight gain. HEMATOLOGIC/LYMPHATIC: No anemia. No purpura. No petechiae. No prolonged or excessive bleeding. No palpable lymph nodes. PHYSICAL EXAMINATION: GENERAL: The patient is oriented to place and person, temperature 97, pulse 60 , respiratory rate 16, blood pressure 110/74 and pulse ox 94%. HEENT: Head normocephalic, atraumatic. Eyes: Extraocular muscles are intact. Pupils are equal, round and reactive to light and accommodation. Ears: No lesions. Nose appeared normal. Throat: No exudate or erythema. NECK: Supple. No JVD, no carotid bruit. No lymphadenopathy or thyromegaly. LUNGS: Decreased breath sounds but clear to auscultation. Percussion note normal. Chest symmetrical. HEART: S1, S2, no S3. No murmurs. No cyanosis or clubbing. No ascites. Pulses: Dorsalis pedis and posterior tibial pulses +1 to +2 both sides. ABDOMEN: Soft. Nontender. Bowel sounds active. No CVA tenderness. No mass felt. EXTREMITIES: No edema. Full range of motion of all extremities, equal. NEUROLOGIC: No focal deficit. Cranial nerves II through XII are grossly intact. No headache, no double vision or headache. SKIN: Not dry. Intact. Turgor - normal. LYMPHATIC: No palpable lymph nodes/no lymphedema. MUSCULOSKELETAL: Normal joints with no swelling. Muscle tone is normal. LABS: Hgb 10.3, hct 30, WBC 9,600 normal differential, creatinine 1, BUN 15, potassium 3.5. ASSESSMENT: 1. New onset atrial fibrillation PLAN: 1. The patient is on Eliquis 2.5mg twice a day and will increase it to 5mg twice a day. The patient is already on Aspirin also. 2. Continue the rest of the medication. 3. The patient is on Keflex for UTI CONDITION: Stable. TIME SPENT: More than 30 minutes. Plan and coordination of the patient's care discussed in the presence of nurse. KARYN
--- NOTE | 2016-12-16 14:05 | PN ---
DATE OF SERVICE: 12/15/16 SUBJECTIVE: 81 year old white female hospitalized with multiple medical problems. Now she has atrial fibrillation for which she is being treated with Eliquis. She was on Keflex for urinary tract infection and also had acute right frontal lobe infarct with no neurological deficit. She had acute renal failure with renal azotemia which has completely resolved. PHYSICAL EXAMINATION: HEENT: Head normocephalic, atraumatic. Eyes: Extraocular muscles are intact. Pupils are equal, round and reactive to light and accommodation. Ears: No lesions. Nose appeared normal. Throat: No exudate or erythema. NECK: Supple. No JVD, no carotid bruit. No lymphadenopathy or thyromegaly. LUNGS: Decreased breath sounds but clear to auscultation. Percussion note normal. Chest symmetrical. HEART: S1, S2, no S3. No murmurs. No cyanosis or clubbing. No ascites. Pulses: Dorsalis pedis and posterior tibial pulses +1 to +2 both sides. ABDOMEN: Soft. Nontender. Bowel sounds active. No CVA tenderness. No mass felt. EXTREMITIES: No edema. Full range of motion of all extremities, equal. NEUROLOGIC: No focal deficit. Cranial nerves II through XII are grossly intact. No headache, no double vision or headache. SKIN: Not dry. Intact. Turgor - normal. LYMPHATIC: No palpable lymph nodes/no lymphedema. MUSCULOSKELETAL: Normal joints with no swelling. Muscle tone is normal. ASSESSMENT: 1. All the medical problems including renal failure and UTI are under control PLAN: 1. To be discharged on Keflex and Eliquis. 2. Side effects of Eliquis discussed with the family like GI bleed and intracranial bleed. Advised not to mix it with nonsteroid anti-inflammatory CONDITION: Stable. TIME SPENT: More than 30 minutes. Plan and coordination of the patient's care discussed in the presence of nurse. KARYN
--- NOTE | 2016-12-16 14:06 | PN ---
12/09/16: Level 5 12/10/16: Extensive 12/11/16: Extensive 12/12/16: Intermediate 12/13/16: Intermediate 12/14/16: Intermediate 12/15/16: D as in discharge MTDD
--- NOTE | 2016-12-18 08:07 | PN ---
DATE OF SERVICE: 12/13/16 SUBJECTIVE: 81 Year old white female hospitalized with new onset atrial fibrillation and multiple medical problems like weakness. The patient had an acute right frontal stroke with no neurological deficit. She was in acute renal failure on admission now her kidney functions are practically normal. Hypokalemia has practically has resolved. Her appetite has improved and her mental status has improved but she is still confused most of the time. She is oriented to person and place. The daughter is present. REVIEW OF SYSTEMS: CONSTITUTIONAL: No night sweats. No fatigue, malaise, lethargy. No fever or chills. HEENT: Eyes: No visual changes. No eye pain. No eye discharge. ENT: No runny nose. No epistaxis. No sinus pain. No sore throat. No odynophagia. No congestion. RESPIRATORY: No cough, no congestion. No hemoptysis. No shortness of breath. CARDIOVASCULAR: No angina symptoms. No CHF symptoms. No atypical chest pain for CAD. No palpitations. No orthopnea. No PND. GASTROINTESTINAL: No abdominal pain. No nausea or vomiting. No diarrhea or constipation. No hematemesis. No hematochezia. GENITOURINARY: No urgency. No frequency. No dysuria. No hematuria. No obstructive symptoms. No discharge. No pain. No significant abnormal bleeding. MUSCULOSKELETAL: No musculoskeletal pain; no joint swelling. NEUROLOGICAL: No headache. No neck pain. No syncope. No seizures. No dizziness. PSYCHIATRIC: Not anxious. No depression. No suicidal thoughts. No homicidal thoughts. SKIN: No rash. No lesions. No wounds. ENDOCRINE: No unexplained weight loss. No weight gain. HEMATOLOGIC/LYMPHATIC: No anemia. No purpura. No petechiae. No prolonged or excessive bleeding. No palpable lymph nodes. PHYSICAL EXAMINATION: VITAL SIGNS:Temperature 97, pulse 77, respiratory rate 20, blood pressure 150/ 85 and pulse ox 90%. HEENT: Head normocephalic, atraumatic. Eyes: Extraocular muscles are intact. Pupils are equal, round and reactive to light and accommodation. Ears: No lesions. Nose appeared normal. Throat: No exudate or erythema. NECK: Supple. No JVD, no carotid bruit. No lymphadenopathy or thyromegaly. LUNGS: Clear to auscultation. Percussion note normal. Chest symmetrical. HEART: S1, S2, no S3. No murmurs. No cyanosis or clubbing. No ascites. Pulses: Dorsalis pedis and posterior tibial pulses +1 to +2 both sides. ABDOMEN: Soft. Nontender. Bowel sounds active. No CVA tenderness. No mass felt. EXTREMITIES: No edema. Full range of motion of all extremities, equal. NEUROLOGIC: No focal deficit. Cranial nerves II through XII are grossly intact. No headache, no double vision or headache. SKIN: Not dry. Intact. Turgor - normal. LYMPHATIC: No palpable lymph nodes/no lymphedema. MUSCULOSKELETAL: Normal joints with no swelling. Muscle tone is normal. LABS: Hgb 10.3, hct 30, WBC 9,600 normal differential, creatinine 1, BUN 15, potassium 3.5. ASSESSMENT: 1. Acute renal failure, resolved 2. Acute right frontal stroke with no neurological deficit. 3. Atrial fibrillation on Eliquis 4. Coronary artery disease, stable PLAN: 1. She is a good candidate for physical therapy, highly motivated. 2. The patient and the family where explained about Eliquis and the side effects like GI bleed, intracranial bleed and advised not to take it with any non-steroidal anti-inflammatory. CONDITION: Stable TIME SPENT: More than 30 minutes. Plan and coordination of the patient's care discussed in the presence of nurse. KARYN
--- NOTE | 2016-12-19 11:19 | HP ---
DATE OF SERVICE: 12/09/16 - SWING BED HISTORY OF PRESENT ILLNESS: This is an 81-year-old female who presented to the emergency room with severe hypokalemia, dehydration, had been experiencing some vomiting for the past two days. She was placed in the hospital for IV rehydration and potassium replacement. It was found that she had new onset atrial fibrillation. She was in acute renal failure upon admission which gradually improved with IV fluids. She was placed on Lovenox and Coreg due to the new onset of atrial fib. CT scan showed that she had had multiple infarcts, most recently a right frontal lobe infarct. She had generalized weakness as well as confusion due to dementia. She will be placed in the swing bed for PT and OT and further IV hydration. 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 Dementia PAST SURGICAL HISTORY: Coronary artery disease with stent x2; 2010 CABG in 1989 Renal artery stent Left breast lumpectomy 1981 REVIEW OF SYSTEMS: CONSTITUTIONAL: Fatigue and generalized weakness. No night sweats. No fever or chills. HEENT: Eyes: No visual changes. No eye pain. No eye discharge. ENT: No runny nose. No epistaxis. No sinus pain. No sore throat. No odynophagia. No ear pain. No congestion. RESPIRATORY: No cough, no congestion. No hemoptysis. No shortness of breath. CARDIOVASCULAR: No angina symptoms. No CHF symptoms. No atypical chest pain for CAD. No palpitations. No orthopnea. GASTROINTESTINAL: No abdominal pain. No nausea or vomiting. No diarrhea or constipation. No hematemesis. No hematochezia. GENITOURINARY: No urgency. No frequency. No dysuria. No hematuria. No obstructive symptoms. No discharge. No pain. No significant abnormal bleeding. MUSCULOSKELETAL: No musculoskeletal pain. No joint swelling. No arthritis. NEUROLOGICAL: She does have some bouts of confusion off and on due to dementia. No headache. No neck pain. No syncope. No seizures. No dizziness. PSYCHIATRIC: Not anxious. No depression. No suicidal thoughts. No homicidal thoughts. SKIN: No rash. No lesions. No wounds. ENDOCRINE: No unexplained weight loss. No weight gain. HEMATOLOGIC/LYMPHATIC: No anemia. No purpura. No petechiae. No prolonged or excessive bleeding. No palpable lymph nodes. PERSONAL/FAMILY/SOCIAL HISTORY: She is not a smoker. She denies any alcohol or ilicit drug use. She currently lives alone with her dog and still works at [employer] parttime. MEDICATIONS: IV fluids 40 mL/hr Ranitidine 150 mg p.o. b.i.d. a.c. Sucralfate 1 gm p.o. a.c. h.s. K-Dur 20 mEq p.o. b.i.d. with meal Coreg 12.5 mg p.o. b.i.d. with meal Atorvastatin 10 mg p.o. bedtime Calcium Carbonate/Vitamin D3 one each p.o. b.i.d. Carvedilol 0.5 mg p.o. b.i.d. Citalopram 20 mg p.o. bedtime Memantine 10 mg p.o. bedtime Protonix 40 mg p.o. q.d a.c. Aspirin 81 mg p.o. daily with meal Amlodipine (Norvasc) 5 mg p.o. daily Rocephin 1 gm 1 gm IV Aricept 5 mg p.o. daily Ferrous Sulfate 324 mg p.o. daily Losartan/Hydrochlorothiazide 100-12.5 mg p.o. daily Cozaar 100 mg p.o. daily Lovenox 70 mg Subcut daily Donepezil (Aricept) 5 mg p.o. daily Keflex 500 mg p.o. q.8hr Apixaban (Eliquis) 2.5 mg p.o. b.i.d. Decadron 4 mg IM once ALLERGIES: SULFA PHYSICAL EXAMINATION: HEENT: Head normocephalic, atraumatic. Eyes: Extraocular muscles are intact. Pupils are equal, round and reactive to light and accommodation. Ears: No lesions. Nose appeared normal. Throat: No exudate or erythema. NECK: Supple. No JVD, no carotid bruit. No lymphadenopathy or thyromegaly. LUNGS: Clear with diminished breath sounds bilaterally. Percussion note normal. Chest symmetrical. HEART: Irregular heart rate due to atrial fibrillation. S1, S2, no S3. No murmurs. No cyanosis or clubbing. No ascites. Pulses: Dorsalis pedis and posterior tibial pulses +1 to +2 both sides. ABDOMEN: Soft. Nontender. Bowel sounds active. No CVA tenderness. No mass felt. EXTREMITIES: No edema. Full range of motion of all extremities, equal. NEUROLOGIC: Alert and oriented to person and place. No focal deficit. Cranial nerves II through XII are grossly intact. No headache, no double vision or headache. SKIN: Not dry. Intact. Turgor - normal. LYMPHATIC: No palpable lymph nodes/no lymphedema. MUSCULOSKELETAL: Normal joints with no swelling. Muscle tone is normal. ASSESSMENT: 1. NEW ONSET ATRIAL FIBRILLATION 2. GENERALIZED WEAKNESS 3. CVA WITH RIGHT FRONTAL LOBE INFARCT 4. ACUTE RENAL FAILURE SLOWLY IMPROVING 5. HYPOKALEMIA RESOLVED 6. LARGE HIATAL HERNIA 7. DEMENTIA 8. UTI PLAN: 1. We will admit her to Swing Bed. 2. PT/OT for evaluation and treatment. 3. She will be placed on Keflex 500 mg p.o. t.i.d. for UTI. 4. She is to continue her Coreg to regulate her rate for new onset atrial fib. 5. Will continue daily Lovenox as a result of the new onset atrial fib. 6. Continue IV fluids due to slowly improving kidney function which is almost normal due to severe dehydration. 7. We will continue to follow her closely with the end goal being that she go back home. Her daughters have stated that they will stay with her for awhile after returning home. TIME SPENT: More than 70 minutes. MTDD
--- NOTE | 2016-12-24 15:48 | DS ---
DATE OF SERVICE: 12/15/16 FINAL DIAGNOSIS: 1. New onset atrial fibrillation 2. UTI, E-coli 3. Dehydration 4. Acute renal failure 5. Hypokalemia, resolved 6. Coronary artery disease, [place] 7. Cardiomegaly, stable 8. Multiple CVA 9. Carotid stenosis 10.Hypertension 11.Dyslipidemia 12.Chronic kidney disease 13.Anemia 14.Diabetes Mellitus, type 2 15.GERD 16.Large hiatal hernia 17.Diverticulitis by history 18.Anxiety/Depression 19.Dementia 20.CABG (Dr Gastelum, 1992) 21.Cardiac stents x2 (Bobby, 2010) 22.Renal stent 23.Left breast lumpectomy, 1981 LAST VITALS: Temperature 98.0, pulse 71, respiratory rate 20, blood pressure 116/68 and pulse ox 92%. DISCHARGE INSTRUCTIONS: Discharge home. Return to see dr. Tierney in one week. [facility] health nursing, physical therapy and occupational therapy will be arranged to come to your home. Resume your home medications as per list. MEDICATIONS AT DISCHARGE: Norvasc 5mg PO twice a day Eliquis 2.5mg PO twice a day Aspirin 81mg PO daily Lipitor 10mg PO bedtime Calcium 500+Vitamin D200mg one each PO twice a day Coreg 12.5mg PO twice a day Keflex 500mg PO Q 8 hours Celexa 20mg PO bedtime Aricept 5mg PO daily Ferrous Sulfate 324mg PO daily Losartan potassium/Hydrochlorothiazide 100/12.5mg PO daily Gaviscon liquid 355ml PO four times a day PRN Namenda 10mg PO bedtime Protonix 40mg PO QDAC K-Dur 10meq PO daily Zantac 150mg PO twice a day Carafate 1 gram PO ACHS ALLERGIES: Sulfa NEW PRESCRIPTIONS: Norvasc 5mg take one tablet by mouth twice daily Eliquis 2.5mg Take one tablet by mouth twice daily Keflex 500mg take one capsule by mouth every 8 hours for 3 days only Increase potassium K-dur to 20meq by mouth daily DIET INSTRUCTIONS: Healthy heart ACTIVITY: Get plenty of rest at home. Gradually increase activity level according to toleration. SMOKING: Nonsmoker DISEASE SPECIFIC EDUCATION: Atrial fibrillation Acute renal failure Dehydration Weakness UTI, E-coli Eliquis Benefits and risks Home medications New prescriptions Followup HOSPITAL COURSE: This is an 81 year old female who was brought in the emergency room with extreme weakness and fatigue. CT scan revealed that she had had multiple infarcts most recently a right frontal lobe infarct. She was also somewhat short of breath and was found that she had a new onset atrial fibrillation which she has remained during the course of her hospital stay. Her urine also grew e-coli for which she had been on IV Rocephin. She was in acute care for several days after it was found that she was stable. She had had acute renal failure with creatinine up to 3 and then severe hypokalemia with potassium down to 2.7. After this had recovered and she was in stable condition she was admitted to swing bed to continue the IV Rocephin due to the UTI along with continuing telemetry due to the new onset atrial fibrillation. She did remain in atrial fibrillation during the course of her hospital stay. She had been on Lovenox daily. Last week after being admitted to swing bed we changed this to Eliquis 2.5mg PO twice a day due to kidney function. Today most recent labs show that her kidney function is normal with a BUN of 15 and creatinine 1.0. She has no extremity weakness although she does have some forgetfulness which is thought to be chronic and due to dementia rather then from acute CVA. She has been up and about with the use of a cane. She has not even been using the walker. She has been physical therapy in the hospital since being admitted to swing bed. Her vital signs have all be stable. Today her pulse ox is 92% so we will do a three step oxygen test prior to discharged. Vital signs have been good. Her rate has been control with the atrial fibrillation, temperature 98, heart rate 71, respirations 20, blood pressure 116/68 and pulse ox 92% today. We will send her home on Keflex 500mg three times a day for the next three days to complete a 10 day course to treat her urinary tract infection. We will see her back in the office later this week. She is not going home by herself, her brine plant operator and or daughter will be staying with her at all times as she previously lived alone and on her own. We will continue to follow with her closely. TIME SPENT: More than 60 minutes. KARYN
== END 2016-12-15 11:50 | disposition home or self-care (01) | DRG 308 ==
LOC: MEDSURG B 15:32 → EEVIPCON 15:32
PROVIDERS: ADMIT Internal Medicine; ATTEND Internal Medicine
DX: I48.91 Unspecified atrial fibrillation (principal); I63.8 Other cerebral infarction; N39.0 Urinary tract infection, site not specified; N17.9 Acute kidney failure, unspecified; R53.1 Weakness; E86.0 Dehydration; I25.10 Atherosclerotic heart disease of native coronary artery without angina pectoris; E11.22 Type 2 diabetes mellitus with diabetic chronic kidney disease; I51.7 Cardiomegaly; I65.29 Occlusion and stenosis of unspecified carotid artery; I10 Essential (primary) hypertension; I12.9 Hypertensive chronic kidney disease with stage 1 through stage 4 chronic kidney disease, or unspecified chronic kidney disease; N18.9 Chronic kidney disease, unspecified; D64.9 Anemia, unspecified; K21.9 Gastro-esophageal reflux disease without esophagitis; K44.9 Diaphragmatic hernia without obstruction or gangrene; E78.5 Hyperlipidemia, unspecified; F41.8 Other specified anxiety disorders; F03.90 Unspecified dementia, unspecified severity, without behavioral disturbance, psychotic disturbance, mood disturbance, and anxiety; I25.2 Old myocardial infarction; B96.20 Unspecified Escherichia coli [E. coli] as the cause of diseases classified elsewhere; Z95.1 Presence of aortocoronary bypass graft; Z79.01 Long term (current) use of anticoagulants; Z79.899 Other long term (current) drug therapy
CPT/HCPCS: 36415; 80053; 85025; 94761; 97802

== ENCOUNTER 2016-12-15 16:36 | Outpatient (CLI) | payer OTHER | END 2016-12-15 16:37 | disposition home or self-care (01) | LOC: AMBL 16:36 | PROVIDERS: ATTEND Internal Medicine | DX: R07.9 Chest pain, unspecified (principal); R00.0 Tachycardia, unspecified; R10.9 Unspecified abdominal pain; I48.92 Unspecified atrial flutter ==

== ENCOUNTER 2017-05-16 10:47 | Emergency (ER) ==
[2017-05-16 11:03] VITALS: BP 138/82; TEMP 96.6; BMI 24.9
--- NOTE | 2017-05-16 11:21 | ED.PDOC ---
General ED Provider: Dr. CHLOE CONNER Chief Complaint: Dizziness Stated Complaint: Patient presents with c/o dizziness,lightheadedness and mid epigastric discomfort beginning this morning while she was getting ready for work. Employed at [employer]. In addition had one episode of diarrhea x and experiencing nausea. [place] dizzy like she was going to pass out. History of Hiatal hernia and CAD, previous [place] and had 2 stents placed 2 months ago at [facility]. Time Seen by Physician: 11:15 Mode of Arrival: Walk-In Information Source: Patient Exam Limitations: No limitations Primary Care Provider: ANA BARRY Referred to ED by: Other (Her daughter) Nursing and Triage Documentation Reviewed and Agree: Yes Reviewed sepsis parameters & appropriate labs ordered?: Yes System Inflammatory Response Syndrome: Not Applicable Sepsis Protocol: For patient's 13 years and over: Temp is 96.8 and below OR 101 and greater Pulse >90 BPM Resp >20/minute Acutely Altered Mental Status Are patient's symptoms suggestive of a new infection, such as: -Pneumonia -Skin, Soft Tissue -Endocarditis -UTI -Bone, Joint Infection -Implantable Device -Acute Abdominal Infection -Wound Infection -Meningitis -Blood Stream Catheter Infection -Unknown System Inflammatory Response Syndrome: Not Applicable Neurological Complaint Exam - Dizziness Complaint/Exam Onset: Sudden Symptoms Are: Resolved Timing: Intermittent Episodes Lasting: Minutes Initial Severity: Severe Current Severity: None Character: Reports: Lightheaded, Weak, Dizzy Aggravating: Reports: None Alleviating: Reports: Rest Associated Signs and Symptoms: Reports: Nausea, Chest pain (Mid epigastric discomfort) Cardiac Risk Factors: Reports: Hypertension, Prior [place], CAD CVA Risk Factors: Reports: Hypertension, CAD Related Surgical History: Reports: PTCA, Stent JVD Present: No Nystagmus Present: No Gag Reflex Present: Yes Meningeal Signs Positive: No Focal Weakness: Present: None Focal Sensory Loss: Present: None Gait: Unsteady Differential Diagnoses: CAD, Dysrhythmia, Hypovolemia, Labyrinthitis, Vasovagal reaction Quality Indicator For Non-Traumatic Chest Pain/Syncope: EKG Performed Review of Systems - Review Of Systems Constitutional: Reports: No symptoms Eyes: Reports: No symptoms Ears, Nose, Mouth, Throat: Reports: No symptoms Respiratory: Reports: No symptoms Cardiac: Reports: No symptoms GI: Reports: No symptoms, Nausea : Reports: No symptoms Musculoskeletal: Reports: No symptoms Skin: Reports: No symptoms Neurological: Reports: Cognitive dysfunction Endocrine: Reports: No symptoms Hematologic/Lymphatic: Reports: Anemia All Other Systems: Reviewed and Negative Past Medical History - Past Medical History Endocrine: Reports: None Cardiovascular: Reports: CAD, [place], Hypertension Respiratory: Reports: None Hematological: Reports: None Gastrointestinal: Reports: None Genitourinary: Reports: None Neuro/Psych: Reports: None Musculoskeletal: Reports: None Cancer: Reports: None Last Menstrual Period: does not apply - Surgical History General Surgical History: Reports: CABG - Family History Family History: Reports: Unknown - Social History Smoking Status: Never smoker Hx Substance Use: No Alcohol Screening: None - Immunizations Tetanus Shot up to Date: Yes Influenza Vaccine within 12 Months: No Pneumococcal Vaccine up to Date: No Physical Exam - Physical Exam Appearance: Well-appearing, No pain distress Ill-appearing: Mild Pain Distress: None Eyes: NEY, EOMI, Conjunctiva clear, Conjunctiva inflammed ENT: Ears normal, Nose normal, Oropharynx normal Neck: Supple Respiratory: Airway patent, Breath sounds clear, Breath sounds equal Cardiovascular: RRR, Bradycardia GI/: Soft, Nontender, No masses, Bowel sounds normal Musculoskeletal: Normal strength, ROM intact, No edema Skin: Warm, Dry, Pale Neurological: Sensation intact, Motor intact, Alert, Oriented Psychiatric: Affect appropriate, Mood appropriate Re-Evaluation - Re-Evaluation Time of Re-Evaluation: 13:45 Status: Improved Vital Signs Stable: Yes Pain Level: 2/10; mid epigastric, dyspepsia, belching Appearance: NAD Lungs: Clear Skin: Warm and Dry Neuro: Alert and Oriented X3 CV: RRR Additional Comments: Will order GI cocktail Have reviewed lab and EKG with patient Critical Care Note - Critical Care Note Total Time (mins): 30 Course - Course Hematology/Chemistry: 05/16/17 11:35 05/16/17 11:35 Orders, Labs, Meds: Lab Review 05/16/17 05/16/17 11:35 11:35 WBC 6.13 RBC 3.95 L Hgb 11.8 L Hct 34.4 L MCV 87.1 MCH 29.9 MCHC 34.3 RDW Coeff of Shadi 13.2 Plt Count 206 Immature Gran % (Auto) 0.3 Neut % (Auto) 64.2 Lymph % (Auto) 24.6 [place] % (Auto) 7.5 Eos % (Auto) 2.6 Baso % (Auto) 0.8 Immature Gran # (Auto) 0.0 Neut # (Auto) 3.9 Lymph # (Auto) 1.5 King # (Auto) 0.5 Eos # (Auto) 0.2 Baso # (Auto) 0.1 Sodium 142 Potassium 3.8 Chloride 109 H Carbon Dioxide 20 L Anion Gap 16.8 BUN 19 H Creatinine 1.08 Estimated GFR (MDRD) 49.00 BUN/Creatinine Ratio 17.59 Glucose 128 H Calcium 9.3 Total Bilirubin 0.6 AST 11 L ALT 8 L Alkaline Phosphatase 62 Troponin I 0.0130 Total Protein 7.4 Albumin 3.9 Globulin 3.5 Albumin/Globulin Ratio 1.11 TSH 1.226 Orders Category Date Time Status EKG-(ED ONLY) Stat CARDIO 05/16/17 11:14 Completed IV [ED IV/MEDIPORT/POWERPORT] .ONCE EMERGENCY 05/16/17 11:36 Active CBC W/ AUTO DIFF Stat LAB 05/16/17 11:35 Completed CMP [COMPREHENSIVE METABOLIC PANEL] Stat LAB 05/16/17 11:35 Completed THYROID STIMULATING HORMONE Stat LAB 05/16/17 11:35 Completed TROPONIN I Stat LAB 05/16/17 11:35 Completed 0.9 % Sodium Chloride [Saline Flush] MEDS 05/16/17 11:36 Ordered 1 syr IVF PRN PRN Mag-Al Plus//Lidocaine [Gi Cocktail] MEDS 05/16/17 12:51 Discontinued 30 ml PO ONCE STA Medications Generic Name Dose Route Start Last Admin Trade Name Freq PRN Reason Stop Dose Admin Sodium Chloride 1 syr 05/16/17 11:36 Saline Flush IVF PRN PRN To flush IV Discontinued Medications Generic Name Dose Route Start Last Admin Trade Name Freq PRN Reason Stop Dose Admin Al Hydroxide/Mg Hydroxide 30 ml 05/16/17 12:51 05/16/17 13:05 Gi Cocktail PO 05/16/17 12:52 30 ml ONCE STA Administration Vital Signs: Temp Pulse Resp BP Pulse Ox 05/16/17 10:48 96.6 F L 58 L 20 138/82 94 L Departure - Departure Time of Disposition: 14:20 Disposition: HOME SELF-CARE Discharge Problem: Gastric reflux syndrome, Dizziness Instructions: Gastroesophageal Reflux Disease (ED), Lightheadedness (ED), Dizziness (ED) Condition: Good Pt referred to PMD for follow-up: Yes (1 WEEK) IPMP verified?: No Prescriptions: Pantoprazole Sodium [Protonix] 40 mg PO ONCE #30 tablet. Allergies/Adverse Reactions: Allergies Sulfa (Sulfonamide Antibiotics) Allergy (Verified 05/16/17 11:00) Itching Home Medications: Ambulatory Orders Aspirin [Aspirin Chewable] 81 mg PO DAILYWM 11/12/15 Calcium Carbonate/Vitamin D3 [Calcium 600-Vit D3 800 Tab] 1 each PO BID Carvedilol 0.5 tab PO BID 11/12/15 Citalopram Hydrobromide [Citalopram HBr] 20 mg PO BEDTIME 11/12/15 Mag Carb/Aluminum Hydrox/Algin [Gaviscon Liquid] 355 ml PO QID PRN 11/12/15 Pantoprazole Sodium [Protonix] 40 mg PO QDAC 11/12/15 Ranitidine HCl [Zantac] 150 mg PO BIDAC 11/12/15 Sucralfate [Carafate] 1 gm PO ACHS 11/12/15 Atorvastatin Calcium 10 mg PO BEDTIME 05/02/16 Donepezil HCl [Aricept] 5 mg PO DAILY #30 tablet 05/06/16 Memantine HCl [Namenda] 10 mg PO BEDTIME #30 tablet 05/06/16 Ferrous Sulfate 324 mg PO DAILY 12/04/16 Losartan/Hydrochlorothiazide [Losartan-Hctz 100-12.5 mg Tab] 1 each PO DAILY 05/23 Amlodipine Besylate [Norvasc] 5 mg PO BID #60 tablet 12/15/16 Apixaban [Eliquis] 2.5 mg PO BID #60 tablet 12/15/16 Potassium Chloride [K-Dur] 20 meq PO DAILY #30 tab 12/15/16 Pantoprazole Sodium [Protonix] 40 mg PO ONCE #30 tablet. 05/16/17 Disposition Discussed With: Patient, Family
[2017-05-16] MEDS ORDERED: ATARAX PO STA (12:04)
[2017-05-16] MEDS: GI COCKTAIL PO STA (13:05)
== END 2017-05-16 14:37 | disposition home or self-care (01) ==
LOC: ED 10:47
DX: K21.9 Gastro-esophageal reflux disease without esophagitis (principal); R42 Dizziness and giddiness; I25.2 Old myocardial infarction; Z95.5 Presence of coronary angioplasty implant and graft; I25.810 Atherosclerosis of coronary artery bypass graft(s) without angina pectoris; Z79.899 Other long term (current) drug therapy
CPT/HCPCS: 36415; 80053; 84443; 84484; 85025; 93005; 93010; 99283

== ENCOUNTER 2018-08-25 10:16 | Outpatient (CLI) ==
--- NOTE | 2018-08-25 10:54 | MAMMO ---
EXAM: Bilateral digital screening mammogram (2-D and 3-D) History: Screening Comparison: None available. Findings: MLO and CC views of bilateral breasts demonstrate scattered fibroglandular breast parenchy ma. CAD was reviewed by the radiologist. Tomosynthesis was performed. Benign bilateral vascular ca lcifications and benign bilateral coarse dystrophic calcifications. A few benign lymph nodes are see n within the left axilla. There are no suspicious masses, no suspicious microcalcifications and no a rchitectural distortions Impression: Benign mammogram. Recommend followup routine screening mammography in 1 year. BI-RADS 2, benign
== END 2018-08-25 10:17 | disposition home or self-care (01) ==
LOC: RAD 10:16
PROVIDERS: ATTEND Internal Medicine
DX: Z12.31 Encounter for screening mammogram for malignant neoplasm of breast (principal)

== ENCOUNTER 2020-09-13 12:14 | Inpatient (IN) ==
[2020-09-13 12:38] LABS: BORDETELLA PARAPERTUSSIS (PCR) NOT DETECTED (NOT DETECT); BORDETELLA PERTUSSIS (PCR) NOT DETECTED (NOT DETECT); CHLAMYDIA PNEUMONIAE (PCR) NOT DETECTED (NOT DETECT); CORONAVIRUS 229E (PCR) NOT DETECTED (NOT DETECT); CORONAVIRUS HKU1 (PCR) NOT DETECTED (NOT DETECT); CORONAVIRUS NL63 (PCR) NOT DETECTED (NOT DETECT); CORONAVIRUS OC43 (PCR) NOT DETECTED (NOT DETECT); HUMAN METAPNEUMOVIRUS (PCR) NOT DETECTED (NOT DETECT); HUMAN RHINOVIRUS/ENTEROV (PCR) NOT DETECTED (NOT DETECT); INFLUENZA B (PCR) NOT DETECTED (NOT DETECT); MYCOPLASMA PNEUMONIAE (PCR) NOT DETECTED (NOT DETECT); PARAINFLUENZA VIRUS 1 (PCR) NOT DETECTED (NOT DETECT); PARAINFLUENZA VIRUS 2 (PCR) NOT DETECTED (NOT DETECT); PARAINFLUENZA VIRUS 3 (PCR) NOT DETECTED (NOT DETECT); PARAINFLUENZA VIRUS 4 (PCR) NOT DETECTED (NOT DETECT); RESPIRATORY SYNCYTIAL V (PCR) NOT DETECTED (NOT DETECT); SARS_COV_2 (PCR) NOT DETECTED (NOT DETECT)
[2020-09-13 13:25] LABS: ADENOVIRUS (PCR) NOT DETECTED (NOT DETECT)
[2020-09-13] MEDS ORDERED: NITROSTAT SL PRN (14:20)
[2020-09-13] MEDS ORDERED: TYLENOL PO PRN (14:20)
[2020-09-13] MEDS ORDERED: ATROPINE SULFATE PFS IVP PRN (14:20)
[2020-09-13 14:38] VITALS: BMI 23.0
[2020-09-13 14:58] LABS: ABSOLUTE RETICS # 0.0241; EOSINOPHILS % (AUTO) 0.9 % (0.0-7.0); HEMATOCRIT 24.5 % (37.0-47.0); HEMOGLOBIN 8.6 g/dl (12.0-16.0); IMMATURE GRANULOCYTE % (AUTO) 0.3 % (0.0-5.0); LYMPHOCYTES # (AUTO) 1.5 K/uL (0.60-3.4); LYMPHOCYTES % (AUTO) 44.7 (10.0-50.0); MEAN CORPUSCULAR HEMOGLOBIN 32.8 pg (27.0-31.0); MEAN CORPUSCULAR HGB CONC 35.1 (31.8-35.4); MEAN CORPUSCULAR VOLUME 93.5 fl (81.0-99.0); MONOCYTES # (AUTO) 1.4 K/uL (0.4-2.0); MONOCYTES % (AUTO) 42.9 (0-10); NEUTROPHILS # (AUTO) 0.4 K/ul (2.0-6.9); NEUTROPHILS % (AUTO) 11.2 % (42.2-75.2); PLATELET COUNT 145 10^3/uL (140-440); RDW COEFFICIENT OF VARIATION 16.3 % (11.6-14.8); RED BLOOD COUNT 2.62 10^6/ul (4.20-5.40); RETICULOCYTE % 0.92 %; RETICULOCYTE HEMOGLOBIN 36.9; WHITE BLOOD COUNT 3.29 K/ul (4.6-10.2)
[2020-09-13 15:02] LABS: ALANINE AMINOTRANSFERASE 20.2 U/L (0-35); ALBUMIN 3.52 g/dL (3.5-5.0); ALKALINE PHOSPHATASE 71.1 U/L (53-141); ASPARTATE AMINO TRANSFERASE 24.7 U/L (14-36); BILIRUBIN,TOTAL 0.53 mg/dL (0.2-1.3); BLOOD UREA NITROGEN 29.7 mg/dL (7-17); CALCIUM 8.17 mg/dL (8.4-10.2); CARBON DIOXIDE 22.1 mmol/L (22-30.0); CHLORIDE 109.5 mmol/L (98-107); CREATININE 1.1 mg/dL (0.60-1.30); GLUCOSE 120.2 mg/dL (74-106); POTASSIUM 3.27 mmol/L (3.5-5.1); SODIUM 139.3 mmol/L (134.5-145); TOTAL PROTEIN 6.48 g/dL (6.3-8.2)
[2020-09-13 15:14] LABS: TROPONIN I 0.272 ng/ml (0.0000-0.120)
[2020-09-13] MEDS: SODIUM CHLORIDE 1,000 ML IV SCH (15:21)
[2020-09-13 16:07] LABS: FOLATE 9.51 ng/mL
--- NOTE | 2020-09-13 16:26 | DI ---
EXAM: Single view of the chest HISTORY: Weakness. COMPARISON: Chest x-ray 12/31/2018 FINDINGS: Cardiomediastinal silhouette is enlarged with intact sternotomy wires. There is a large hi atal hernia. The lungs are clear. There is no pneumothorax. The osseous structures are unremarkabl e. IMPRESSION: Stable cardiomegaly with a large hiatal hernia.
[2020-09-13] MEDS: K-DUR PO SCH (16:51)
[2020-09-13] MEDS: CARAFATE PO SCH ×2 (16:51→20:52)
[2020-09-13] MEDS: COREG PO SCH (16:52)
[2020-09-13] MEDS: CELEXA PO SCH (20:51)
[2020-09-13] MEDS: CALCIUM 500 + VIT D 5 MCG (200 IU) TABLET PO SCH (20:51)
[2020-09-13] MEDS: LIPITOR PO SCH (20:51)
[2020-09-13] MEDS: NAMENDA PO SCH (20:52)
[2020-09-13] MEDS ORDERED: NON-FORMULARY MEDICATION (Calcium Carbonate-Vitamin D3 1 EACH tablet) PO SCH (21:00)
[2020-09-13] MEDS ORDERED: NORVASC PO SCH (21:00)
[2020-09-13 21:15] LABS: BILIRUBIN,URINE Negative (NEGATIVE); CLARITY,URINE Clear (CLEAR); COLOR,URINE Yellow (YELLOW); GLUCOSE, URINE (UA) Negative (NEGATIVE); KETONES,URINE Negative (NEGATIVE); LEUKOCYTE ESTERASE ,URINE 1+ (NEGATIVE); NITRITE,URINE Negative (NEGATIVE); PROTEIN,URINE 1+ (NEGATIVE); URINE, BLOOD Negative (NEGATIVE)
[2020-09-13 21:20] LABS: BACTERIA,URINE 2+ (NOT PRESENT); FINE GRANULAR CASTS,URINE 0-2 (NOT PRESENT)
[2020-09-13 23:16] LABS: CREATINE KINASE < 20.0 U/L (30-135)
[2020-09-13 23:23] LABS: TROPONIN I 0.246 ng/ml (0.0000-0.120)
[2020-09-14] MEDS: SODIUM CHLORIDE 1,000 ML IV SCH (04:35)
[2020-09-14 05:18] LABS: ANISOCYTOSIS NOT PRESENT (NOT PRESENT)
[2020-09-14 05:19] LABS: HEMATOCRIT 25.7 % (37.0-47.0); HEMOGLOBIN 8.8 g/dl (12.0-16.0); MEAN CORPUSCULAR HEMOGLOBIN 31.9 pg (27.0-31.0); MEAN CORPUSCULAR HGB CONC 34.2 (31.8-35.4); MEAN CORPUSCULAR VOLUME 93.1 fl (81.0-99.0); PLATELET COUNT 113 10^3/uL (140-440); RDW COEFFICIENT OF VARIATION 16.3 % (11.6-14.8); RED BLOOD COUNT 2.76 10^6/ul (4.20-5.40); WHITE BLOOD COUNT 2.74 K/ul (4.6-10.2)
[2020-09-14 05:22] LABS: ALANINE AMINOTRANSFERASE 19.9 U/L (0-35); ALBUMIN 3.17 g/dL (3.5-5.0); ALKALINE PHOSPHATASE 66.1 U/L (53-141); ASPARTATE AMINO TRANSFERASE 28.9 U/L (14-36); BILIRUBIN,TOTAL 0.47 mg/dL (0.2-1.3); BLOOD UREA NITROGEN 22.6 mg/dL (7-17); CALCIUM 7.96 mg/dL (8.4-10.2); CARBON DIOXIDE 21.5 mmol/L (22-30.0); CHLORIDE 111.4 mmol/L (98-107); CREATININE 1.01 mg/dL (0.60-1.30); GLUCOSE 114.2 mg/dL (74-106); POTASSIUM 3.59 mmol/L (3.5-5.1); SODIUM 139.4 mmol/L (134.5-145); TOTAL PROTEIN 6.03 g/dL (6.3-8.2)
[2020-09-14] MEDS ORDERED: PROTONIX PO SCH (06:30)
[2020-09-14] MEDS: CARAFATE PO SCH ×4 (07:04→20:33)
--- NOTE | 2020-09-14 09:17 | PCM.PROG ---
Attending Provider: ATTENDING PROVIDER: Dr. ANA BARRY DATE OF SERVICE: 09/14/20 SUBJECTIVE: This 84 year old /WHITE F was hospitalized 09/13/20 with fatigue and weakness. The patient's daughter is concerned about her being home alone. REVIEW OF SYSTEMS: CONSTITUTIONAL: No night sweats. No fatigue, malaise, lethargy. No fever or chills. Weakness. HEENT: Eyes: No visual changes. No eye pain. No eye discharge. ENT: No runny nose. No epistaxis. No sinus pain. No odynophagia. No congestion. RESPIRATORY: No cough, no congestion. No hemoptysis. No shortness of breath. CARDIOVASCULAR: No angina symptoms. No CHF symptoms. No atypical chest pain for CAD. No palpitations. No orthopnea.. GASTROINTESTINAL: No abdominal pain. No nausea or vomiting. No diarrhea or const ipation. No hematemesis. No hematochezia. Appetite is better, hungry this morning. GENITOURINARY: No urgency. No frequency. No dysuria. No hematuria. No obstructive symptoms. No discharge. No pain. No significant abnormal bleeding. MUSCULOSKELETAL: No musculoskeletal pain; no joint swelling. NEUROLOGICAL: Awake, alert, more forgetful according to family. No headache. No neck pain. No syncope. No seizures. No dizziness. PSYCHIATRIC: Not anxious. No depression. No suicidal thoughts. No homicidal thoughts. SKIN: No rash. No lesions. No wounds. ENDOCRINE: No unexplained weight loss. No weight gain. HEMATOLOGIC/LYMPHATIC: No anemia. No purpura. No petechiae. No prolonged or excessive bleeding. No palpable lymph nodes. PHYSICAL EXAMINATION: GENERAL: The patient is awake, alert and oriented, lying in bed in no distress. VITAL SIGNS: Temperature 98.0 F, Pulse 100, Respiratory Rate 20, BP 110/73, Pulse Ox 94% HEENT: Head normocephalic, atraumatic. Eyes: Extraocular muscles are intact. Pupils are equal, round and reactive to light and accommodation. Ears: No lesions. Nose appeared normal. Throat: No exudate or erythema. NECK: Supple. No JVD, no carotid bruit. No lymphadenopathy or thyromegaly. LUNGS: Good air entry. Clear to auscultation. Percussion note normal. Chest symmetrical. HEART: S1, S2, no S3. No murmurs. No cyanosis or clubbing. No ascites. Pulses: Dorsalis pedis and posterior tibial pulses +1 to +2 both sides. ABDOMEN: Soft. Non-tender. Bowel sounds active. No CVA tenderness. No mass felt. EXTREMITIES: No edema. Full range of motion of all extremities, equal. ORTHOPAEDIC TECHNOLOGIST examination is normal except change in mental status. NEUROLOGIC: No focal deficit. Cranial nerves II through XII are grossly intact. No headache, no double vision or headache. SKIN: Warm and dry. Intact. Turgor-normal. LYMPHATIC: No palpable lymph nodes/no lymphedema. MUSCULOSKELETAL: Normal joints with no swelling. Muscle tone is normal. LAB REVIEW: 09/14/20 05:00 09/14/20 05:00 09/14/20 05:00: Sodium 139.4, Potassium 3.59, Chloride 111.4 H, Carbon Dioxide 21.5 L, Anion Gap 10.09, BUN 22.6 H, Creatinine 1.01, Estimated GFR (MDRD) 52.00, BUN/Creatinine Ratio 22.37, Glucose 114.2 H, Calcium 7.96 L, Total Bilirubin 0.47, AST 28.9, ALT 19.9, Alkaline Phosphatase 66.1, Total Protein 6.03 L, Albumin 3.17 L, Globulin 2.86, Albumin/Globulin Ratio 1.10 09/14/20 05:00: WBC 2.74 L, RBC 2.76 L, Hgb 8.8 L, Hct 25.7 L, MCV 93.1, MCH 31.9 H, MCHC 34.2, RDW Coeff of Shadi 16.3 H, Plt Count 113 L, Neutrophils % (Manual) 8.0 L, Band Neutrophils % 2.0, Lymphocytes % (Manual) 40.0, Monocytes % (Manual) 36.0 H, Eosinophils % (Manual) 2.0, Reactive Lymphocytes 8.0 H, Anisocytosis Not present 09/13/20 22:50: Total Creatine Kinase < 20.0 L, Troponin I 0.246 H 09/13/20 21:05: Urine Color Yellow, Urine Clarity Clear, Urine pH 6.0, Ur Specific [place] 1.020, Urine Protein 1+ H, Urine Glucose (UA) Negative, Urine Ketones Negative, Urine Blood Negative, Urine Nitrite Negative, Urine Bilirubin Negative, Urine Urobilinogen 1.0 H, Ur Leukocyte Esterase 1+ H, Urine Microscopic WBC 10-20, Ur Squamous Epith Cells 5-10, Urine Bacteria 2+, Fine Granular Casts 0-2 09/13/20 14:44: Transferrin 183 09/13/20 14:44: Iron 96.0, TIBC 250 L, % Saturation 38, Vitamin B12 755 09/13/20 14:44: Sodium 139.3, Potassium 3.27 L, Chloride 109.5 H, Carbon Dioxide 22.1, Anion Gap 10.97, BUN 29.7 H, Creatinine 1.10, Estimated GFR (MDRD) 47.00, BUN/Creatinine Ratio 27.00, Glucose 120.2 H, Calcium 8.17 L, Ferritin 328.00 H, Total Bilirubin 0.53, AST 24.7, ALT 20.2, Alkaline Phosphatase 71.1, Total Creatine Kinase 21.0 L, Troponin I 0.272 H, Total Protein 6.48, Albumin 3.52, Globulin 2.96, Albumin/Globulin Ratio 1.18, Folate 9.51 09/13/20 14:44: WBC 3.29 L, RBC 2.62 L, Hgb 8.6 L, Hct 24.5 L, MCV 93.5, MCH 32.8 H, MCHC 35.1, RDW Coeff of Shadi 16.3 H, Plt Count 145, Immature Gran % (Auto) 0.3, Neut % (Auto) 11.2 L, Lymph % (Auto) 44.7, [place] % (Auto) 42.9 H, Eos % (Auto) 0.9, Baso % (Auto) 0.0, Reticulocyte % (Auto) 0.92, Neut # (Auto) 0.4 L , Lymph # (Auto) 1.5, [place] # (Auto) 1.4, Eos # (Auto) 0.0, Baso # (Auto) 0.0, Immature Gran # (Auto) 0.0, Absolute Retic 0.0241, Retic Hgb Equivalent 36.9 09/13/20 12:30: Adenovirus (PCR) Not detected, B. pertussis DNA (PCR) Not detected, B.parapertussis DNA PCR Not detected, C. pneumoniae DNA (PCR) Not detected, Coronavirus OC43 (PCR) Not detected, Coronavirus HKU1 (PCR) Not detected, Coronavirus 229E (PCR) Not detected, Coronavirus NL63 (PCR) Not detected, Human Metapneumovir PCR Not detected, Influenza Type A (PCR) Not detected, Influenza B (RT-PCR) Not detected, M. pneumoniae (PCR) Not detected, Parainfluenza 1 (PCR) Not detected, Parainfluenza 2 (PCR) Not detected, Parainfluenza 3 (PCR) Not detected, Parainfluenza 4 (PCR) Not detected, RSV (PCR) Not detected, Entero/Rhino (PCR) Not detected, SARS-CoV-2 (PCR) Not detected ASSESSMENT: Please see below. 1. Hypoxemia noted in the evening 85-87 oxygen saturation on room air. The patient is on 3-4 liters with 92% saturation. No history of smoking. Chest x-ray showed hiatal hernia, cardiomegaly. No CHF 2. Dementia, worsening 3. Anemia likely cause of blood loss for hernia followed by hematology/oncology. SCRIBED BY: Ruben ALFONSO scribed while in presence of service performed by Dr. ANA BARRY on 09/14/20 ([id number])
[2020-09-14 09:29] LABS: ABG O2 HGB 93.3 % (95-100); ABG PH 7.48 (7.35-7.45); BEecf -3.4 (-2.0-3.0); COHb 2.1 (0.5-1.5); HCO3 20.1 (21-28); MetHb 1.8 (0-1.5); TCO2 20.9 (19-24); sO2 91.8 % (94-98); tHb 8.2 g/dl (11.7-17.4)
[2020-09-14] MEDS: HYZAAR 50-12.5 MG TAB PO SCH (10:05)
[2020-09-14] MEDS: FERROUS SULFATE PO SCH (10:05)
[2020-09-14] MEDS: CALCIUM 500 + VIT D 5 MCG (200 IU) TABLET PO SCH ×2 (10:06→20:33)
[2020-09-14] MEDS: ASPIRIN CHEWABLE PO SCH (10:06)
[2020-09-14] MEDS: COREG PO SCH ×2 (10:06→16:28)
[2020-09-14] MEDS: K-DUR PO SCH ×2 (10:06→16:28)
[2020-09-14] MEDS: ARICEPT PO SCH (10:06)
[2020-09-14] MEDS: PLAVIX PO SCH (10:06)
[2020-09-14] MEDS: PROTONIX PO SCH (16:28)
[2020-09-14] MEDS: NAMENDA PO SCH (20:32)
[2020-09-14] MEDS: LIPITOR PO SCH (20:33)
[2020-09-14] MEDS: CELEXA PO SCH (20:33)
[2020-09-15 05:18] LABS: HEMATOCRIT 22.8 % (37.0-47.0); HEMOGLOBIN 7.8 g/dl (12.0-16.0); MEAN CORPUSCULAR HEMOGLOBIN 31.8 pg (27.0-31.0); MEAN CORPUSCULAR HGB CONC 34.2 (31.8-35.4); MEAN CORPUSCULAR VOLUME 93.1 fl (81.0-99.0); PLATELET COUNT 113 10^3/uL (140-440); RDW COEFFICIENT OF VARIATION 16.5 % (11.6-14.8); RED BLOOD COUNT 2.45 10^6/ul (4.20-5.40); WHITE BLOOD COUNT 2.45 K/ul (4.6-10.2)
[2020-09-15 05:30] LABS: ALANINE AMINOTRANSFERASE 28.6 U/L (0-35); ALBUMIN 3.14 g/dL (3.5-5.0); ALKALINE PHOSPHATASE 71.3 U/L (53-141); ANISOCYTOSIS NOT PRESENT (NOT PRESENT); ASPARTATE AMINO TRANSFERASE 33.3 U/L (14-36); BILIRUBIN,TOTAL 0.53 mg/dL (0.2-1.3); BLOOD UREA NITROGEN 21.3 mg/dL (7-17); CALCIUM 8.34 mg/dL (8.4-10.2); CREATININE 1.06 mg/dL (0.60-1.30); GLUCOSE 114.5 mg/dL (74-106); POTASSIUM 3.47 mmol/L (3.5-5.1); SODIUM 139.1 mmol/L (134.5-145); TOTAL PROTEIN 5.93 g/dL (6.3-8.2)
[2020-09-15] MEDS: CARAFATE PO SCH ×4 (05:53→20:35)
[2020-09-15] MEDS: PROTONIX PO SCH ×2 (05:53→17:47)
[2020-09-15] MEDS: ASPIRIN CHEWABLE PO SCH (09:02)
[2020-09-15] MEDS: COREG PO SCH ×2 (09:03→17:47)
[2020-09-15] MEDS: PLAVIX PO SCH (09:03)
[2020-09-15] MEDS: CALCIUM 500 + VIT D 5 MCG (200 IU) TABLET PO SCH ×2 (09:03→20:35)
[2020-09-15] MEDS: K-DUR PO SCH ×2 (09:03→17:47)
[2020-09-15] MEDS: FERROUS SULFATE PO SCH (09:03)
[2020-09-15] MEDS: HYZAAR 50-12.5 MG TAB PO SCH (09:03)
[2020-09-15] MEDS: ARICEPT PO SCH (09:03)
[2020-09-15] MEDS ORDERED: K-DUR PO STA (12:26)
[2020-09-15 17:57] LABS: HEMATOCRIT 25.7 % (37.0-47.0)
[2020-09-15 17:59] LABS: HEMOGLOBIN 8.8 g/dl (12.0-16.0)
[2020-09-15] MEDS ORDERED: LANOXIN IVP ONE (19:30)
[2020-09-15] MEDS ORDERED: LASIX IVP ONE (19:30)
[2020-09-15] MEDS: NAMENDA PO SCH (20:35)
[2020-09-15] MEDS: LIPITOR PO SCH (20:35)
[2020-09-15] MEDS: CELEXA PO SCH (20:35)
[2020-09-16 05:08] LABS: HEMATOCRIT 23.9 % (37.0-47.0); HEMOGLOBIN 8.2 g/dl (12.0-16.0); MEAN CORPUSCULAR HEMOGLOBIN 31.5 pg (27.0-31.0); MEAN CORPUSCULAR HGB CONC 34.3 (31.8-35.4); MEAN CORPUSCULAR VOLUME 91.9 fl (81.0-99.0); PLATELET COUNT 108 10^3/uL (140-440); RDW COEFFICIENT OF VARIATION 16.6 % (11.6-14.8); WHITE BLOOD COUNT 2.77 K/ul (4.6-10.2)
[2020-09-16 05:17] LABS: ALANINE AMINOTRANSFERASE 32.7 U/L (0-35); ALBUMIN 3.05 g/dL (3.5-5.0); ALKALINE PHOSPHATASE 89.5 U/L (53-141); ASPARTATE AMINO TRANSFERASE 29.4 U/L (14-36); BILIRUBIN,TOTAL 0.68 mg/dL (0.2-1.3); BLOOD UREA NITROGEN 20.9 mg/dL (7-17); CALCIUM 8.16 mg/dL (8.4-10.2); CARBON DIOXIDE 25.2 mmol/L (22-30.0); CHLORIDE 108.3 mmol/L (98-107); CREATININE 1.13 mg/dL (0.60-1.30); GLUCOSE 106.4 mg/dL (74-106); POTASSIUM 3.58 mmol/L (3.5-5.1); SODIUM 137.9 mmol/L (134.5-145); TOTAL PROTEIN 5.95 g/dL (6.3-8.2)
[2020-09-16 05:23] LABS: ANISOCYTOSIS NOT PRESENT (NOT PRESENT)
[2020-09-16] MEDS: PROTONIX PO SCH ×2 (05:47→16:21)
[2020-09-16] MEDS: CARAFATE PO SCH ×4 (05:47→20:30)
[2020-09-16] MEDS: ASPIRIN CHEWABLE PO SCH (08:55)
[2020-09-16] MEDS: K-DUR PO SCH ×2 (08:55→16:21)
[2020-09-16] MEDS: HYZAAR 50-12.5 MG TAB PO SCH (08:56)
[2020-09-16] MEDS: COREG PO SCH ×2 (08:56→16:21)
[2020-09-16] MEDS: CALCIUM 500 + VIT D 5 MCG (200 IU) TABLET PO SCH ×2 (08:56→20:30)
[2020-09-16] MEDS: PLAVIX PO SCH (08:56)
[2020-09-16] MEDS: FERROUS SULFATE PO SCH (08:56)
[2020-09-16] MEDS: ARICEPT PO SCH (08:56)
[2020-09-16] MEDS: ALDACTONE PO SCH ×2 (11:59→20:31)
[2020-09-16] MEDS: LASIX TAB PO SCH (12:00)
[2020-09-16 17:23] LABS: HEMOGLOBIN 10.2 g/dl (12.0-16.0)
[2020-09-16 17:28] LABS: HEMATOCRIT 30.1 % (37.0-47.0)
[2020-09-16] MEDS: CELEXA PO SCH (20:31)
[2020-09-16] MEDS: NAMENDA PO SCH (20:31)
[2020-09-16] MEDS: LIPITOR PO SCH (20:31)
[2020-09-17 04:59] LABS: HEMOGLOBIN 9.3 g/dl (12.0-16.0); MEAN CORPUSCULAR HEMOGLOBIN 32.1 pg (27.0-31.0); MEAN CORPUSCULAR HGB CONC 34.4 (31.8-35.4); MEAN CORPUSCULAR VOLUME 93.1 fl (81.0-99.0); PLATELET COUNT 92 10^3/uL (140-440); RDW COEFFICIENT OF VARIATION 15.9 % (11.6-14.8); WHITE BLOOD COUNT 2.58 K/ul (4.6-10.2)
[2020-09-17 05:13] LABS: ALANINE AMINOTRANSFERASE 28.9 U/L (0-35); ALBUMIN 3.13 g/dL (3.5-5.0); ALKALINE PHOSPHATASE 86.3 U/L (53-141); ANISOCYTOSIS NOT PRESENT (NOT PRESENT); ASPARTATE AMINO TRANSFERASE 23.2 U/L (14-36); BILIRUBIN,TOTAL 0.61 mg/dL (0.2-1.3); BLOOD UREA NITROGEN 21.2 mg/dL (7-17); CALCIUM 8.28 mg/dL (8.4-10.2); CARBON DIOXIDE 25.1 mmol/L (22-30.0); GLUCOSE 108.6 mg/dL (74-106); POTASSIUM 3.95 mmol/L (3.5-5.1); SODIUM 139.4 mmol/L (134.5-145); TOTAL PROTEIN 6.01 g/dL (6.3-8.2)
[2020-09-17] MEDS: LASIX TAB PO SCH (05:44)
[2020-09-17] MEDS: PROTONIX PO SCH ×2 (05:44→16:50)
[2020-09-17] MEDS: CARAFATE PO SCH ×4 (05:44→20:15)
--- NOTE | 2020-09-17 08:13 | ECHO2D ---
Date of Exam: 09/16/2020 Ordering Physician: DR. ANA BARRY Room #: 103 Reason for Echo: NEW ONSET ATRIAL FIBRILLATION, HYPOTENSION, CABG'S, CHF M-Mode Normal Adult Results LV Dimensions Normal Adult Results AoV Opening excursions >1.6 >1.6 LVEDD-base- 3.5-5.8 5.8 Ao root dimensions 2.0-3.7 3.7 LVESD-base- 3.1-4.6 L. Atrium dimensions 1.9-3.8 5.3 Post. Wall thickness 0.8-1.1 1.2 IV septum (thickness) 0.7-1.2 1.3 Post. Wall excursion 0.72-1.3 0.9 Septal motion 0.6 Systolic motion R. Ventricular cavity 1.5-2.0 NORMAL LVEF 60% 35-40% Paradoxical septal wall motion NORMAL 2-D : ENLARGED LEFT ATRIAL CAVITY--BORDERLINE ENLARGED LEFT VENTRICLE CAVITY--HYPOKINETIC LEFT VENTRICLE--VALVES NORMAL--NO EFFUSION, NO THROMBUS COLOR FLOW: MODERATE MITRAL REGURGITATION M-MODE: MV: NORMAL AV: NORMAL TV: NORMAL PV: CHAMBER SIZE: ENLARGED LEFT ATRIAL AND LEFT VENTRICLE CAVITIES WALL MOTION: HYPOKINETIC LEFT VENTRICLE PERICARDIUM: NORMAL INTERPRETATION: 1. LEFT VENTRICLE HYPERTROPHY WITH MARKEDLY ENLARGED LEFT ATRIAL CAVITY 2. ENLARGED LEFT VENTRICLE 3. HYPOCINETIC LEFT VENTRICLE WITH EJECTION FRACTION 35% TO 40% 4. MODERATE MITRAL REGURGITATION MTDD
[2020-09-17] MEDS: COREG PO SCH ×2 (09:11→16:50)
[2020-09-17] MEDS: PLAVIX PO SCH (09:11)
[2020-09-17] MEDS: COZAAR PO SCH (09:11)
[2020-09-17] MEDS: K-DUR PO SCH ×2 (09:11→16:49)
[2020-09-17] MEDS: ASPIRIN CHEWABLE PO SCH (09:11)
[2020-09-17] MEDS: CALCIUM 500 + VIT D 5 MCG (200 IU) TABLET PO SCH ×2 (09:11→20:15)
[2020-09-17] MEDS: ALDACTONE PO SCH ×2 (09:11→20:14)
[2020-09-17] MEDS: FERROUS SULFATE PO SCH (09:11)
[2020-09-17] MEDS: ARICEPT PO SCH (09:12)
--- NOTE | 2020-09-17 09:16 | PCM.PROG ---
Attending Provider: ATTENDING PROVIDER: Dr. ANA TIERNEY This patient is seen with Trinidad Heard, Nurse Practitioner. DATE OF SERVICE: 09/17/20 SUBJECTIVE: This 84 year old /WHITE F was hospitalized 09/13/20. The patient is resting comfortably. Still some shortness of breath with exertion. Rate has been controlled. Hemoglobin down from 10.2 to 9.3. Two units of blood yesterday. REVIEW OF SYSTEMS: CONSTITUTIONAL: Weakness. No night sweats. No fatigue, malaise, lethargy. No fever or chills. HEENT: Eyes: No visual changes. No eye pain. No eye discharge. ENT: No runny nose. No epistaxis. No sinus pain. No odynophagia. No congestion. RESPIRATORY: No cough, no congestion. No hemoptysis. Shortness of breath. CARDIOVASCULAR: No angina symptoms. No CHF symptoms. No atypical chest pain for CAD. No palpitations. No orthopnea.. GASTROINTESTINAL: No abdominal pain. No nausea or vomiting. No diarrhea or constipation. No hematemesis. No hematochezia. GENITOURINARY: No urgency. No frequency. No dysuria. No hematuria. No obstructive symptoms. No discharge. No pain. No significant abnormal bleeding. MUSCULOSKELETAL: No musculoskeletal pain; no joint swelling. NEUROLOGICAL: Awake, alert, oriented to time, place and person. No headache. No neck pain. No syncope. No seizures. No dizziness. PSYCHIATRIC: Not anxious. No depression. No suicidal thoughts. No homicidal thoughts. SKIN: No rash. No lesions. No wounds. ENDOCRINE: No unexplained weight loss. No weight gain. HEMATOLOGIC/LYMPHATIC: Anemia. No purpura. No petechiae. No prolonged or excessive bleeding. No palpable lymph nodes. PHYSICAL EXAMINATION: GENERAL: The patient is awake, alert and oriented, lying/sitting in bed in no distress. Pallor positive. VITAL SIGNS: Temperature 98.0 F, Pulse 75, Respiratory Rate 18, BP 114/70, Pulse Ox 98% HEENT: Head normocephalic, atraumatic. Eyes: Extraocular muscles are intact. Pupils are equal, round and reactive to light and accommodation. Ears: No lesions. Nose appeared normal. Throat: No exudate or erythema. NECK: Supple. No JVD, no carotid bruit. No lymphadenopathy or thyromegaly. LUNGS: Diminished breath sounds. Clear to auscultation. Percussion note normal. Chest symmetrical. HEART: Irregular heart rate. S1, S2, no S3. No murmurs. No cyanosis or clubbing. No ascites. Pulses: Dorsalis pedis and posterior tibial pulses +1 to +2 both sides. ABDOMEN: Soft. Non-tender. Bowel sounds active. No CVA tenderness. No mass felt. EXTREMITIES: No edema. Full range of motion of all extremities, equal. NEUROLOGIC: No focal deficit. Cranial nerves II through XII are grossly intact. No headache. No double vision. SKIN: Not dry. Intact. Turgor-normal. LYMPHATIC: No palpable lymph nodes/no lymphedema. MUSCULOSKELETAL: Normal joints with no swelling. Muscle tone is normal. LAB REVIEW: 09/17/20 04:36 09/17/20 04:36 09/17/20 04:36: Sodium 139.4, Potassium 3.95, Chloride 109.0 H, Carbon Dioxide 25.1, Anion Gap 9.25, BUN 21.2 H, Creatinine 1.00, Estimated GFR (MDRD) 53.00, BUN/Creatinine Ratio 21.20, Glucose 108.6 H, Calcium 8.28 L, Total Bilirubin 0.61, AST 23.2, ALT 28.9, Alkaline Phosphatase 86.3, NT-Pro-B Natriuret Pep 37889.000 H, Total Protein 6.01 L, Albumin 3.13 L, Globulin 2.88, Albumin/Globulin Ratio 1.08 09/17/20 04:36: WBC 2.58 L, RBC 2.90 L, Hgb 9.3 L, Hct 27.0 L, MCV 93.1, MCH 32 .1 H, MCHC 34.4, RDW Coeff of Shadi 15.9 H, Plt Count 92 L, Neutrophils % (Manual) 12.0 L, Lymphocytes % (Manual) 48.0, Monocytes % (Manual) 37.0 H, Eosinophils % (Manual) 2.0, Myelocytes % 1.0, Anisocytosis Not present 09/16/20 17:19: Hgb 10.2 L, Hct 30.1 L D 09/15/20 12:56: Blood Type A POSITIVE, Antibody Screen Negative, Crossmatch ( G) See Detail ASSESSMENT: Please see below. 1. Anemia 2. New onset atrial fib 3. Generalized weakness PLAN: 1. Continue to monitor. 2. CBC. 3. The patient has appointment with Dr. Contreras on Thursday. Plan and coordination of the patient's care discussed in the presence of Sales Operations Director and nurse. CONDITION: Stable SCRIBED BY: KENIA URRUTIA Time Cycle Operator scribed while in presence of service performed by Dr. Tierney/Trinidad Heard APRN on 09/17/20 ([id number])
--- NOTE | 2020-09-17 11:53 | PN ---
DATE OF SERVICE: 09/13/20 - ADMIT NOTE SUBJECTIVE: The patient was seen and examined with the nurse practitioner. Her physical was done with care plan. The patient is admitted with new onset atrial fibrillation, hypotension, weakness, has anemia with thrombocytopenia and leukopenia. PHYSICAL EXAMINATION: HEENT: Head normocephalic, atraumatic. Eyes: Extraocular muscles are intact. Pupils are equal, round and reactive to light and accommodation. Ears: No lesions. Nose appeared normal. Throat: No exudate or erythema. NECK: Supple. No JVD, no carotid bruit. No lymphadenopathy or thyromegaly. LUNGS: Clear to auscultation. Percussion note normal. Chest symmetrical. HEART: S1, S2, no S3. No murmurs. No cyanosis or clubbing. No ascites. Pulses: Dorsalis pedis and posterior tibial pulses +1 to +2 bilaterally. ABDOMEN: Soft. Nontender. Bowel sounds active. No ascites. No CVA tenderness. No mass felt. EXTREMITIES: No edema. Full range of motion of all extremities, equal. NEUROLOGIC: No focal deficit. Cranial nerves II through XII are grossly intact. No headache. No double vision. SKIN: Not dry. Intact. Turgor - normal. LYMPHATIC: No palpable lymph nodes/no lymphedema. MUSCULOSKELETAL: Normal joints with no swelling. Muscle tone is normal. PLAN: 1. Routine telemetry orders with serial EKGs, cardiac markers. 2. Echocardiogram to evaluate LV function. 3. Monitor oxygen level. 4. Telemetry. 5. IV fluids, 2000 cc total. TIME SPENT: More than 30 minutes. Plan and coordination of the patient's care discussed in the presence of nurse. KARYN
--- NOTE | 2020-09-17 11:59 | PN ---
DATE OF SERVICE: 09/16/2020 SUBJECTIVE: 84 year old white female hospitalized with new onset atrial fibrillation, generalized fatigue, weakness and hypotension. The patient's other problem is anemia. She has been given one unit of packed red cells. She went into CHF and has responded to Lasix. The patient's hgb today is 8.2, hct 23.9. The patient's cardiovascular status seems to be stable with no symptoms of CHF. REVIEW OF SYSTEMS: CONSTITUTIONAL: No night sweats. No fatigue, malaise, lethargy. No fever or chills. Feeling good, much better. HEENT: Eyes: No visual changes. No eye pain. No eye discharge. ENT: No runny nose. No epistaxis. No sinus pain. No sore throat. No odynophagia. No congestion. RESPIRATORY: No cough, no congestion. No hemoptysis. No shortness of breath. CARDIOVASCULAR: No angina symptoms. No CHF symptoms. No atypical chest pain for CAD. No palpitations. No PND. No orthopnea. GASTROINTESTINAL: No abdominal pain. No nausea or vomiting. No diarrhea or constipation. No hematemesis. No hematochezia. Appetite has improved. GENITOURINARY: No urgency. No frequency. No dysuria. No hematuria. No obstructive symptoms. No discharge. No pain. No significant abnormal bleeding. MUSCULOSKELETAL: No musculoskeletal pain; no joint swelling. NEUROLOGICAL: No headache. No neck pain. No syncope. No seizures. No dizziness. PSYCHIATRIC: Not anxious. No depression. No suicidal thoughts. No homicidal thoughts. SKIN: No rash. No lesions. No wounds. ENDOCRINE: No unexplained weight loss. No weight gain. HEMATOLOGIC/LYMPHATIC: No anemia. No purpura. No petechiae. No prolonged or excessive bleeding. No palpable lymph nodes. PHYSICAL EXAMINATION: VITAL SIGNS: Temperature 97.5, pulse 84, respiratory rate 20, blood pressure 114/72 and pulse ox 94% at room air. HEENT: Head normocephalic, atraumatic. Eyes: Extraocular muscles are intact. Pupils are equal, round and reactive to light and accommodation. Ears: No lesions. Nose appeared normal. Throat: No exudate or erythema. NECK: Supple. No JVD, no carotid bruit. No lymphadenopathy or thyromegaly. LUNGS: Decreased breath sounds but clear with few crepitations at base. Percussion note normal. Chest symmetrical. HEART: S1, S2, no S3. No murmurs. No cyanosis or clubbing. No ascites. Pulses: Dorsalis pedis and posterior tibial pulses +1 to +2 bilaterally. ABDOMEN: Soft. Nontender. Bowel sounds active. No CVA tenderness. No mass felt. EXTREMITIES: No edema. Full range of motion of all extremities, equal. NEUROLOGIC: No focal deficit. Cranial nerves II through XII are grossly intact. No headache. No double vision. SKIN: Not dry. Intact. Turgor - normal. LYMPHATIC: No palpable lymph nodes/no lymphedema. MUSCULOSKELETAL: Normal joints with no swelling. Muscle tone is normal. LABS: Hgb 8.2, hct 23, WBC 2,700 with plt count of 108,000, creatinine 1.1, BUN 20, potassium 3.5. ASSESSMENT: 1. Atrial fibrillation now has normal ventricular response 2. CHF resolved with Lasix 3. LV dysfunction with ejection fraction 35%. The patient has an echocardiogram done this morning which showed borderline LV cavity, enlarged LA cavity 5.2 with ejection fraction of 35%. The patient's cardiac status has changed a couple of year of course the patient is in atrial fibrillation. 4. Hypokalemia has resolved PLAN: 1. Aldactone 25mg twice a day 2. 20mg PO Lasix daily 3. Discontinue Hydrochlorothiazide 4. The patient was explained about full code. She doesn't know what she wants. She was reluctant to tube in her throat and respirator. She doesn't want any of that. She mentioned that need to talk to the daughters. I talked to Marisol about it and she is going to talk to her sister Neena and she is going to let us know about her status. CONDITION: Stable. The patient is a candidate for Entresto. ADDENDUM: The patient has history of anemia. The patient is on Aspirin at [facility]. The family has been reluctant to put patient on Eliquis or other Novel blood thinners or Coumadin. The patient has an appointment to see Dr. Contreras who is alley tender/oncologist. TIME SPENT: More than 30 minutes. Plan and coordination of the patient's care discussed in the presence of nurse. KARYN
--- NOTE | 2020-09-17 13:01 | PN ---
DATE OF SERVICE: 09/15/20 SUBJECTIVE: 84-year-old white female hospitalized with new onset atrial fibrillation, hypotension, generalized weakness. The patient was dehydrated. She was given slow hydration 2000 cc over two days. Condition seems to have improved. Her hemoglobin is down to 7.8 with hematocrit of 22. She is symptomatic with shortness of breath and fatigue, tired feeling. REVIEW OF SYSTEMS: CONSTITUTIONAL: Fatigue. No night sweats. No malaise, lethargy. No fever or chills. HEENT: Eyes: No visual changes. No eye pain. No eye discharge. ENT: No runny nose. No epistaxis. No sinus pain. No sore throat. No odynophagia. No congestion. RESPIRATORY: No cough, no congestion. No hemoptysis. Shortness of breath on exertion. CARDIOVASCULAR: No angina symptoms. No CHF symptoms. No atypical chest pain for CAD. No palpitations. No PND. No orthopnea. GASTROINTESTINAL: No abdominal pain. No nausea or vomiting. No diarrhea or constipation. No hematemesis. No hematochezia. GENITOURINARY: No urgency. No frequency. No dysuria. No hematuria. No obstructive symptoms. No discharge. No pain. No significant abnormal bleeding. MUSCULOSKELETAL: No musculoskeletal pain; no joint swelling. NEUROLOGICAL: No headache. No neck pain. No syncope. No seizures. No dizziness. PSYCHIATRIC: Not anxious. No depression. No suicidal thoughts. No homicidal thoughts. SKIN: No rash. No lesions. No wounds. ENDOCRINE: No unexplained weight loss. No weight gain. HEMATOLOGIC/LYMPHATIC: No anemia. No purpura. No petechiae. No prolonged or excessive bleeding. No palpable lymph nodes. PHYSICAL EXAMINATION: VITAL SIGNS: Temperature 98.4, pulse 84, respiratory rate 16, blood pressure 117/80, pulse ox 93%. HEENT: Head normocephalic, atraumatic. Eyes: Extraocular muscles are intact. Pupils are equal, round and reactive to light and accommodation. Ears: No lesions. Nose appeared normal. Throat: No exudate or erythema. NECK: Supple. No JVD, no carotid bruit. No lymphadenopathy or thyromegaly. LUNGS: Crepitation at bases but otherwise good air entry. Percussion note normal. Chest symmetrical. HEART: S1, S2, no S3. No murmurs. Rate is 80/min, irregular. No cyanosis or clubbing. No ascites. Pulses: Dorsalis pedis and posterior tibial pulses +1 to +2 bilaterally. ABDOMEN: Soft. No ascites. Nontender. Bowel sounds active. No CVA tenderness. No mass felt. EXTREMITIES: Trace edema. Full range of motion of all extremities, equal. NEUROLOGIC: No focal deficit. Cranial nerves II through XII are grossly intact. No headache. No double vision. SKIN: Not dry. Intact. Turgor - normal. LYMPHATIC: No palpable lymph nodes/no lymphedema. MUSCULOSKELETAL: Normal joints with no swelling. Muscle tone is normal. LABS: Hemoglobin 7.8, hematocrit 22.8, WBC 2,400, normal differential. The patient's platelet count is 113,000. Creatinine 1, BUN 21. Potassium 3.4. ASSESSMENT: 1. Severe anemia from myelodysplastic syndrome followed by Dr. Contreras, had not gone to followup for nearly a year from [facility]. 2. New onset atrial fibrillation. 3. Cardiomegaly with history of LV dysfunction. 4. Coronary bypass surgery. 5. Hypokalemia. 6. History of hypertension. PLAN: 1. Add K-Tab 20 mEq two tablets twice a day, 40 mEq extra potassium today. 2. Type and crossmatch 2 units. Will give 1 unit. 3. Monitor the patient's fluid overload situation. 4. Monitor telemetry. 5. The patient's cardiovascular status is somewhat compromised in the way that the patient has severe anemia along with coronary artery bypass surgery and mild LV dysfunction noted on previous echo done a couple of years ago. ADDENDUM: I got a call yesterday in the evening that the patient after getting blood transfusion got into respiratory distress with rate of 130-140/min. The patient was wheezing bilaterally with distress. The order for the Lanoxin 0.25 IV and Cardizem 60 mg p.o. was given along with Lasix IV 20 mg and responded to IV Lasix 20 mg producing nearly 2000 cc overnight. Lanoxin and Cardizem were not given as the patient's condition quickly improved just to IV Lasix. TIME SPENT: More than 60 minutes - Extensive. Plan and coordination of the patient's care discussed in the presence of nurse. KARYN
--- NOTE | 2020-09-17 13:10 | PN ---
BILLING 09/13/20 09/14/20 09/15/20 EXTENSIVE MTDD
[2020-09-17] MEDS: LIPITOR PO SCH (20:15)
[2020-09-17] MEDS: NAMENDA PO SCH (20:15)
[2020-09-17] MEDS: CELEXA PO SCH (20:15)
[2020-09-18 05:23] LABS: HEMATOCRIT 27.2 % (37.0-47.0); HEMOGLOBIN 9.2 g/dl (12.0-16.0); MEAN CORPUSCULAR HEMOGLOBIN 31.6 pg (27.0-31.0); MEAN CORPUSCULAR HGB CONC 33.8 (31.8-35.4); MEAN CORPUSCULAR VOLUME 93.5 fl (81.0-99.0); PLATELET COUNT 93 10^3/uL (140-440); RDW COEFFICIENT OF VARIATION 15.6 % (11.6-14.8); RED BLOOD COUNT 2.91 10^6/ul (4.20-5.40)
[2020-09-18 05:32] VITALS: BP 113/70; TEMP 98.5
[2020-09-18 05:35] LABS: ANISOCYTOSIS NOT PRESENT (NOT PRESENT)
[2020-09-18 05:45] LABS: ALANINE AMINOTRANSFERASE 21.6 U/L (0-35); ALBUMIN 3.2 g/dL (3.5-5.0); ALKALINE PHOSPHATASE 77.3 U/L (53-141); ASPARTATE AMINO TRANSFERASE 17.8 U/L (14-36); BILIRUBIN,TOTAL 0.54 mg/dL (0.2-1.3); CALCIUM 8.57 mg/dL (8.4-10.2); CARBON DIOXIDE 25.3 mmol/L (22-30.0); CHLORIDE 106.8 mmol/L (98-107); CREATININE 1.04 mg/dL (0.60-1.30); POTASSIUM 4.35 mmol/L (3.5-5.1); SODIUM 137.1 mmol/L (134.5-145); TOTAL PROTEIN 6.17 g/dL (6.3-8.2)
[2020-09-18] MEDS: PROTONIX PO SCH (05:51)
[2020-09-18] MEDS: CARAFATE PO SCH ×2 (05:52→11:33)
[2020-09-18] MEDS: LASIX TAB PO SCH (05:52)
[2020-09-18] MEDS ORDERED: ELIQUIS PO SCH (09:00)
[2020-09-18 09:18] LABS: ABG O2 HGB 95.2 % (95-100); ABG PH 7.46 (7.35-7.45); BEecf 0.4 (-2.0-3.0); COHb 2.2 (0.5-1.5); HCO3 24.2 (21-28); MetHb 0.8 (0-1.5); TCO2 25.2 (19-24); tHb 10.5 g/dl (11.7-17.4)
--- NOTE | 2020-09-18 09:41 | PCM.PROG ---
Attending Provider: ATTENDING PROVIDER: Dr. ANA TIERNEY This patient is seen with Trinidad Heard, Nurse Practitioner. DATE OF SERVICE: 09/18/20 SUBJECTIVE: This 84 year old /WHITE F was hospitalized 09/13/20. The patient is resting comfortably in bed. The patient's hemoglobin is stable today. Likely there is no active bleeding, only myelodysplastic syndrome. She remains in atrial fibrillation. She has appointment with Dr. Contreras tomorrow. Will start on Eliquis and discontinue Plavix. REVIEW OF SYSTEMS: CONSTITUTIONAL: Weakness. No night sweats. No fatigue, malaise, lethargy. No fever or chills. HEENT: Eyes: No visual changes. No eye pain. No eye discharge. ENT: No runny nose. No epistaxis. No sinus pain. No odynophagia. No congestion. RESPIRATORY: No cough, no congestion. No hemoptysis. Shortness of air at rest and on exertion. CARDIOVASCULAR: No angina symptoms. No CHF symptoms. No atypical chest pain for CAD. No palpitations. No orthopnea. GASTROINTESTINAL: No abdominal pain. No nausea or vomiting. No diarrhea or constipation. No hematemesis. No hematochezia. GENITOURINARY: No urgency. No frequency. No dysuria. No hematuria. No obstructive symptoms. No discharge. No pain. No significant abnormal bleeding. MUSCULOSKELETAL: No musculoskeletal pain; no joint swelling. NEUROLOGICAL: Awake, alert, intermittent confusion. No headache. No neck pain. No syncope. No seizures. No dizziness. PSYCHIATRIC: Not anxious. No depression. No suicidal thoughts. No homicidal thoughts. SKIN: No rash. No lesions. No wounds. ENDOCRINE: No unexplained weight loss. No weight gain. HEMATOLOGIC/LYMPHATIC: Anemia. No purpura. No petechiae. No prolonged or e xcessive bleeding. No palpable lymph nodes. PHYSICAL EXAMINATION: GENERAL: The patient is awake, alert and oriented, lying/sitting in bed in no distress. VITAL SIGNS: Temperature 98.5 F, Pulse 80, Respiratory Rate 18, BP 113/70, Pulse Ox 98% HEENT: Head normocephalic, atraumatic. Eyes: Extraocular muscles are intact. Pupils are equal, round and reactive to light and accommodation. Ears: No lesions. Nose appeared normal. Throat: No exudate or erythema. NECK: Supple. No JVD, no carotid bruit. No lymphadenopathy or thyromegaly. LUNGS: Diminished breath sounds. Clear to auscultation. Percussion note normal. Chest symmetrical. HEART: Irregular heart rate. S1, S2, no S3. No murmurs. No cyanosis or clubbing. No ascites. Pulses: Dorsalis pedis and posterior tibial pulses +1 to +2 both sides. ABDOMEN: Soft. Non-tender. Bowel sounds active. No CVA tenderness. No mass felt. EXTREMITIES: No edema. Full range of motion of all extremities, equal. NEUROLOGIC: No focal deficit. Cranial nerves II through XII are grossly intact. No headache. No double vision. SKIN: Not dry. Intact. Turgor-normal. LYMPHATIC: No palpable lymph nodes/no lymphedema. MUSCULOSKELETAL: Normal joints with no swelling. Muscle tone is normal. LAB REVIEW: 09/18/20 04:35 09/18/20 04:35 09/18/20 04:35: Sodium 137.1, Potassium 4.35, Chloride 106.8, Carbon Dioxide 25.3, Anion Gap 9.35, BUN 25.0 H, Creatinine 1.04, Estimated GFR (MDRD) 50.00, BUN/Creatinine Ratio 24.03, Glucose 105.0, Calcium 8.57, Total Bilirubin 0.54, AST 17.8, ALT 21.6, Alkaline Phosphatase 77.3, Total Protein 6.17 L, Albumin 3.20 L, Globulin 2.97, Albumin/Globulin Ratio 1.07 09/18/20 04:35: WBC 2.20 L, RBC 2.91 L, Hgb 9.2 L, Hct 27.2 L, MCV 93.5, MCH 31.6 H, MCHC 33.8, RDW Coeff of Shadi 15.6 H, Plt Count 93 L, Neutrophils % (Manual) 14.0 L, Lymphocytes % (Manual) 60.0 H, Monocytes % (Manual) 26.0 H, Anisocytosis Not present ASSESSMENT: Please see below. 1. Anemia 2. Atrial fibrillation 3. Generalized weakness 4. CHF PLAN: 1. Discontinue Aspirin. 2. Discontinue Plavix. 3. Start Eliquis 2.5 mg b.i.d. 4. The patient had three-step for 02, which the patient qualifies for. She will require 02 at discharge and will need continuous oxygen due to shortness of air at rest and on exertion with diagnosis of CHF. 5. Appointment with Dr. Contreras tomorrow at noon for anemia 6. At this point, respiratory status and anemia are stable. 7. Will hold giving Losartan and Aldactone this a.m. until advised otherwise by Trinidad. 8. ABGs on 3L/NC. Plan and coordination of the patient's care discussed in the presence of Manager Facility and nurse. CONDITION: Stable SCRIBED BY: KENIA URRUTIA Specialty Molder scribed while in presence of service performed by Dr. Tierney/Trinidad Heard APRN on 09/18/20 ([id number])
[2020-09-18] MEDS: K-DUR PO SCH (09:50)
[2020-09-18] MEDS: ASPIRIN CHEWABLE PO SCH (09:50)
[2020-09-18] MEDS: ALDACTONE PO SCH (10:09)
[2020-09-18] MEDS: COREG PO SCH (10:09)
[2020-09-18] MEDS: CALCIUM 500 + VIT D 5 MCG (200 IU) TABLET PO SCH (10:10)
[2020-09-18] MEDS: ARICEPT PO SCH (10:10)
[2020-09-18] MEDS: COZAAR PO SCH (10:10)
[2020-09-18] MEDS: FERROUS SULFATE PO SCH (10:10)
--- NOTE | 2020-09-18 12:37 | CM.DICTOOL ---
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, STAGE 3-4 RENAL ARTERY STENOSIS WITH STENT CAROTID STENOSIS DEMENTIA CAD WITH STENT X2 (2017) B12 DEFICIENCY THROMBOCYTOPENIA VITAMIN D DEFICIENCY HIATAL HERNIA, LARGE DEPRESSION NON COMPLIANCE WITH MEDS, DIET AND FOLLOW-UP CABG, 1992 CARDIAC STENTS, 2010 RENAL ARTERY STENT LUMPECTOMY, RIGHT BREAST, 1982 HIP FRACTURE AND REPAIR, RIGHT 06/2019 ECHOCARDIOGRAM, COMPLETED 09/16/2020 LVEF 35-40% LVH WITH MARKEDLY ENLARGED LEFT ATRIAL CAVITY (5.3) MODERATE MITRAL REGURGITATION LAST VITALS Temp Pulse Resp BP Pulse Ox 98.5 F 80 16 113/70 96 09/18/20 05:30 09/18/20 08:00 09/18/20 08:00 09/18/20 05:30 09/18/20 10:00 TAKE THESE MEDICATIONS AT HOME Apixaban (Apixaban 5 Mg Tab) 2.5 mg PO BID [facility] (NEW RX) Last Admin: 09/18/20 10:11 Dose: 2.5 mg Documented by: Atorvastatin Calcium (Atorvastatin Calcium 10 Mg Tablet) 10 mg PO BEDTIME [facility] Last Admin: 09/17/20 20:15 Dose: 10 mg Documented by: Calcium/Vitamin D (Calcium Carbonate/Vitamin D3 500 Mg/5 Mcg(200iu) 1 Each Tablet) 1 each PO BID [facility] Last Admin: 09/18/20 10:10 Dose: 1 each Documented by: Carvedilol (Carvedilol 12.5 Mg Tablet) 12.5 mg PO BIDWM [facility] Last Admin: 09/18/20 10:09 Dose: 12.5 mg Documented by: Citalopram Hydrobromide (Citalopram Hydrobromide 20 Mg Tablet) 20 mg PO BEDTIME [facility] Last Admin: 09/17/20 20:15 Dose: 20 mg Documented by: Donepezil HCl (Donepezil Hcl 10 Mg Tablet) 5 mg PO DAILY [facility] Last Admin: 09/18/20 10:10 Dose: 5 mg Documented by: Ferrous Sulfate (Ferrous Sulfate 324 Mg Tablet.) 324 mg PO DAILY [facility] Last Admin: 09/18/20 10:10 Dose: 324 mg Documented by: Furosemide (Furosemide 20 Mg Tablet) 20 mg PO QDAC [facility] (NEW RX) Last Admin: 09/18/20 05:52 Dose: 20 mg Documented by: Losartan Potassium (Losartan Potassium 25 Mg Tablet) 50 mg PO DAILY [facility] (NEW RX) Last Admin: 09/18/20 10:10 Dose: 50 mg Documented by: Memantine (Memantine Hcl 10 Mg Tablet) 10 mg PO BEDTIME [facility] Last Admin: 09/17/20 20:15 Dose: 10 mg Documented by: Pantoprazole Sodium (Pantoprazole Sodium 40 Mg Tablet.Dr) 40 mg PO DAILY AC [facility] Last Admin: 09/18/20 05:51 Dose: 40 mg Documented by: Potassium Chloride (Potassium Chloride 10 Meq Capsule.Er) 10 meq PO DAILYWM [facility] (NEW RX) LAST ADMIN: 09/18/2020 Spironolactone (Spironolactone 25 Mg Tablet) 25 mg PO BID [facility] (NEW RX) Last Admin: 09/18/20 10:09 Dose: 25 mg Documented by: Sucralfate (Sucralfate 1 Gm Tablet) 1 gm PO ACHS [facility] Last Admin: 09/18/20 05:52 Dose: 1 gm Documented by: ALLERGIES Sulfa (Sulfonamide Antibiotics) Allergy (Verified 06/10/19 09:39) Itching DISCONTINUED MEDICATIONS AMLODIPINE ASPIRIN PLAVIX K-DUR 20 MEQ LOSARTAN/HCTZ NEW PRESCRIPTIONS: ELIQUIS 2.5 MG BID (SAMPLES GIVEN AND 30 DAY VOUCHER) LASIX 20 MG DAILY ALDACTONE 25 MG BID COZAAR 50 MG DAILY K-DUR 10 MEQ DAILY (OK FOR PHARMACY TO DO KLOR-CON 10M PER WILFRED) ALL RX CALLED TO [email or web address] IN [place], [place] AT REQUEST OF DAUGHTER SMOKING: NOT APPLICABLE DISEASE SPECIFIC EDUCATION: USE OF OXYGEN, CONTINUOUSLY USE OF ELIQUIS; INCREASED RISK OF BLEEDING, ESPECIALLY GI AND INTRACRANIAL BLEEDING (DISCUSSED WITH DAUGHTER, SHARDA) STOPPING ALL NSAIDS (DISCUSSED WITH DAUGHTER, SHARDA) PATIENT IS ALERT TO PERSON, PLACE BUT IS FORGETFUL LAB REVIEW: 09/18/20 04:35 09/18/20 04:35 09/18/20 09:10: Puncture Site R rad, Base Excess 0.4, O2 Saturation 97.0, ABG pH 7.46 H, ABG pCO2 34.0 L, ABG pO2 86.0, ABG HCO3 24.2, ABG Total CO2 25.2 H, A llen Test Y, Hemoglobin 0.8, Oxyhemoglobin 95.2, Carboxyhemoglobin 2.2 H, Total Hemoglobin 10.5 L, O2 Delivery Device Cannula, Oxygen Liter Flow 3.00 09/18/20 04:35: Sodium 137.1, Potassium 4.35, Chloride 106.8, Carbon Dioxide 25.3, Anion Gap 9.35, BUN 25.0 H, Creatinine 1.04, Estimated GFR (MDRD) 50.00, BUN/Creatinine Ratio 24.03, Glucose 105.0, Calcium 8.57, Total Bilirubin 0.54, AST 17.8, ALT 21.6, Alkaline Phosphatase 77.3, Total Protein 6.17 L, Albumin 3.20 L, Globulin 2.97, Albumin/Globulin Ratio 1.07 09/18/20 04:35: WBC 2.20 L, RBC 2.91 L, Hgb 9.2 L, Hct 27.2 L, MCV 93.5, MCH 31.6 H, MCHC 33.8, RDW Coeff of Shadi 15.6 H, Plt Count 93 L, Neutrophils % (Manual) 14.0 L, Lymphocytes % (Manual) 60.0 H, Monocytes % (Manual) 26.0 H, Anisocytosis Not present PLAN: DISCHARGE HOME DIET: REGULAR TOLERATED ACTIVITY: RESUME TOLERATED, USE OXYGEN CONTINUOUSLY AT 2 LITERS USE OXYGEN AT 2 LITERS, CONTINUOUSLY ([facility]) KEEP SCHEDULED APPOINTMENT WITH DR. HICKS ON September AT 12 NOON AN APPOINTMENT IS SCHEDULED WITH DR. BARRY/WILFRED UMANZOR APRN/GUILLERMINA MARTINO APRN ON September AT 9:15 AM CODE STATUS: DO NOT INTUBATE, CPR ONLY MS. SERNA IS ALERT TO PERSON, PLACE. SHE LIVES ALONE. SHE AND THE FAMILY ARE AGREEABLE WITH PLANS FOR DISCHARGE HOME. MS. SERNA IS ACTIVE OUTSIDE OF THE HOME; WORKING AT [email or web address] AND GOING OUT TO EAT WITH FAMILY/FRIEND. SHE IS DISORIENTED TO TIME, SITUATION. SHE IS FORGETFUL. SHE IS INDEPENDENT WITH ACTIVITIES OF DAILY LIVING. SHE TRANSFERS PER SELF FROM BED TO CHAIR AND IS AMBULATORY IN THE ROOM WITH USE OF OXYGEN AND STAND BY ASSISTANCE. MS. SERNA FEEDS HERSELF AND DEMONSTRATES A GOOD APPETITE WITH MEAL INTAKES OF 75-100% NOTED. SHE IS CONTINENT OF BOWEL AND BLADDER. HER COLORING IS PALE. SKIN IS WARM/DRY. SKIN IS INTACT. HYDRATION STATUS HAS IMPROVED. A REFERRAL TO [facility] WAS MADE AT THE REQUEST OF THE DAUGHTERS FOR HOMEMAKER SERVICES. THE PATIENT DEMONSTRATED A NEED FOR CONTINUOUS OXYGEN. [facility] WAS CONTACTED TO SUPPLY THE OXYGEN. MD WILFRED BAXTER, CHRISTOFER
--- NOTE | 2020-09-18 13:06 | PN ---
DATE OF SERVICE: 09/17/2020 SUBJECTIVE: The patient was seen and examined with the Nurse Practitioner. The patient's condition is stable. She got second unit of packed red cells. Her hgb is 9 with hct of 28. No active GI bleed. The patient has myelodysplastic syndrome. She is going to be followed by Dr. Contreras. She is going to be seen in the next two days. Dilemma is whether to put the patient on Eliquis likely we may have to just put her on Eliquis and see how she does on it. Discontinue Plavix and aspirin. The patient is in atrial fibrillation. She has LV dysfunction with dilated cardiomyopathy likely ischemic. The patient's CHF is under control with Lasix, Aldactone and ARB. TIME SPENT: More than 30 minutes. Plan and coordination of the patient's care discussed in the presence of nurse. KARYN
--- NOTE | 2020-09-18 13:33 | HP ---
DATE OF SERVICE: 09/13/2020 REASON FOR HOSPITALIZATION/HISTORY OF PRESENT ILLNESS: Followup on atrial fibrillation. Repeat Hgb 8.6 was 8.4 in hospital. Very weak, unable to walk to care with sitting. 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 HEENT: No sinus drainage, no sore throat. RESPIRATORY: No cough, no congestion. CARDIOVASCULAR: No atypical chest pain for coronary artery disease. No angina, CHF symptoms. Palpitations. Shortness of breath. GASTROINTESTINAL: No melena or abdominal pain. No GERD. No appetite. GENITOURINARY: No hematuria, no prostatism, no polyuria. SENIOR DATA MODELER: No blackout, no dizziness, no headache, no double vision. Gait: Unsteady. MUSCULOSKELETAL: Osteoarthritis pain, no joint swelling. ENDOCRINE: No weight loss, no weight gain. SKIN: Not dry, no rash. PSYCHIATRIC: Anxious, no depression, no suicidal thoughts, no homicidal thoughts. SOCIAL HISTORY: Martial Status: . Alcohol Usage: No. Tobacco Usage: No. FAMILY HISTORY: Father Mother Brother 1 Sister 2 MEDICATIONS: Citalopram 20mg bedtime Calcium carbonate-vitamin D3 600 one each PO BID Sucralfate 1 gram PO ACHS Aspirin 81mg daily Protonix 40mg QDAC Atorvastatin 10mg PO BEDTIME Namenda 10mg PO BEDTIME Aricept 5mg PO Daily Ferrous sulfate 324mg PO daily Amlodipine 5mg PO BID K-Dur 20meq PO daily Losartan-Hydrochlorothiazide 50-12.5mg PO daily Clopidogrel 75mg PO daily ALLERGIES: Sulfa PHYSICAL EXAMINATION: V/S: Pulse 72, blood pressure 84/56, temperature 98.2, saturation 97%, weight 139.8, height 5'3. GENERAL APPEARANCE: Oriented to person and place only. HEENT: Pale. NECK: No JVP, no bruits. RESPIRATORY: Decreased breath sounds. CARDIOVASCULAR: S1, S2, no S3, no murmur. Irregular. No cyanosis, clubbing. No ascites. GI/ABDOMEN: No tenderness. Bowel sounds are active. EXTREMITIES: edema, pulses +1, equal. SENIOR DATA MODELER: Deep tendon reflexes, sensory, motor and gait all normal. RECTAL: Colonoscopy 11/23 Domingo /PELVIC: Refused. ASSESSMENT: 1. New onset atrial fibrillation 2. Hypotension 3. Generalized weakness 4. Anemia 8.6 5. Status post right hip fracture and repair 05/26, M[place] 6. History of CHF 7. Hiatal hernia 8. PVC's 9. Chronic kidney disease, stage 3/4 10.B12 deficiency 11. Thrombocytopenia only saw Diane X4 12.Vitamin D deficiency 13.Renal artery stenosis with stent 14.Depression 15.Dementia 16.Anemia 17.CAD with stent X2 12/23 18.LVH 19.PAD [id number] 21.Carotid stenosis 22.Non-compliance with medication, diet and followup. PLAN: 1. Routine telemetry orders 2. CBC and CMP now and daily 3. Chest x-ray 4. U/A 5. IV Normal saline at 75cc and hour times two liters 6. Potassium 20meq PO BID 7. Hold Norvasc 8. Anemia profile 9. 2D echo 10. Regular diet 11. O2 at 1-2 liters [address] Contreras 09/19 at 12pm. TIME SPENT: More than 70 minutes. THOMASD
[2020-09-19] MEDS ORDERED: K-DUR PO SCH (08:30)
[2020-09-19] MEDS ORDERED: MICRO-K CAP PO SCH (08:30)
--- NOTE | 2020-09-25 11:58 | DS ---
DATE OF SERVICE: 09/18/20 CODE STATUS: DO NOT INTUBATE, CPR ONLY FINAL DIAGNOSIS: 1. ATRIAL FIBRILLATION 2. HYPOTENSION, RESOLVED 3. ANEMIA, 2 UNITS PACKED CELLS TRANSFUSED 4. CHF 5. 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 CHRONIC KIDNEY DISEASE, STAGE 3-4 7. RENAL ARTERY STENOSIS WITH STENT 8. CAROTID STENOSIS 9. DEMENTIA 10. CAD WITH STENT X2 (2017) 11. B12 DEFICIENCY 12. THROMBOCYTOPENIA 13. VITAMIN D DEFICIENCY 14. HIATAL HERNIA, LARGE 15. DEPRESSION 16. NON COMPLIANCE WITH MEDS, DIET AND FOLLOW-UP 17. CABG, 1992 18. CARDIAC STENTS, 2009 19. RENAL ARTERY STENT 20. LUMPECTOMY, RIGHT BREAST, 1981 21. HIP FRACTURE AND REPAIR, RIGHT 06/2019 22. ECHOCARDIOGRAM, COMPLETED 09/16/2020, LVEF 35-40%, LVH WITH MARKEDLY ENLARGED LEFT ATRIAL CAVITY (5.3), MODERATE MITRAL REGURGITATION LAST VITALS Temp Pulse Resp BP Pulse Ox 98.5 F 80 16 113/70 96 09/18/20 05:30 09/18/20 08:00 09/18/20 08:00 09/18/20 05:30 09/18/20 10:00 DISCHARGE INSTRUCTIONS: 1. DISCHARGE HOME. 2. KEEP SCHEDULED APPOINTMENT WITH DR. CONTRERAS ON September AT 12 NOON AN APPOINTMENT IS SCHEDULED WITH DR. TIERNEY/WILFRED UMANZOR APRN/GUILLERMINA MARTINO APRN ON September AT 9:15 AM. 3. USE OXYGEN AT 2 LITERS, CONTINUOUSLY ([facility]). MEDICATIONS AT DISCHARGE: Apixaban (Apixaban 5 Mg Tab) 2.5 mg PO BID [facility] (NEW RX) Last Admin: 09/18/20 10:11 Dose: 2.5 mg Documented by: Atorvastatin Calcium (Atorvastatin Calcium 10 Mg Tablet) 10 mg PO BEDTIME [facility] Last Admin: 09/17/20 20:15 Dose: 10 mg Documented by: Calcium/Vitamin D (Calcium Carbonate/Vitamin D3 500 Mg/5 Mcg(200iu) 1 Each Tablet) 1 each PO BID [facility] Last Admin: 09/18/20 10:10 Dose: 1 each Documented by: Carvedilol (Carvedilol 12.5 Mg Tablet) 12.5 mg PO BIDWM [facility] Last Admin: 09/18/20 10:09 Dose: 12.5 mg Documented by: Citalopram Hydrobromide (Citalopram Hydrobromide 20 Mg Tablet) 20 mg PO BEDTIME [facility] Last Admin: 09/17/20 20:15 Dose: 20 mg Documented by: Donepezil HCl (Donepezil Hcl 10 Mg Tablet) 5 mg PO DAILY [facility] Last Admin: 09/18/20 10:10 Dose: 5 mg Documented by: Ferrous Sulfate (Ferrous Sulfate 324 Mg Tablet.) 324 mg PO DAILY [facility] Last Admin: 09/18/20 10:10 Dose: 324 mg Documented by: Furosemide (Furosemide 20 Mg Tablet) 20 mg PO QDAC [facility] (NEW RX) Last Admin: 09/18/20 05:52 Dose: 20 mg Documented by: Losartan Potassium (Losartan Potassium 25 Mg Tablet) 50 mg PO DAILY [facility] (NEW RX) Last Admin: 09/18/20 10:10 Dose: 50 mg Documented by: Memantine (Memantine Hcl 10 Mg Tablet) 10 mg PO BEDTIME [facility] Last Admin: 09/17/20 20:15 Dose: 10 mg Documented by: Pantoprazole Sodium (Pantoprazole Sodium 40 Mg Tablet.) 40 mg PO DAILY AC [facility] Last Admin: 09/18/20 05:51 Dose: 40 mg Documented by: Potassium Chloride (Potassium Chloride 10 Meq Capsule.Er) 10 meq PO DAILYWM [facility] (NEW RX) LAST ADMIN: 09/18/2020 Spironolactone (Spironolactone 25 Mg Tablet) 25 mg PO BID [facility] (NEW RX) Last Admin: 09/18/20 10:09 Dose: 25 mg Documented by: Sucralfate (Sucralfate 1 Gm Tablet) 1 gm PO ACHS [facility] Last Admin: 09/18/20 05:52 Dose: 1 gm Documented by: NEW PRESCRIPTIONS: ELIQUIS 2.5 MG BID (SAMPLES GIVEN AND 30 DAY VOUCHER) LASIX 20 MG DAILY ALDACTONE 25 MG BID COZAAR 50 MG DAILY K-DUR 10 MEQ DAILY (OK FOR PHARMACY TO DO KLOR-CON 10M PER WILFRED) ALL RX CALLED TO [facility] IN [place], [place] AT REQUEST OF DAUGHTER DISCONTINUED MEDICATIONS: AMLODIPINE ASPIRIN PLAVIX K-DUR 20 MEQ LOSARTAN/HCTZ DIET INSTRUCTIONS: REGULAR TOLERATED ACTIVITY: RESUME TOLERATED, USE OXYGEN CONTINUOUSLY AT 2 LITERS SMOKING: NOT APPLICABLE DISEASE SPECIFIC EDUCATION: USE OF OXYGEN, CONTINUOUSLY USE OF ELIQUIS; INCREASED RISK OF BLEEDING, ESPECIALLY GI AND INTRACRANIAL BLEEDING (DISCUSSED WITH DAUGHTER, SHARDA) STOPPING ALL NSAIDS (DISCUSSED WITH DAUGHTER, SHARDA) PATIENT IS ALERT TO PERSON, PLACE BUT IS FORGETFUL HOSPITAL COURSE: This is an 84-year-old white female who was seen in our office with new onset atrial fibrillation. She was hypotensive, short of breath, very weak. She had gotten labs two days earlier. Hemoglobin was 8.3. We admitted her, placed her on routine telemetry orders. ABGs showed p02 of 58. She was placed on oxygen via nasal cannula at 2L. UA was normal. Chest x-ray was normal. Dr. Tierney did an echo which showed decreased ejection fraction of about 35%, had previously been 50%. We did add Aldactone 25 mg p.o. b.i.d. along with Lasix 20 daily. On Thursday she became anemic, received one unit of blood and then became increasingly short of breath, was given IV Lasix. She was originally on Norvasc. This was discontinued on admission due to her hypotension. She received a total of two units of blood. Anemia profile was done. 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 We did make the decision after hemoglobin has been stable for two days at 9.2 and 9.3 to discontinue her aspirin and Plavix and start her on Eliquis 2.5 mg p.o. b.i.d. for the atrial fibrillation and risk of stroke. We have discussed in great detail with her family, risk of bleeding associated with atrial fibrillation and her anemia along with risk of CVA and other complications from atrial fibrillation and they are in agreement. She did have a three-step and will require home oxygen. We did debate on whether or not she may be a candidate for Entresto further down the road; however, she is stable at this point from a cardiac standpoint and a respiratory standpoint so we will let her see Dr. Contreras tomorrow for further evaluation of her anemia and then followup with her in the office on and see where we are at. Initially, she was hypokalemic. She was on 40 mEq of potassium which we have taken down to 10 mEq daily with a potassium of 4.3 today. Today, on day of discharge white count 2.2, hemoglobin 9.2, hematocrit 27.2, platelets 93,000. BUN 25, creatinine 1.04. Vital signs are also stable. Blood pressure has improved with 113/70, pulse ox 98% on 2L. She has been eating well, up and around in the room with minimal shortness of breath. BNP on admission was 10,300, today is 10,800 so again we will continue to monitor her very closely and will followup with her later in the week at the office. She is discharged in stable condition. TIME SPENT: More than 60 minutes. KARYN
== END 2020-09-18 13:10 | disposition home or self-care (01) | DRG 316 ==
LOC: LAB 12:14 → MEDSURG A 14:00
PROVIDERS: ADMIT Internal Medicine; ATTEND Internal Medicine